=== PATIENT | female | born 1965 | race Caucasian/White ===

== ENCOUNTER 2024-11-14 23:44 | Inpatient (IN) | payer OTHER, SELFPAY ==
[2024-11-15] VITALS (15 sets, daily range): BP systolic 122–188; BP diastolic 62–101; PULSE 79–105; RESP 11–24; TEMP 36.2–37.3; O2SAT 95–99; BMI 31.9
--- NOTE | 2024-11-15 | DI.RAD.S_ITS ---
PROCEDURE: XR PELVIS 1-2V INDICATIONS: RIGHT TOTAL HIP TECHNIQUE: 1 view(s) of the pelvis acquired. COMPARISON: [facility], CR, XR HIP W PEL IF DONE RT 2V, 11/15/2024, 6:47. FINDINGS: Bones: Interval right hip arthroplasty. Left hip arthroplasty is similar to prior. Soft tissues: Postsurgical changes. IMPRESSION: Postsurgical changes following interval right hip arthroplasty. Dictated by: Ty Grant M.D. on 11/15/2024 at 15:08 Approved by: Ty Grant M.D. on 11/15/2024 at 15:09
--- NOTE | 2024-11-15 00:25 | DI.RAD.S_ITS ---
PROCEDURE: XR FEMUR RT MIN 2V INDICATIONS: pt fell with hip pain unable to bear weight TECHNIQUE: Two views of the femur were acquired. COMPARISON: [facility], CR, XR PELVIS WITH LATERAL HIP RIGHT, 06/17/2024, 14:33. FINDINGS: Bones: Decreased mineralization. There are dysplastic changes at the right femoroacetabular joint including femoral head flattening and irregularity of the acetabular cup. No significantly displaced fractures are seen. Nondisplaced fractures cannot be excluded. No hip dislocation. The knee joint is intact. Soft tissues: No suspicious soft tissue calcifications or masses. IMPRESSION: Severe right hip joint degeneration. No displaced fractures are visible. If there continues to be high suspicion for occult fracture, CT imaging is recommended. Dictated by: Chante Cerrato M.D. on 11/15/2024 at 1:07 Approved by: Chante Cerrato M.D. on 11/15/2024 at 1:13
--- NOTE | 2024-11-15 00:57 | PC.NURSE ---
did not assess pedal pulses at this time, pt sitting in w/c and with shoes which were unable to be removed at this time. pt has good sensation to lower extremity
--- NOTE | 2024-11-15 02:46 | ED.FALL ---
HPI - Fall General Chief Complaint: Fall Stated Complaint: fall, chronic rt femur problem Time Seen by Provider: 11/15/24 02:46 Source: patient Mode of arrival: Ambulatory History of Present Illness HPI Narrative: 59-year-old female reports history of severe degenerative arthritis of both hips, prior left hip replacement surgery, awaiting possible right hip surgery replacement through Dr. Novak at surgery [facility], some delay to address dental infection problems before elective surgery, my need dental extractions before elective surgery was possible. Today she was walking her usual arm brace canes, the left cane caught on something, she slipped, left leg crossed in front of her leg, unclear if she landed on her right hip, has had right-sided hip pain since then. Drove herself private vehicle here, having significant pain on weight-bearing. Related Data Allergies Allergy/AdvReac Type Severity Reaction Status Date / Time No Known Drug Allergies Allergy Verified 11/15/24 00:15 Patient History Social History household members: spouse Smoking Status: Never smoker alcohol intake: never Smoking Status: Never smoker Exam Narrative Exam Narrative: GENERAL: Well-developed patient, in mild distress. HEAD: Atraumatic. Normocephalic. EYES: Pupils equal round and reactive. Extraocular motions intact. No scleral icterus. No injection or drainage. ENT: No obvious face trauma or swelling, poor dentition noted with residual teeth, a number of teeth upper and lower missing, right TM visualized appears unremarkable, some purulence right EAC, consistent with otitis externa on the right side. NECK: Trachea midline. Non tender CARDIOVASCULAR: Regular rate and rhythm without murmurs, gallops, or rubs. RESPIRATORY: Clear to auscultation. Breath sounds equal bilaterally. No wheezes, rales, or rhonchi. GASTROINTESTINAL: Abdomen soft, non-tender, nondistended. EXTREMITIES: No tenderness to the left hip, no limb length discrepancy. Right anterior hip tenderness, no trochanteric area tenderness. No deformity or tenderness to the right knee, no right knee effusion. BACK: Nontender without deformity or crepitance. No flank tenderness. NEURO: AOx3. Motor functions grossly nonfocal SKIN: No rash or erythema of visible areas Initial Vital Signs Initial Vital Signs: Vital Signs Temperature 97.4 F L 11/15/24 00:16 Pulse Rate 96 H 11/15/24 00:16 Respiratory Rate 18 11/15/24 00:16 Blood Pressure 188/79 H 11/15/24 00:16 Pulse Oximetry 96 11/15/24 00:16 Oxygen Delivery Method Room Air 11/15/24 00:16 Course Orders Ordered: ED Orders 11/15/24 00:25 XR femur RT min 2V Stat 11/15/24 03:03 CT pelvis wo con Stat 11/15/24 04:04 Urinalysis and Microscopic Stat 11/15/24 04:05 EKG-12 Lead Stat 11/15/24 04:11 XR hip RT 1V Stat 11/15/24 04:12 XR chest 2V Stat 11/15/24 04:18 CBC Auto Diff [Complete Blood Count AUTO DIFF] Stat CMP [Comprehensive Metabolic Panel] Stat 11/15/24 04:31 Education, smoking cessation ONGOING 11/15/24 04:35 Consult to Occupational Therapy Evaluate & Treat Consult to Physical Therapy Evaluate & Treat 11/16/24 06:00 Basic Metabolic Panel Routine Complete Blood Count AUTO DIFF Routine Acetaminophen (Acetaminophen 325 Mg Tablet) 650 mg PO Q6H PRN PRN Reason: Fever/Mild Pain (1-3) Hydrocodone Bitart/Acetaminophen (Hydrocodone/Acet 5/325 Tablet) 1 tab PO Q4H PRN PRN Reason: Pain, Moderate (4-6) Hydromorphone HCl (Hydromorphone 0.5 Mg Inj) 0.5 mg IV Q2H PRN PRN Reason: Pain, Severe (7-10) Last Admin: 11/15/24 05:54 Dose: 0.5 mg Documented By: Potassium Chloride/Dextrose/Sod Cl (Dextrose 5%-0.45%Ns W/Kcl 20meq) 1,000 mls @ 84 mls/hr IV CONT LUIS ANTONIO Last Admin: 11/15/24 05:37 Dose: 84 mls/hr Documented By: Dextrose (D10w) 100 mls @ 999 mls/hr IV PRN PRN PRN Reason: Hypoglycemia Insulin Human Lispro (Insulin Lispro 100 Unit/Ml 3ml Vial) 0 unit SUBCUT Q6H [facility]; Protocol Last Admin: 11/15/24 05:45 Dose: Not Given Documented By: Naloxone HCl (Naloxone 0.4 Mg/Ml Vial) 0.2 mg IV Q2MIN PRN PRN Reason: Opiate Reversal Neomycin/Polymyxin/Hydrocortisone (Neomy/Polym B/Hc Otic 10 Ml) 4 drops EAR-BOTH TID LUIS ANTONIO Ondansetron HCl (Ondansetron 4 Mg/2 Ml Inj) 4 mg IV Q8HR PRN PRN Reason: Nausea And Vomiting Discontinued Medications Sodium Chloride (Normal Saline 0.9%) 1,000 mls @ 100 mls/hr IV CONT LUIS ANTONIO Dextrose/Sodium Chloride (Dextrose 5%-0.9% Ns) 1,000 mls @ 100 mls/hr IV CONT LUIS ANTONIO Neomycin/Polymyxin/Hydrocortisone (Neomy/Polym B/Hc Otic 10 Ml) 4 drops EAR-RIGHT NOW ONE Stop: 11/15/24 04:19 Last Admin: 11/15/24 06:10 Dose: Not Given Documented By: TAMELA Vital Signs Vital signs: Vital Signs - 8 hr 11/15/24 00:16 Temperature 97.4 F L Pulse Rate 96 H Respiratory Rate 18 Blood Pressure 188/79 H Pulse Oximetry 96 Oxygen Delivery Method Room Air MDM - Fall Lab Data Attestation: I reviewed the patient's lab results. Lab results narrative: White blood cell count 7900, hemoglobin 12.9, platelets adequate. Basic metabolic panel shows glucose 59, BUN and creatinine normal, electrolytes unremarkable. 11/15/24 04:18 11/15/24 04:18 Labs: Lab Results 11/15/24 Range/Units 04:18 WBC 7.9 (4.5-11.0) X10^3/uL RBC 4.48 (4.0-5.2) X10^6/uL Hgb 12.9 (12.0-16.0) g/dL Hct 39.0 (36-46) % MCV 87.1 (80-100) fL MCH 28.8 (26-34) PG MCHC 33.1 (30-36) % RDW 12.4 (11.6-14.8) % Plt Count 258 (150-400) X10^3/uL Neut % (Auto) 68.6 (50-75) % Lymph % (Auto) 21.2 L (25-40) % [place] % (Auto) 8.1 (3-14) % Eos % (Auto) 1.7 L (2-4) % Baso % (Auto) 0.4 (0-2) % Neut # (Auto) 5400 (1374-5422) /uL Lymph # (Auto) 1700 (5746-0106) /uL [place] # (Auto) 600 (0-900) /uL Eos # (Auto) 100 (0-450) /uL Baso # (Auto) 0 (0-100) /uL Sodium 139 (137-145) mmol/L Potassium 3.9 (3.4-5.1) mmol/L Chloride 102 (98-107) mmol/L Carbon Dioxide 30 (22-32) mmol/L BUN 27 H (7-17) mg/dL Creatinine 0.95 (0.52-1.04) mg/dL Estimated GFR > 60 (>60) mL/min BUN/Creatinine Ratio 28.4 H (6-22) Glucose 59 L (80-110) mg/dL Calcium 9.4 (8.4-10.2) mg/dL Total Bilirubin 0.3 (0.2-1.3) mg/dL AST 31 (14-36) IU/L ALT 25 (<35) IU/L Alkaline Phosphatase 67 (38-126) U/L Total Protein 7.3 (6.3-8.2) g/dL Albumin 4.5 (3.5-5.0) g/dL Globulin 2.8 (1.7-4.1) g/dL Albumin/Globulin Ratio 1.6 (1.0-2.8) ECG Data Attestation: I personally reviewed and interpreted this ECG as follows: Interpretation: Preop studies 0412, normal sinus rhythm, ventricular rate 87, incomplete right bundle branch block. OH 134, QRS 96, QTC 447. [facility] Narrative Medical decision making narrative: 59-year-old female with severe degenerative arthritis of both hips, status post prior left hip replacement, had ground level fall mechanical in nature today, subsequent right-sided hip pain, no limb length discrepancy, had been using her arm brace for partial weight-bearing baseline, having significant pain after the fall today right hip, drove herself here for further evaluation. Screening x-ray from triage in the waiting room negative for any obvious fracture. On examination is quite uncomfortable with any attempted movement of the right hip, anterior tenderness, no limb length discrepancy. CT pelvis requested. She drove herself, declines sedating medications for now. X-ray right femur two-view. Impressions: ?Severe right hip joint generation. No displaced fractures or visible. If there continues to be high suspicion for occult fracture, CT imaging recommended.? See radiology report CT of the pelvis noncontrast study. Impressions: ?Nondisplaced acute right femoral neck fracture. Severe right hip DJD.? See tele radiology report Case discussed with Orthopedic surgery Dr. Lebron, made aware of background history poor dentition, she was able to review plain film and CT images, requests additional plain film views of the hip. Requests admit to hospitalist service, she will consult, nonweightbearing right lower extremity. Keep NPO for possible surgery later today. Preop studies requested: EKG, chest x-ray, urinalysis, CBC, CMP, PT/INR. Incidental physical exam finding right-sided otitis externa, topical Cortisporin otic dose to right external auditory canal Case discussed with hospitalist Dr. Ferrari, accepts patient for admission to observation. Critical Care Time Critical Care Time Critical Care Time: Yes Total Critical Care Time: 35 Attestation: The high probability of a clinically significant, sudden or life threatening deterioration of the [orthopedic, oral/dental, otolaryngology] system(s) required my full and direct attention, intervention and personal management. The aggregate critical care time was [35] minutes. Right hip pain with initial radiograph showing no obvious fracture, additional CT imaging showed right femoral neck fracture. Incidental otitis externa started topical antibiotics. Coordination of care between orthopedic surgery on-call and hospitalist service to admit here. Preoperative studies requested, results interpreted. This time is in addition to time spent performing reported procedures but includes the following: [x] Data Review and interpretation [x] Patient assessment and monitoring of vital signs [x] Documentation [x] Medication orders and management Discharge Plan Departure Patient Disposition: Admitted as Observation Clinical Impression: Fracture of right hip, Poor dentition, Otitis externa of right ear, Hip osteoarthritis Admit Date/Time: 11/15/24 04:32 Admit Provider: Jamar Ferrari
--- NOTE | 2024-11-15 03:03 | DI.CT.S_ITS ---
PROCEDURE: CT PEL WO CON INDICATIONS: Right hip pain, fall TECHNIQUE: Noncontrast 3 mm axial sections acquired through the bony pelvis, with coronal and sagittal reformatting. COMPARISON: [facility], CR, XR FEMUR RT MIN 2V, 11/15/2024, 0:24. FINDINGS: Image quality: Diagnostic Bones: There is a nondisplaced fracture of the femoral neck in the subcapital region Severe right hip arthrosis, with mild subchondral collapse. Left hip arthroplasty in expected position. The pelvic ring appears intact. No sacroiliac dissociation. Soft tissues: Right hip joint effusion. Scattered areas of calcific tendinopathy and heterotopic ossification. Vascular calcifications. Intrapelvic structures are not well assessed on this study, no gross abnormality. IMPRESSION: Nondisplaced right hip fracture. Severe right hip arthritic changes with subchondral collapse. Agree with preliminary report. Dictated by: Ty Grant M.D. on 11/15/2024 at 8:01 Approved by: Ty Grant M.D. on 11/15/2024 at 8:03
--- NOTE | 2024-11-15 04:11 | DI.RAD.S_ITS ---
PROCEDURE: XR HIP W PEL IF DONE RT 2V INDICATIONS: needs AP pelvis and lateral view TECHNIQUE: 2 views of the hip were acquired. COMPARISON: [facility], CT, CT PEL WO CON, 11/15/2024, 3:08. [facility], CR, XR FEMUR RT MIN 2V, 11/15/2024, 0:24. FINDINGS: Bones: Left hip arthroplasty is in appropriate position. There is a right nondisplaced femoral neck fracture at the subcapital region. Severe degenerative changes of the right, with mild subchondral collapse. Soft tissues: No suspicious calcifications. IMPRESSION: Nondisplaced right femoral neck fracture at the subcapital region Severe right hip degenerative changes and subchondral collapse which can be seen with avascular necrosis. Dictated by: Ty Grant M.D. on 11/15/2024 at 7:59 Approved by: Ty Grant M.D. on 11/15/2024 at 8:00
--- NOTE | 2024-11-15 04:12 | DI.RAD.S_ITS ---
PROCEDURE: XR CHEST 1V INDICATIONS: preop CXR, fem neck fracture TECHNIQUE: One view of the chest was acquired. COMPARISON: None. FINDINGS: Surgical changes and devices: None. Lungs and pleura: Lungs appear clear. No pleural effusions or pneumothorax. Mediastinum: Mediastinal contours appear normal. Heart size is enlarged. Bones and chest wall: No suspicious bony lesions. Overlying soft tissues appear unremarkable. IMPRESSION: Lungs appear clear. Cardiomegaly. Dictated by: Jeff Murray M.D. on 11/15/2024 at 7:35 Approved by: Jeff Murray M.D. on 11/15/2024 at 7:36
--- NOTE | 2024-11-15 04:12 | EKG_ITS ---
[address] [address] Test Date: 2024-11-15 Pat Name: Indigo Chan Department: Room: Gender: Female Change Person: LATHA AKASH : 1965 Requested By: Order Number: [id number] Reading MD: Shane Moulton Measurements Intervals Robinson Rate: 87 P: 9 ID: [id number] QRS: -17 QRSD: 96 T: 25 QT: 372 QTc: 447 Interpretive Statements Normal sinus rhythm Incomplete right bundle branch block Possible Lateral infarct , age undetermined Electronically Signed On 11-15-2024 14:32:46 PST by Shane Moulton
[2024-11-15 04:37] LABS: Add Manual Diff / Slide Review NO; Basophils Absolute Auto 0 /uL (0-100); Basophils Percent Auto 0.4 % (0-2); Eosinophils Absolute Auto 100 /uL (0-450); Eosinophils Percent Auto 1.7 % (2-4); Hemoglobin 12.9 g/dL (12.0-16.0); Lymphocytes Absolute Auto 1700 /uL (1100-4500); Lymphocytes Percent Auto 21.2 % (25-40); Mean Corpuscular HGB Conc 33.1 % (30-36); Mean Corpuscular Hemoglobin 28.8 PG (26-34); Mean Corpuscular Volume 87.1 fL (80-100); Monocytes Absolute Auto 600 /uL (0-900); Monocytes Percent Auto 8.1 % (3-14); Neutrophils Absolute Auto 5400 /uL (1500-7000); Neutrophils Percent Auto 68.6 % (50-75); Platelet Count 258 X10^3/uL (150-400); Red Blood Cell Count 4.48 X10^6/uL (4.0-5.2); Red Cell Distribution Width 12.4 % (11.6-14.8); White Blood Cell Count 7.9 X10^3/uL (4.5-11.0)
--- NOTE | 2024-11-15 04:41 | P.HP_ITS ---
History of Present Illness History of Present Illness Chief complaint: fall, chronic rt femur problem Narrative: 59 year old female with past medical history of severe bilateral degenerative arthritis of both hips s/p left hip replacement and awaiting right hip replcement,IDDM with peripheral neuropathy and HTN presents with ground level fall and right hip pain. Per the patient's report, the patient acccidentaly slipped and fell landing on her right hip today. The patient denies any LOC or head injury but states that she has severe pain on her right hip and unable to ambulate. Of note, the patient was awaiting as outpatient to get her dental extractions done before right hip elective surgery. The patient otherwise denies any fever, chills, nausea, vomiting, chest pain or shortness of breath. In our ER, the patient was hemodynamically stable. CT hip shows right femoral neck fracture. Orthopedic surgery consulted and plan for OR. NOte patient was found to have otitis media and antibiotics given. Labs are pending. PFSH Social History Smoking Status: Never smoker Meds Home Medications and Allergies Allergies Allergy/AdvReac Type Severity Reaction Status Date / Time No Known Drug Allergies Allergy Verified 11/15/24 00:15 Review of Systems Review of Systems ROS: Yes All systems reviewed with the patient and are negative except as otherwise documented Exam Vital Signs (past 8 hours): - 11/15/24 00:16 Temperature 97.4 F L Pulse Rate 96 H Respiratory Rate 18 Blood Pressure 188/79 H Pulse Oximetry 96 Oxygen Delivery Method Room Air Oxygen Delivery Method Room Air Narrative Exam Narrative: Physical Exam: GENERAL: The patient is not in any acute distressed. Awake and alert. HEENT: Nonicteric sclerae, PERRLA, EOMI. Oropharynx clear. Moist mucous membranes. Conjunctivae appear well perfused. HEART: Regular rate and rhythm without murmurs. No lower extremities edema. LUNGS: Clear to auscultation bilaterally. No wheezing, crackles or rhonchi ABDOMEN: Soft, positive bowel sounds, nontender. SKIN: No rash, no excessive bruising, petechiae, or purpura. NEUROLOGIC: AxO x 3. Limited movement in RLEs due to hip pain. OTherwise Cranial nerves II-XII intact without motor/sensory deficit. Objective Labs 11/15/24 04:18 11/15/24 04:18 Labs: Laboratory Results - last 24 hr 11/15/24 04:18 WBC 7.9 RBC 4.48 Hgb 12.9 Hct 39.0 MCV 87.1 MCH 28.8 MCHC 33.1 RDW 12.4 Plt Count 258 Neut % (Auto) 68.6 Lymph % (Auto) 21.2 L [place] % (Auto) 8.1 Eos % (Auto) 1.7 L Baso % (Auto) 0.4 Neut # (Auto) 5400 Lymph # (Auto) 1700 [place] # (Auto) 600 Eos # (Auto) 100 Baso # (Auto) 0 Assessment & Plan Assessment & Plan narrative: Right hip fracture from ground level fall. Admit the patient to medical observation. Patient is medically stable and clear for OR. NPO. IVF. Pain control. Appreciates orthopedic surgery input on surgical options. Will need PT/OT and likely rehab post op. Otitis media. Continue oral antibiotics. IDDM. Will need to review home medications but hold all oral medications for now. Monitor glucose with SQ insulin. HTN. Monitor BP and resume home medications accordingly. Dental cavities. Will need to follow up as outpatient for teeth extraction. DVT PPx SCDs for now due to plan OR. Code status full code Disposition rehab in 1-2 days Time-Based Coding :: [TOTAL MINUTES] spent with patient and on the chart (including review of chart, obtaining history, exam, reviewing outside data, placing orders, documenting exam and treatment plan, and counseling patient) on [DATE].
[2024-11-15 04:45] LABS: Alanine Aminotransferase 25 IU/L (<35); Albumin 4.5 g/dL (3.5-5.0); Albumin Globulin Ratio 1.6 (1.0-2.8); Alkaline Phosphatase 67 U/L (38-126); Aspartate Aminotransferase 31 IU/L (14-36); BUN Creatinine Ratio 28.4 (6-22); Bilirubin Total 0.3 mg/dL (0.2-1.3); Blood Urea Nitrogen 27 mg/dL (7-17); Calcium 9.4 mg/dL (8.4-10.2); Carbon Dioxide 30 mmol/L (22-32); Chloride 102 mmol/L (98-107); Estimated Glomerular Filt Rate > 60 mL/min (>60); Globulin 2.8 g/dL (1.7-4.1); Glucose 59 mg/dL (80-110); HEMOLYSIS < 15 (0-50); Potassium 3.9 mmol/L (3.4-5.1); Sodium 139 mmol/L (137-145); Total Protein 7.3 g/dL (6.3-8.2)
[2024-11-15] MEDS: DEXTROSE 5%-0.45NS W/KCL 20MEQ 1,000 ML 84 MEQ IV (05:37)
[2024-11-15] MEDS: HYDROMORPHONE 0.5 MG INJ IV ×2 (05:54→09:39)
--- NOTE | 2024-11-15 07:32 | PM.HP.1 ---
History of Present Illness History of Present Illness Date Patient Seen: 11/15/24 Chief complaint: fall, chronic rt femur problem Narrative: From Night doctor: 59 year old female with past medical history of severe bilateral degenerative arthritis of both hips s/p left hip replacement and awaiting right hip replcement,IDDM with peripheral neuropathy and HTN presents with ground level fall and right hip pain. Per the patient's report, the patient acccidentaly slipped and fell landing on her right hip today. The patient denies any LOC or head injury but states that she has severe pain on her right hip and unable to ambulate. Of note, the patient was awaiting as outpatient to get her dental extractions done before right hip elective surgery. The patient otherwise denies any fever, chills, nausea, vomiting, chest pain or shortness of breath. In our ER, the patient was hemodynamically stable. CT hip shows right femoral neck fracture. Orthopedic surgery consulted and plan for OR. NOte patient was found to have otitis media and antibiotics given. Labs are pending. Additonal information: She was taken to the operating room this morning for a hemiarthroplasty and surgery went well and she had 300 mL of EBL. She was seen after coming back from the OR in his doing well. She was good pain control, she had a spinal. She denies any dyspnea, or chest pain. [facility] Social History household members: spouse lives independently: Yes caregiver/support person: Yes Smoking Status: Never smoker alcohol intake: never Meds Home Medications and Allergies Allergies Allergy/AdvReac Type Severity Reaction Status Date / Time No Known Drug Allergies Allergy Verified 11/15/24 00:15 Review of Systems Review of Systems Narrative: All else reviewed and otherwise unremarkable except as noted in the history and physical. Exam Vital Signs (past 8 hours): - 11/15/24 00:16 11/15/24 05:10 Temperature 97.4 F L Pulse Rate 96 H 89 Respiratory Rate 18 Blood Pressure 188/79 H 130/101 H Pulse Oximetry 96 98 Oxygen Delivery Method Room Air Room Air Oxygen Delivery Method Room Air Narrative Exam Narrative: NAD, alert and oriented, fluent speech, calm. Normocephalic skull, EOMI, anicteric sclera, symmetric pupils. Oropharynx unremarkable, no droop. Neck supple, midline trachea, no adenopathy. Lungs clear, normal rate and effort. Heart regular, no murmur gallop or rub. Abdomen is soft, non distended and non tender. Extremities are free of edema. Skin is free of rash or lesions. Joints are not swollen or deformed. Judgment appears to be normal. Dressing at surgical site, no hematoma. Objective ECG Impression: Normal sinus rhythm Incomplete right bundle branch block Possible Lateral infarct , age undetermined Imaging Multiple studies:: My impression: Chest x-ray reveals cardiomegaly and mild pulmonary edema with peribronchial cuffing. Hip x-ray reveals a left hip arthroplasty and a right hip fenoral neck fracture with severe degeneration of the hip joint Labs 11/15/24 04:18 11/15/24 04:18 Labs: Laboratory Results - last 24 hr 11/15/24 04:18 WBC 7.9 RBC 4.48 Hgb 12.9 Hct 39.0 MCV 87.1 MCH 28.8 MCHC 33.1 RDW 12.4 Plt Count 258 Neut % (Auto) 68.6 Lymph % (Auto) 21.2 L [place] % (Auto) 8.1 Eos % (Auto) 1.7 L Baso % (Auto) 0.4 Neut # (Auto) 5400 Lymph # (Auto) 1700 [place] # (Auto) 600 Eos # (Auto) 100 Baso # (Auto) 0 Sodium 139 Potassium 3.9 Chloride 102 Carbon Dioxide 30 BUN 27 H Creatinine 0.95 Estimated GFR > 60 BUN/Creatinine Ratio 28.4 H Glucose 59 L Calcium 9.4 Total Bilirubin 0.3 AST 31 ALT 25 Alkaline Phosphatase 67 Total Protein 7.3 Albumin 4.5 Globulin 2.8 Albumin/Globulin Ratio 1.6 Assessment & Plan Assessment & Plan narrative: 1. Right hip fracture from ground level fall. Admit the patient to medical observation. Patient is medically stable and clear for OR. NPO. IVF. Pain control. Appreciates orthopedic surgery input on surgical options. Will need PT/OT and likely rehab post op. 2. Otitis media. Continue oral antibiotics. 3. IDDM. Will need to review home medications but hold all oral medications for now. Monitor glucose with SQ insulin. 4. HTN. Monitor BP and resume home medications accordingly. 5. Dental cavities. Will need to follow up as outpatient for teeth extraction. PLAN: -S/P MARLENE, doing well. -DVT prophylaxis per Orthopedics preference, ASA BID. -continue oral antibiotics for otitis media. Patient will require at least 2 midnights of hospital care, this supports inpatient status. DVT PPx SCDs for now due to plan OR. Code status full code Disposition: SNF pending clinical course. Time-Based Coding :: 35 min spent with patient and on the chart (including review of chart, obtaining history, exam, reviewing outside data, placing orders, documenting exam and treatment plan, and counseling patient) on 11/15. Quality MIPS - Admit I confirm the patient?s Advance Care Plan is present, Code status is documented, Surrogate decision maker is in patient?s record [If Yes, STOP here]: Yes MIPS - Meds 'Current medications' to include all prescriptions, [id number] products, herbals, cannabis/cannabidiol products, and vitamin/mineral/dietary (nutritional) supplements. I have utilized all available resources to obtain, update, or review the patient?s current medications. [If Yes, STOP here]: Yes
[2024-11-15 07:34] LABS: Appearance Urine UA CLEAR; Bilirubin Urine UA NEGATIVE (NEGATIVE); Color Urine UA YELLOW; Glucose Urine UA NEGATIVE (Negative); Ketones Urine UA NEGATIVE (NEGATIVE); Leukocyte Esterase Urine UA NEGATIVE (NEGATIVE); Nitrite Urine UA NEGATIVE (Negative); Occult Blood Urine UA NEGATIVE (Negative); Protein Urine UA NEGATIVE (Negative); Specific Gravity Urine UA <=1.005 (1.000-1.035); Urobilinogen Urine UA 0.2 E.U./dL (0.2)
[2024-11-15 07:35] LABS: Urine Volume 10mL (spun)
[2024-11-15 07:42] LABS: Bacteria Urine None Seen; Culture Indicated Urine Cult Not Indicated; RBC Urine None Seen (0-5/HPF); Squamous Epithelial Cell Urine None Seen (0-5/HPF); WBC Urine None Seen (0-5/HPF)
--- NOTE | 2024-11-15 08:07 | P.CONS_ITS ---
History of Present Illness Consult details Date Patient Seen: 11/15/24 Time Patient Seen: 09:54 Chief complaint: fall, chronic rt femur problem Reason for consult: right hip fx nondisplaced Requesting provider: Leonidas Knight Narrative: 59 yo F with severe right hip DJD - apparently being worked up for elective MARLENE with a Dr. Novak (Ortho ) in [place] but on hold for dental issues....presents after GLF fall 11/14 and acute worsening R hip pain. Also now found to have an ear infefction. The patient was used forearm crutches for 2 years due to debilitating right hip arthritis. She has a history of a left total hip replacement at [facility] in 2014. States she was diagnosed with severe degenerative joint disease when she was 38. She also has insulin-dependent diabetes last hemoglobin A1c was 6.2. I was told from the ER that she had dental caries and was waiting extractions. She informs me she has already had multiple extractions years ago at the [facility] in fact she has had all teeth removed from the upper palate was given a denture. She does not have any active dental infections but may at some point have the remainder of her teeth extracted to be replaced with implants but this is not an imminent procedure and she does not have a current dental infection. She states in her workup for elective total hip replacement she was unclear why she did not receive dental clearance. She does have a new onset ear infection on the left and now also the right. She has not started antibiotics for this. She was going to go to urgent Care on the same day that she fell and broke her hip. The patient and her both state that the ear infections have been a recurrent problem for her where she will get treated and they come back recurrently. She denies any fevers she denies any chills denies any shortness of breath or cough. Denies any other injuries. She did not hit her head. She did not lose consciousness. She does note that she has right carpal tunnel syndrome and when it gets bad she typically uses a wrist brace at home. She has previously tried to use a walker in the past with her arthritis and has been unable to do so she functions better on the [employer] crutches. Meds Home Medications and Allergies Allergies Allergy/AdvReac Type Severity Reaction Status Date / Time No Known Drug Allergies Allergy Verified 11/15/24 00:15 Review of Systems Review of Systems Narrative: Right hip pain. History of left hip replacement. Previous dental extractions. No fever no chills no nausea no vomiting. Endorses bilateral ear pain. No headache. Endorses pain and numbness right wrist, carpal tunnel syndrome. ROS: Yes All systems reviewed with the patient and are negative except as otherwise documented Exam Vital Signs (past 8 hours): - 11/15/24 00:16 11/15/24 05:10 Temperature 97.4 F L Pulse Rate 96 H 89 Respiratory Rate 18 Blood Pressure 188/79 H 130/101 H Pulse Oximetry 96 98 Oxygen Delivery Method Room Air Room Air Oxygen Delivery Method Room Air Narrative Exam Narrative: General examination alert and oriented female lying in bed. Family member at bedside. No acute distress. Appears stated age. HEENT exam normocephalic atraumatic. Notes pain in her left and right ear Respiratory exam unlabored on room air lungs clear to auscultation Heart regular rate and rhythm Left lower extremity atraumatic thigh and calf soft. Demonstrates dorsiflexion plantar flexion of the ankle. Palpable dorsalis pedis pulse. Patient unable to lift left leg off the bed but states she has not been able to do this for a long time. She does demonstrate dorsiflexion and plantar flexion. Right lower extremity exam tenderness and pain in the groin. Thigh is soft. No scars. Knee without effusion. Calf soft. Demonstrates dorsiflexion plantar flexion of the ankle. Palpable dorsalis pedis pulse and grossly normal sensation in the superficial peroneal deep peroneal sural and saphenous distributions. The rest of the motor exam or the right lower extremity is deferred due to known fracture. Right upper extremity no bruising or ecchymosis. 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 Nondisplaced femoral neck fracture seen better on CT scan. Single AP view of left hip replacement in the expected position. Radiologist's impression: Nondisplaced?right?femoral?neck?fracture?at?the?subcapital?region S evere?right?hip?degenerative?changes?and?subchondral?collapse?which?can?be?seen? with?avascular?necrosis CT scan pelvis: My impression: Nondisplaced right femoral neck fracture. Severe right hip arthritis. Left total hip arthroplasty. Radiologist's impression: I MPRESSION:??Nondisplaced?right?hip?fracture.??Severe?right?hip?arthritic?changes ?with?subchondral?collapse. Agree?with?preliminary?report Labs 11/15/24 04:18 11/15/24 04:18 Labs: Laboratory Results - last 24 hr 11/15/24 11/15/24 04:18 06:46 WBC 7.9 RBC 4.48 Hgb 12.9 Hct 39.0 MCV 87.1 MCH 28.8 MCHC 33.1 RDW 12.4 Plt Count 258 Neut % (Auto) 68.6 Lymph % (Auto) 21.2 L [place] % (Auto) 8.1 Eos % (Auto) 1.7 L Baso % (Auto) 0.4 Neut # (Auto) 5400 Lymph # (Auto) 1700 [place] # (Auto) 600 Eos # (Auto) 100 Baso # (Auto) 0 Sodium 139 Potassium 3.9 Chloride 102 Carbon Dioxide 30 BUN 27 H Creatinine 0.95 Estimated GFR > 60 BUN/Creatinine Ratio 28.4 H Glucose 59 L Calcium 9.4 Total Bilirubin 0.3 AST 31 ALT 25 Alkaline Phosphatase 67 Total Protein 7.3 Albumin 4.5 Globulin 2.8 Albumin/Globulin Ratio 1.6 Urine Color Yellow Urine Appearance Clear Urine pH 7.0 Ur Specific Og[place] <=1.005 Urine Protein Negative Urine Glucose (UA) Negative Urine Ketones Negative Urine Occult Blood Negative Urine Nitrate Negative Urine Bilirubin Negative Urine Urobilinogen 0.2 Ur Leukocyte Esterase Negative Urine RBC None seen Urine WBC None seen Ur Squamous Epith Cells None seen Urine Bacteria None seen Ur Culture Indicated? Cult not indicated Vol Urine Centrifuged 10ml (spun) PFSH Social History household members: spouse lives independently: Yes caregiver/support person: Yes Tobacco & Substance Use Smoking Status: Never smoker alcohol intake: never Assessment & Plan Assessment and plan (1) Fracture of right hip: Qualifiers: Encounter type: initial encounter Fracture type: closed Qualified Code(s): S72.001A - Fracture of unspecified part of neck of right femur, initial encounter for closed fracture Status: Acute (2) Poor dentition: Problem details: Had previous extractions upper palate. Potential impending extractions for implantation but no active dental infection. Status: Acute (3) Otitis externa of right ear: Qualifiers: Chronicity: unspecified Otitis externa type: unspecified type Qualified Code(s): H60.91 - Unspecified otitis externa, right ear Status: Acute (4) Hip osteoarthritis: Qualifiers: Laterality: right Osteoarthritis type: primary Qualified Code(s): M 16.11 - Unilateral primary osteoarthritis, right hip Status: Acute Assessment & Plan narrative: 59 yo F with severe right hip DJD with new nondisplaced/incomplete right femoral neck fracture after GLF ideal treatment would be MARLENE but pt has active ear infection and initially was told also had cavities and awaiting dental extractions. She does not appear to have any active dental infection. She may at some point need future dental work if she chooses implantation we will however this does not appear imminent or a current contraindication to a hip arthroplasty treatment of her femoral neck fracture and severe degenerative joint disease. I have discussed with 1 of my joint arthroplasty partners Dr. Corona on availability and regarding the patient's comorbidities. She has controlled diabetes. She does not have any current active dental infections. She does have an ear infection that will require treatment. Given her level of arthritis surgery is less than total hip arthroplasty would not be expected to be long-term solutions to her problem and would be less than ideal. We agree the patient would be best served with total hip arthroplasty. We discussed there are risks to total hip arthroplasty. Discussed these with the patient including leg length discrepancy, dislocation, infection, fracture, need for additional procedures, wound healing problems, persistent pain, nerve or vascular injury, blood loss, DVT, PE, cardiac event, stroke paralysis or . Patient has elected to proceed. And is pleased with the plan for hip replacement. We will work on organizing operative time and implants for hip arthroplasty today with Dr. Corona and myself assisting. Regarding her wrist pain and carpal tunnel exacerbation recommend wrist brace to aid with ambulation postoperatively. Postop she will need to use her forearm crutches or a walker. Time-Based Coding :: >60min spent with patient and on the chart (including review of chart, obtaining history, exam, reviewing outside data, placing orders, documenting exam and treatment plan, and counseling patient) on [DATE].
--- NOTE | 2024-11-15 08:39 | PT-IP ANOTE ---
PT order received. Pt with chronic right fem neck fracture and s/p fall and ongoing nondisplaced fracture. Per Dr. Lebron note, pt would benefit from surgical procedure. PT will d/c order and await a new order post-op.
[2024-11-15] MEDS: NEOMY/POLYM B/HC OTIC 10 ML 4 DROPS EAR-BOTH (10:38)
--- NOTE | 2024-11-15 11:23 | DI.RAD.S_ITS ---
PROCEDURE: XR HIP W PEL IF DONE RT 2V INDICATIONS: hip replacement TECHNIQUE: 3 views of the hip were acquired. COMPARISON: [facility], , XR HIP W PEL IF DONE RT 2V, 11/15/2024, 6:47. FINDINGS: Bones: Interval right hip arthroplasty. Hardware is in appears to be in expected position. Unchanged left hip arthroplasty. Soft tissues: Postsurgical changes. IMPRESSION: Postsurgical changes of the interval right hip arthroplasty. Similar left hip arthroplasty. Dictated by: Ty Grant M.D. on 11/15/2024 at 15:44 Approved by: Ty Grant M.D. on 11/15/2024 at 15:45
[2024-11-15] MEDS: ACETAMINOPHEN 325 MG TABLET 975 MG PO (11:33)
[2024-11-15] MEDS: CELECOXIB 200 MG CAPSULE PO (11:33)
[2024-11-15] MEDS: LACTATED RINGERS 1,000 ML 42 ML IV ×2 (11:34→14:26)
[2024-11-15] MEDS: TRANEXAMIC ACID 1,000 MG VIAL 1000 MG INJ (13:41)
--- NOTE | 2024-11-15 15:45 | CM.DANOTE ---
Initial DCP Assessment Note Pt is a 59 yo female, resident of [place], presents after GLF with hip fx, scheduled for repair in the OR today 11/15. PCP: Dr Michael Corrigan: Cathy Garcia Reviewed chart, pt discussed in multidisciplinary rounds this morning. According to the ER provider; patient with severe degenerative arthritis of both hips, prior left hip replacement surgery, and awaiting possible right hip surgery replacement through Dr. Novak at surgery [facility] although surgery delayed d/t dental infection. CM team will plan to follow clinical course closely. OR today. Therapy evals will be helpful for dispo recommendation. BRENDAN Cotto Discharge Planning/Care Management CM Discharge Assessment Start: 11/15/24 15:42 Freq: Status: Active Protocol: Document 11/15/24 15:43 KHRIS (Rec: 11/15/24 15:45 [email or web address] [id number]) Discharge Planning Assessment Assigned Psychology Clinician BRENDAN Barreto DPOA/Assigned Designee Name Rolando Chan Contact Information [phone] Advance Directives? No History Provided By Medical Record Prior Living Arrangements RV Household Members spouse Type of transporation used prior to Drives own vehicle admit Comment Drove herself to the ER Independent with ADL's Yes Is patient alert and oriented? Yes Needs Assistance With Home Chores / Shopping Comment Uses arm brace canes Comment TBD Discharge Plan Home Transportation Arrangement Spouse Additional Comment Follow
--- NOTE | 2024-11-15 16:25 | P.OP_ITS ---
Operative Date/Time/Diagnoses Date of procedure: 11/15/24 Time of procedure: 11:55 Pre-op diagnosis: Severe right hip osteoarthritis, right femoral neck fracture, right hip trochanteric fracture Post-op diagnosis: same Procedure & Clinicians Procedure: Right total hip arthroplasty modifier 22 for severe osteoporosis, severe flexion contracture, obesity Right greater trochanter open reduction internal fixation Same procedure as scheduled: Yes Indications: This is a 59-year-old female who has been on [employer] crutches for 2 years because of severe right hip arthritis. She has had extensive workup and ongoing limited weight-bearing. She fell today and sustained a right femoral neck fracture with a crack in the greater trochanter. She also has severe arthritic change. She was brought to the operating room for a right total hip arthroplasty and repair as indicated. The procedure options risks benefits and complications were discussed in detail. Problems including but not limited to inflict infection, bleeding, dislocation, fracture and anesthetic complications were discussed. She has incapacitating pain and a severe fracture and needs hip arthroplasty. Surgeon: Bethanie Corona Tile Layer Supervisor: Maricel Lebron Anesthesia Type: General and Spinal Operative Notes Findings: Severe osteoporosis, severe arthritic change in the right hip with nearly auto fused joint with significant softening of the acetabulum and severe scarring and contracture of the joint, femoral neck fracture and greater trochanteric fracture, adequate stability adequate repair Closure Type: primary Specimen(s): none sent Prosthetic devices, grafts, tissues, transplants, or devices: Corona and nephew R3 58 cup, neutral poly liner,2 6.5 mm screws, size 15 synergy standard offset, 36 x +0 femoral head, multiple sutures and 1 Corona and Nephew cobalt chrome a cord cable 2.0 Estimated Blood Loss (mL): 300 Blood products transfused: none Procedure in detail: The patient was seen in the pre-operative area, where the patient identified the right hip as the operative site and this was marked with my initials. The patient received pre-operative antibiotics and was taken to the operating room and placed on the operative table in the left lateral decubitus position after satisfactory anesthesia. A maintenance advisor out was performed. The right leg was prepared from the ankle to the iliac crest with ChloroPrep in the usual fashion and draped through sterile drapes. Patient had severe right hip osteoarthritis and a right femoral neck fracture. She also had a very stiff hip. Dr. Lebron assisted the procedure and was essential for intraoperative retraction and safe implantation of the components. She had severe osteoporosis and severe stiffening of her right hip. List significantly added to the complexity of the procedure. There was a fracture in the femoral neck as well as fracture with extension into the greater trochanter. The hip was approached through an approximately 20 cm incision centered over the greater trochanter and curving gently posteriorly as it went proximally. This was carried sharply to the fascia gwyn, which was divided and retracted with a self retaining retractor. The trochanteric bursa was excised with care being taken to avoid the sciatic nerve, which was identified and protected throughout the case. The short external rotators were incised and the capsulomuscular flap was raised and tagged for later repair. There was severe scar in the hip joint. It was close to a fused hip. There was severe softening of the femur and with gentle pressure from my thumb it was obvious that there was some comminution fracture extension into the greater trochanteric region. The hip was difficult to mobilize. I meticulously dissected around the acetabulum fraying capsule and breaking up scar between the femoral head and the acetabulum. Used a saw to osteotomize a portion of the residual femoral neck. There was comminution of the femoral neck region and soft bone. The femoral head was carefully removed. I actually had to free up the femoral head in order to make it mobile enough to remove with minimal risk to the soft acetabulum a severe softened process coach. I removed multiple fragments of the head with a rongeur and carefully mobilized the femur anteriorly. The head was then removed. Retractors were placed around the femur. The canal was gently brought up into t he wound and a rongeur was used to remove a small amount of bone laterally. The canal was found with a T handled reamer. It was sequentially reamed. I carefully held the trochanter with the fracture was essentially like a trochanteric osteotomy approach. The chili pepper broach was then used, followed by sequential broaching until there was adequate stability of the broach in the femur. The bone was extremely soft. Retractors were placed to expose the acetabulum. The labrum and central soft tissues were removed. There was severe scarring around the acetabulum and I meticulously dissected the capsule free and carefully protected the sciatic nerve. Reaming was performed initially going up in 2 mm increments, then 1 mm increments until good bite was obtained with an odd sized reamer. The cup 1 mm larger than the last reamer was then inserted using the appropriate anteversion guides. It was further stabilized with 2 screws. A trial neutral liner was placed. The broach was placed in the canal. A trial head and neck were then placed and the hip relocated and checked for leg length and stability. An intraoperative film confirmed the component position. The patient was stable in the position of sleep, of squatting, and could be put through a range of motion with 45 degrees internal rotation without dislocation. At 90 degrees flexion, internal rotation to 70? was possible before dislocation. This was felt to be satisfactory and the appropriate components were opened, and the trials were removed. The acetabular liner was impacted into position. A distal cement restrictor was placed. The bone was meticulously irrigated and cleaned and dried. The final stem was then cemented into the prepared femoral canal. A brief Betadine soak was performed while trialing with head options. The hip was meticulously irrigated with normal saline. Finally the femoral head was impacted onto the stem. The acetabulum was cleared of all material and the hip relocated one final time. Next attention was directed to fixing the trochanteric fracture. The trochanter I had placed multiple sutures along the trochanter prior to cementing stem in and I carefully cleared any cement that might impinge upon the reduction of the trochanteric fracture. Patient had severe softening of the trochanter and had a main fracture line at the junction of the neck trochanteric region but there was also additional fracture lines in the trochanter. It was quite comminuted. It was fixed with multiple sutures and a cerclage cable. We then took a 2nd intraoperative film to verify the cerclage wire the alignment of the fracture and the alignment of the hip. X-rays showed adequate component position and a retained cerclage cable. The capsulomuscular flap was then repaired to the greater trochanter though an awl hole using the tag sutures. The short external rotators were repaired with a nonabsorbable suture. The fascia gwyn was closed with Vicryl. The subcutaneous layer was closed with barbed sutures and skin marlena. A agueda Dressing was applied and the patient was taken to recovery having tolerated the procedure well. Complications: none Post-operative Condition: stable Disposition: Acute Care Plan for aftercare: Weight-bearing as tolerated on the right lower extremity. No hip abductor strengthening exercises. Okay to discharge to home when stable. Routine posterior hip precautions.
[2024-11-15] MEDS: OXYCODONE IR 5 MG TABLET PO ×2 (16:49→20:27)
[2024-11-15] MEDS: hydrOXYzine 50 MG/ML INJ 25 MG IM (16:49)
[2024-11-15] MEDS: ACETAMINOPHEN 325 MG TABLET 650 MG PO (17:39)
[2024-11-15] MEDS: LACTATED RINGERS 1,000 ML 100 ML IV (17:41)
[2024-11-15] MEDS: INSULIN LISPRO 100 UNIT/ML 3ML VIAL SUBCUT ×2 (17:45→20:31)
[2024-11-15] MEDS: CEFAZOLIN 2 GM/100 ML PREMIX 100 ML IV (19:58)
[2024-11-15] MEDS: TIZANIDINE 4 MG TABLET PO (20:26)
[2024-11-15] MEDS: DOCUSATE 100 MG CAPSULE PO (20:28)
[2024-11-15] MEDS: NORTRIPTYLINE HCL 25 MG CAPSULE PO (20:28)
[2024-11-15] MEDS: ASPIRIN EC 81 MG TABLET PO (20:28)
[2024-11-15] MEDS: GABAPENTIN 300 MG CAPSULE PO (20:28)
[2024-11-15] MEDS: INSULIN GLARGINE 100 UNIT/ML 3ML PEN 10 UNIT SUBCUT (20:29)
[2024-11-16] MEDS: ACETAMINOPHEN 325 MG TABLET 650 MG PO ×3 (00:27→18:32)
[2024-11-16] MEDS: NEOMY/POLYM B/HC OTIC 10 ML 4 DROPS EAR-BOTH ×4 (00:28→21:42)
[2024-11-16] MEDS: OXYCODONE IR 5 MG TABLET PO (00:36)
[2024-11-16 00:51] VITALS: BP 162/76; PULSE 105; RESP 22; TEMP 36.3; O2SAT 98
[2024-11-16] MEDS: CEFAZOLIN 2 GM/100 ML PREMIX 100 ML IV (03:45)
[2024-11-16 04:00] VITALS: BP 149/77; PULSE 97; RESP 16; TEMP 36.4; O2SAT 93
[2024-11-16] MEDS: OXYCODONE IR 10 MG TABLET PO ×5 (04:56→23:11)
[2024-11-16 08:00] VITALS: BP 135/67; PULSE 101; RESP 18; TEMP 36.2; O2SAT 98
[2024-11-16] MEDS: TIZANIDINE 4 MG TABLET PO ×2 (08:12→21:42)
[2024-11-16] MEDS: FUROSEMIDE 40 MG TABLET PO (08:12)
[2024-11-16] MEDS: ASPIRIN EC 81 MG TABLET PO ×2 (08:12→21:18)
[2024-11-16] MEDS: CHOLECALCIFEROL (VITAMIN D3) 5,000 UNIT TABLET 10000 UNIT PO (08:12)
[2024-11-16] MEDS: ATORVASTATIN 20 MG TABLET 40 MG PO (08:12)
[2024-11-16] MEDS: DOCUSATE 100 MG CAPSULE PO ×2 (08:12→21:18)
[2024-11-16] MEDS: GABAPENTIN 300 MG CAPSULE PO ×3 (08:12→21:18)
[2024-11-16] MEDS: NORTRIPTYLINE HCL 25 MG CAPSULE PO ×2 (08:13→21:18)
[2024-11-16] MEDS: INSULIN LISPRO 100 UNIT/ML 3ML VIAL SUBCUT ×4 (08:13→21:21)
[2024-11-16] MEDS: hydroCHLOROthiazide 25 MG TABLET 12.5 MG PO (08:14)
--- NOTE | 2024-11-16 08:26 | PM.PNPO.1 ---
Subjective Subjective Date Patient Seen: 11/16/24 Time Patient Seen: 08:26 Interval history: 59 yo woman with a longstanding h/o right hip osteoarthritis suffered a GLF and subsequent femoral neck fracture. She had been waiting to proceed w/ elective right MARLENE with a surgeon in [place], and this had been delayed pending dental work. She was taken to the OR by Maulik Corona and Vi for right MARLENE on 11/15/2024. She has an extensive orthopedic history. She had a left MARLENE at in 2014. She has a h/o right knee surgeries x 2; one was a 'stapling of a tendon back to the bone,' and the other was an ACL reconstruction. She has a h/o right CTS for which she wears a wrist brace, and cervical spondylosis. She lives in a 5th wheel without enough room for her to maneuver to the toilet while using a walker. She required SNF rehab following her left MARLENE. Exam Vital Signs (past 8 hours): - 11/16/24 00:51 11/16/24 04:00 Temperature 97.3 F L 97.5 F L Pulse Rate 105 H 97 H Respiratory Rate 22 16 Blood Pressure 162/76 H 149/77 H Pulse Oximetry 98 93 Fraction of Inspired Oxygen 24 SaO2/FiO2 Ratio 404 Oxygen Delivery Method Nasal Cannula Oxygen Flow Rate 1 Narrative Exam Narrative: 5/5 strength in PF, DF, EHL on right. Says 'I can't move my knee;' she thinks she 'smushed it' during her fall. Sensation to touch intact throughout RLE, calf soft and compressible. HANNAH dressing w/ scant, scattered bloody drainage; functioning. Objective Labs 11/15/24 04:18 11/15/24 04:18 [facility] Surgical History (Updated 11/16/24 @ 08:34 by Zoe Mahmood PA-C) S/P ACL reconstruction Social History household members: spouse lives independently: Yes caregiver/support person: Yes Smoking Status: Never smoker alcohol intake: never Assessment & Plan Post-op Assessment and plan (1) S/P total hip arthroplasty: Assessment and Plan narrative: Weightbearing as tolerated to right leg. Posterior hip precautions. Continue ASA 81mg BID x 6 weeks for VTE prophylaxis. She'll likely need SNF rehab due to other possible injuries (as below) and living situation. Follow up w/ [facility] in 2 weeks for wound check and repeat imaging of hip. (2) S/P ACL reconstruction: Assessment and Plan narrative: If she has enough trouble with her right knee that it is limiting progress w/ PT, it may be worth getting an xray to r/o acute bony injury. If needed, she can be placed into a knee immobilizer for stability while walking and pursue outpatient follow up w/ her regular orthopedist for evaluation of her ACL and other graft/repair. (3) Carpal tunnel syndrome of right wrist: Assessment and Plan narrative: Continue bracing as needed. Postoperative Procedures: Procedures Operation Date: 11/15/24 10:00 Actual Procedure Side Surgeon p Total Hip Arthroplasty Right Bethanie Corona MD Postoperative day: 1
--- NOTE | 2024-11-16 08:30 | PC.NURSE ---
Addendum entered by Mimi Beltran R.N. 11/16/24 12:17: Patient given another oxycodone for discomfort to r.hip 05/20. This has been helpful to her. Worked with physical therapy and states that she was only able to take one step because it hurt her to much. Patient states that she is hoping to go to SNF for rehab. Original Note: Patient is sitting up in her chair and eating breakfast, she has no teeth and recently had hers all pulled out. Dentures do not fit as she explained the roof of her mouth is to flat and they dont stay in. No coughing or choking noted when eating. Patient has a agueda dressing to her hip that is cdi. Motor to dressing is flashing green. Given 10mg of po oxycodone for complaints of 7 pain. Talked to PA, patient states that her knee has also been bothering her, encouraged to let PA or know.
--- NOTE | 2024-11-16 10:08 | OT.IP.EVAL ---
Current Diagnoses Carpal tunnel syndrome, right upper limb (11/15/24) Unspecified otitis externa, right ear (11/15/24) Disorder of teeth and supporting structures, unspecified (11/15/24) Unilateral primary osteoarthritis, right hip (11/15/24) Fracture of unspecified part of neck of right femur, initial encounter for closed fracture (11/15/24) Presence of unspecified artificial hip joint (11/15/24) Other specified postprocedural states (11/15/24) Surgery Performed Operation Date: 11/15/24 10:00 Actual Procedures p Total Hip Arthroplasty(Right) - Bethanie Corona MD Surgical History (Last Updated 11/16/24 @ 08:34 by Zoe Mahmood PA-C) S/P ACL reconstruction Occupational Therapy Inpatient Evaluation/Re-Eval M1 PT/OT-IP Prior Functional Status Start: 11/16/24 10:41 Freq: NEEDED Status: Active Protocol: Document 11/16/24 10:41 CGR (Rec: 11/16/24 11:08 CGR [id number]) Medical Review Prior Functional Status Medical History Reviewed Yes Communication Pt is an effective verbal communicator. Mobility and Gait Pt states that she was MOD I with use of arm brace crutches . She has significant pain to B hips that limited her mobility. She states that within the 5th wheel she only used one brace because of space restrictions. Activities of Daily Living and IADL's Pt was IND in all ADLs and IADLs at baseline. She drives. She states that it was difficult for her to get in and out of her shower because it has a high lip of ~1 foot. 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 Pt's 30 yo son lives with them and can help when he is home, but works. Social History Household Members spouse Living Arrangements RV Number of Floors (Floors) One Floor Number of Stairs To Enter/Railing? 1 step to enter with railing on L assending Once inside, pt has 3 steps without rail to get to the bedroom and bathroom. Home Environment Standard Height Toilet,Walk in Shower Home Equipment Hand Held Shower Employment Status Retired Additional Social History Comment Pt has a flat bed and states that her side of the bed is up against the wall so she has to crawl over to her spot in bed. Pt states that she has ~1 foot step up into the shower. M2 OT-IP Current Condition Start: 11/16/24 10:41 Freq: Status: Active Protocol: Document 11/16/24 10:41 CGR (Rec: 11/16/24 11:08 CGR [id number]) Occupational Therapy Current Condition Current Condition Evaluation Date 11/16/24 Treatment Diagnosis fall with R hip fx s/p posterior MARLENE 11/15/24 Diagnosis Onset Date 11/15/24 Post Operative Precautions Posterior Hip Precautions No Hip Flexion > 90 degrees,No Hip Internal Rotation,No Hip Adduction Weight Bearing Status Weight Bearing Status Weight Bear as Tolerated M3 OT- IP Subjective and Pain Start: 11/16/24 10:41 Freq: Status: Active Protocol: Document 11/16/24 10:41 CGR (Rec: 11/16/24 11:08 CGR [id number]) OT- Subjective Occupational Therapy Visit Type Type Initial Evaluation Visit Start Time 09:38 Visit Stop Time 10:08 Notes Order for wrist splint recieved and printed. Pt has already been provided with wrist splint for her carpal tunnel. Placed order in patients folder. OT Pain Assessment Pain When Pain Assessed At Rest Pain Present Pain Present Pain Reported Location right hip Intensity 5 Scale Used Numeric (0 - 10) Management Techniques Modification of Treatment,Re- positioning,Timing of Activity with Medications M4 OT- IP ADL's Start: 11/16/24 10:41 Freq: Status: Active Protocol: Document 11/16/24 10:41 CGR (Rec: 11/16/24 11:08 CGR [id number]) OT [id number] Comments OT Self-Feeding Comments not meal time. Of note, pt states that she has dentures but that they don't fit well and she typically doesn't use them. OT ADL-Grooming Comments OT Grooming Comments Not performed, pt states she already performed this AM. OT ADL-Oral Care Comments Oral Care Comments Not performed, pt states she already performed this AM. OT ADL-Dressing Comments OT Dressing Comments Not performed OT ADL-Toileting Comments OT Toileting Comments Pt initially states that she would like to walk to the toilet but then states that she is not sure she can do it and instead takes 1 step forward and returns to chair. OT ADL-Bathing Comments OT Bathing Comments Not performed, not appropriate at this time. M5 OT- IP IADL's Start: 11/16/24 10:41 Freq: Status: Active Protocol: Document 11/16/24 10:41 CGR (Rec: 11/16/24 11:08 R [id number]) OT-Instrumental Activities of Daily Living Deficits IADL Deficits Identified No Deficits Home Safety Awareness Awareness of Need for Assistance at Home Good Awareness Ability to Problem Solve Emergency Able to Problem Solve Situations Medication Management Medication Management No Deficits Identified Money Management Money Management No Deficits Identified Meal Preparation Meal Preparation Comments Concerns regarding pt's ability to perform currently. 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 Driving Driving Concerns Identified Regarding Safety M6 OT- IP Functional Cognition Start: 11/16/24 10:41 Freq: Status: Active Protocol: Document 11/16/24 10:41 CGR (Rec: 11/16/24 11:08 R [id number]) Cognitive Factors Limiting Selfcare Function Cognitive Ability Level of Alertness Alert Patient Orientation Name,Age,Birthday,Month,Date, Year,Day of Week,Place, Situation Attention Span Ability Capable of Focused Attention, Capable of Sustained Attention Ability to Follow Commands Able to Follow Multi-Step Commands OT- Vision and Hearing OT- Hearing Assessment OT- Hearing Assessment WFL OT- Vision Assessment Visual Acuity WFL Visual Attentiveness WFL Occular Pursuits WFL Visual Convergence WFL M7 OT- IP Mobility and Balance Start: 11/16/24 10:41 Freq: Status: Active Protocol: Document 11/16/24 10:41 CGR (Rec: 11/16/24 11:08 [facility] [id number]) OT-Transfer Assessment Sit to and From Stand Sit to and from Stand Minimal Assistance Transfers Transfer Ability Minimal Assistance Technique Transfer Destination Chair Transfer Technique Stand Step Pivot Devices Transfer Assistive Devices Gait Belt,Front Wheeled Walker Comments Mobility Comments Pt only able to take 1 step forward today d/t pain and instability. Pt initially motivated to walk to bathroom but states she doesn't think she can do it once she is standing. OT- Balance Assessment Sitting Balance and Reactions Static Sitting Balance Ability Good Dynamic Sitting Balance Ability Good M8 OT- IP Objective Assessments Start: 11/16/24 10:41 Freq: Status: Active Protocol: Document 11/16/24 10:41 CGR (Rec: 11/16/24 11:08 CGR [id number]) OT Gross Range of Motion Upper Extremity Range of Motion Assessment Left Impaired ROM Impairments L shld impairment, pt states she thinks she tore something in the recent past. Pt states that B shlds hurt with internal rotation and states that she typically stand to wipe from the back and it is painful. OT Strength Upper Extremity Strength Assessment Within Functional Limits Comments Strength Comments for arms and hands 4/5 OT- Coordination Assessment Upper Extremity Finger to Nose Test Within Functional Limits Finger Tapping Test Within Functional Limits Comments Coordination Comments no significant deficits. OT-Muscle Tone Assessment Muscle Tone WNL Yes OT Sensation Assessment Edema Edema Present Edema Comments general minimal swelling. M9 OT- IP Assessment and Plan Start: 11/16/24 10:41 Freq: Status: Active Protocol: Document 11/16/24 10:41 CGR (Rec: 11/16/24 11:08 CGR [id number]) OT Summary Assessment and Plan Potential Rehabilitation Potential Good Analytic Complexity at Evaluation Moderate Summary OT Impairments Pain,Range of Motion,Strength, Balance,Functional Mobility, Grooming,Dressing,Toileting, Bathing,Toilet Transfers, Shower Transfers,Activity Tolerance Progress Towards Goals Progressing Toward Goals Assessment Summary Pt presents as a moderate complexity evaluation s/p admit for fall with R hip fx s /p posteiror RTHA. Per Op report: Weight-bearing as tolerated on the right lower extremity. No hip abductor strengthening exercises. Okay to discharge to home when stable. Routine posterior hip precautions. Pt with 5/10 pain resting in chair but has difficulty with sit to stand needing extra time and was only able to take 1 step forward. Pt is motivated and needed min a for mobility but is limited by painful shoulders, painful L hip, painful R knee. Pt will continue to benefit from therapy services. Recommend d/ c to SNF at discharge. Of note, order received for R wrist brace for carpal tunnel, however, pt already with brace donned when this pattern chart writer entered the room. Printout of the order placed in patients chart for future documentation needs. Goals Grooming Goal Independent Dressing Goal Independent Toileting Goal Independent Bathing Goal Independent Toilet Transfer Goal Independent Shower Transfer Goal Independent Patient/Caregiver Education Goal Demonstrate Post-Op Precautions Days to Meet Goals 20 Frequency of Treatment Other frequency 5x per week Treatment Plan OT Treatment Plan ADL Training,Functional Mobility,Therapeutic Exercises ,Patient/Family Education, Discharge Planning Other Treatment Recommendations and Next BSC transfer, ADLs seated at Treatment Focus sink if possible, LB dressing, hip precautions. Discharge Recommendations OT Discharge Recommendations SNF Rehab Transportation Needs at Discharge Wheelchair/Cabulance
--- NOTE | 2024-11-16 10:41 | ST.IPIE ---
Visit Care Team Role Provider Type Leonidas Knight MD Emergency Provider Physician Specialty: Emergency Medicine Address: [address] [place] [address], [id number] Fax: Email: [email or web address] Admit Provider Physician Attending Provider Specialty: Internal Medicine Address: [address] [place] [address], [id number] Email: [email or web address] Current Diagnoses Carpal tunnel syndrome, right upper limb (11/15/24) Unspecified otitis externa, right ear (11/15/24) Disorder of teeth and supporting structures, unspecified (11/15/24) Unilateral primary osteoarthritis, right hip (11/15/24) Fracture of unspecified part of neck of right femur, initial encounter for closed fracture (11/15/24) Presence of unspecified artificial hip joint (11/15/24) Other specified postprocedural states (11/15/24) IP 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 Ferrari Reason for Referral Trouble chewing food d/t no teeth Setting Assessment Location Acute Care Visit Type Note Type Initial evaluation Patient Information History Per H&P: 59 year old female with past medical history of severe bilateral degenerative arthritis of both hips s/p left hip replacement and awaiting right hip replcement, IDDM with peripheral neuropathy and HTN presents with ground level fall and right hip pain. Per the patient's report, the patient acccidentaly slipped and fell landing on her right hip today . The patient denies any LOC or head injury but states that she has severe pain on her right hip and unable to ambulate. Of note, the patient was awaiting as outpatient to get her dental extractions done before right hip elective surgery. The patient otherwise denies any fever, chills, nausea, vomiting, chest pain or shortness of breath. In our ER, the patient was hemodynamically stable. CT hip shows right femoral neck fracture. Orthopedic surgery consulted and plan for OR. NOte patient was found to have otitis media and antibiotics given. Labs are pending. Pt referred for ST evaluation d/t Pt without teeth and having difficulties chewing food. Subjective Observations Pt sitting upright in her chair in room. Pt awake, alert and agreeable to swallow evaluation. Pt reports she has no teeth and does not wear dentures. She reports she can bite into apples and burgers if they are moist, however needs water with them. She states her dad had a small throat opening and she believes she may also d/t trouble having food go down her throat at times. ST educated Pt on recommendation to talk with her doctor about throat dilatation. Reported by Patient/Caregiver Other Symptoms Difficulty swallowing solids Current Diet Regular (IDDSI 7) Baseline Feeding Method Independent in self-feeding The IDDSI Framework Protocol: IDDSI.1 Objective Assessment Mental Status Alert,Responsive,Cooperative Comment Pt's oral musculature appeared WFL in regards to lingual and labial strength and ROM. Pt is edentulous. Food and Liquid Trials Position During Assessment Upright (90 degrees) Liquids Trialed Thin (IDDSI 0) Solid Trials Soft & Bite-sized (IDDSI 6) Administration Type Straw,Self-feeding Oral Impairment Within functional limits Oral Phase Comments Pt consumed a chewy bar and part of a turkey sandwich with about 4 oz of thin water via straw. For solids, Pt took very small bites, prolonged mastication however adequate bolus formation and control, extended ap transport, minimal oral stasis. Pt with improved mastication and bolus control with chewy bar vs sandwich. For thin water she demonstrated adequate suction and good oral acceptance and containment. Pharyngeal Impairment Within functional limits Pharyngeal Phase Comments No overt s/s of aspiration with all PO trials or reports of food stuck in throat. Fatigue/Endurance Endurance WNL The IDDSI Framework Protocol: IDDSI.1 Findings Swallowing Function Within functional limits Severity of Swallow Impairment Within functional limits Prognosis Good Impact on Safety and Functioning No limitations Recommendations Instrumental Assessment No Swallowing Treatment No Recommended Solids Soft & Bite-sized (IDDSI 6) Recommended Liquids Thin (IDDSI 0) Other Recommendations ST recommends IDDSI 6/IDDSI 0 with the below mentioned safe swallowing strategies in place . ST recommended to Pt that she communicate with nursing/ staff if chewing/swallowing difficulties occur. Safety Precautions/Swallowing Remain upright (90 degrees) Recommendations during all oral intake,Upright position at least 30 minutes after meals,Small bites and sips when eating,Slow rate; swallow between bites, Alternate liquids and solids Medication Recommendations As Tolerated Education Patient/Caregiver Education Described results of evaluation,Patient expressed understanding of evaluation
[2024-11-16 12:00] VITALS: BP 140/52; PULSE 112; RESP 17; TEMP 36.4; O2SAT 95
--- NOTE | 2024-11-16 12:43 | CM.DPNOTE ---
DCP note REFERENCE TEST CLERK reviewed EMR Per chat, pt is POD1 hip repair. Per OT eval/PT verbal rec, rec SNF at this time. formal PT eval pending. Per [facility] website, limited SNFs they are contracted with locally, more options in [facility]. REFERENCE TEST CLERK spoke with Sarah at [facility]. unsure if they are contracted with [email or web address], will check with their director. REFERENCE TEST CLERK met with pt in room, introduced self and role. Confirm preference for SNF dc. hx of SNF in [place], hated it. REFERENCE TEST CLERK provided printed list of contracted facilities from [employer] website. Pt will review and provide preference/choices for referral by EOD. pt confirmed PCP is Dr. Coy Villegas in [place]. PASRR needed. referrals needed. P: anticipate dc to SNF pending preferences/accepting facility/ins auth. CM team will continue to follow closely BRENDAN Campbell
--- NOTE | 2024-11-16 14:34 | PT.IIE ---
Current Diagnoses Carpal tunnel syndrome, right upper limb (11/15/24) Unspecified otitis externa, right ear (11/15/24) Disorder of teeth and supporting structures, unspecified (11/15/24) Unilateral primary osteoarthritis, right hip (11/15/24) Fracture of unspecified part of neck of right femur, initial encounter for closed fracture (11/15/24) Presence of unspecified artificial hip joint (11/15/24) Other specified postprocedural states (11/15/24) Surgery Performed Operation Date: 11/15/24 10:00 Actual Procedures p Total Hip Arthroplasty(Right) - Bethanie Corona MD Surgical History (Last Updated 11/16/24 @ 08:34 by Zoe Mahmood PA-C) S/P ACL reconstruction Physical Therapy Inpatient Evaluation/Re-Eval M1 PT/OT-IP Prior Functional Status Start: 11/16/24 10:41 Freq: NEEDED Status: Active Protocol: Document 11/16/24 14:05 MB (Rec: 11/16/24 14:34 MB [id number]) Medical Review Prior Functional Status Medical History Reviewed Yes Communication Pt is an effective verbal communicator. Mobility and Gait Pt states that she was MOD I with use of [place] crutches . She has significant pain to B hips that limited her mobility. She states that within the 5th wheel she only used one brace because of space restrictions. Activities of Daily Living and IADL's Pt was IND in all ADLs and IADLs at baseline. She drives. She states that it was difficult for her to get in and out of her shower because it has a high lip of ~1 foot. 3 steps to enter bathroom and bed room. 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 Pt's 30 yo son lives with them and can help when he is home, but works. Social History Household Members spouse Living Arrangements RV Number of Floors (Floors) One Floor Number of Stairs To Enter/Railing? 1 step to enter with railing on L assending Once inside, pt has 3 steps without rail to get to the bedroom and bathroom. Home Environment Standard Height Toilet,Walk in Shower Home Equipment Hand Held Shower Employment Status Retired Additional Social History Comment Pt has a flat bed and states that her side of the bed is up against the wall so she has to crawl over to her spot in bed. Pt states that she has ~1 foot step up into the shower. M3 PT-IP Subjective Start: 11/15/24 08:37 Freq: NEEDED Status: Active Protocol: Document 11/16/24 14:05 MB (Rec: 11/16/24 14:34 MB [id number]) Subjective Physical Therapy Visit Type Type Initial Evaluation Visit Start Time 14:05 Visit Stop Time 14:23 Number of TELEPHONE SURVEYOR Visits 0 Physical Therapy Visit Comments Patient Comments Pt is agreeable to PT. Therapy Pain Assessment Pain When Pain Assessed At Rest Pain Present Pain Present Pain Reported Location right hip Scale Used I don't know numbers M4 PT-IP Mobility and Gait Start: 11/15/24 08:37 Freq: NEEDED Status: Active Protocol: Document 11/16/24 14:05 MB (Rec: 11/16/24 14:34 MB [id number]) PT-Bed Mobility Assessment Supine to Sit Supine to Sit Minimal Assistance,1 Person Assistance,Head of Bed Elevated,Bedrails Sit to Supine Sit to Supine Maximum Assistance,1 Person Assistance,Head of Bed Elevated,Bedrails Scooting Scooting to Edge of Bed Contact Guard Assistance PT-Transfer Assessment Sit to and From Stand Sit to and from Stand Minimal Assistance,1 Person Assistance,Use of Upper Extremities Equipment Transfer Assistive Device Gait Belt,Front Wheeled Walker Orthotic/Prosthetic Devices or Brace: No Transfers Transfer Destination Bed Transfer Technique Side step up to HOB Transfer Ability Level of Assist Contact Guard Assistance,1 Person Assistance,Use of Upper Extremities Gait Assessment Gait Gait Assistance Required: Contact Guard Assist Distance (Feet) 2 Able to Maintain Weight Bearing Status Yes During Gait Assistive Devices Assistive Device Gait Belt,Front Wheeled Walker Orthotic/Prosthetic Devices or Brace: No Gait Deviations General Gait Pattern Antalgic,Decreased Stride Length,Step-to Gait,Wide Based Gait Factors Limiting Gait Function Factors Limiting Gait Function Decreased Activity Tolerance, Decreased Strength,Limited Range of Motion,Pain PT-Balance Assessment Sitting Balance and Reactions Static Sitting Balance Ability Good Dynamic Sitting Balance Ability Fair Standing Balance and Reactions Static Standing Balance Ability Fair Dynamic Standing Balance Ability Fair Device Used RW M5 PT-IP Objective Assessments Start: 11/15/24 08:37 Freq: NEEDED Status: Active Protocol: Document 11/16/24 14:05 MB (Rec: 11/16/24 14:34 [id number]) Orientation Orientation/Cognition Level of Alertness Alert Orientation Name,Age,Birthday,Month,Date, Year,Day of Week,Place, Situation Language Function Ability No Deficits Noted Safety Awareness Decreased Safety Awareness Memory Description No Deficits Noted Gross Range of Motion Upper Extremity ROM Impairments Defer to OT Lower Extremity ROM Assessment Bilaterally Impaired Strength Lower Extremity Strength Assessment Bilaterally Impaired Ankle 4/5 B ankle DF and great toe extension Comments Strength Comments Pt's right foot is IR/inverted at baseline and she reports limited B hip movement from right hip issues and previous left hip placement that did not recover well and she did not get PT after it, she does not tolerate full range and strength ROM Coordination Assessment Gross Coordination Gross Coordination Impaired Sensation Assessment Sensation Gross Sensation WNL Muscle Tone Muscle Tone WNL Yes Comments Muscle Tone Comments Increased tension in B PFs M6 PT-IP Treatment Start: 11/15/24 08:37 Freq: NEEDED Status: Active Protocol: Document 11/16/24 14:05 MB (Rec: 11/16/24 14:34 [id number]) Physical Therapy Treatment Education Education Provided Precautions,Weight Bearing Status,Post-Op Packet,Safety M7 PT-IP Assessment and Plan Start: 11/15/24 08:37 Freq: NEEDED Status: Active Protocol: Document 11/16/24 14:05 MB (Rec: 11/16/24 14:34 [id number]) PT Summary Assessment and Plan Potential Rehabilitation Potential Good Status of Condition at Evaluation Evolving Summary Impairments Pain,ROM,Strength,Balance, Coordination,Bed Mobility, Transfers,Gait,Activity Tolerance Progress Towards Goals Progressing Toward Goals Assessment Summary Pt is a pleasant 59 y/o female presenting with decreased B LE ROM and strength d/t previous multiple orthopedic issues, left hip replacement and recent fall and now s/p right posterior hip replacement. Pt has posterior hip precautions and also is not supposed to have abduction strengthening per op note by Dr. Corona. Dr. Lebron also orders many hip precautions in order set for nsg. Will avoid rolling onto the right hip to avoid IR, though Dr. Lebron order does not reflect this but a different order. Pt mobilizes well with RW. Did not use PFW as suggested by Dr Rad Lebron because pt is now WBAT RLE and she only reports previous carpal tunnel issues in right arm and there is a pre-quoc brace in room if she would like to use it. She will benefit from SNF at d/c. Goals Bed Mobility Goal Independent Transfer Goal Independent,Front Wheeled Walker Gait Goal Independent,Front Wheel Walker Gait Distance 75 Other Goals Pt will ascend and descend 1 step and then 3 steps with LRAD and no more than CgA to allow safe home entrance and entrance into BR at home. Days to Meet Goals 5 Frequency of Treatment Frequency Of Treatment Once a Day Other frequency 1-2x/day Treatment Plan Physical Therapy Treatment Plan Bed Mobility Training,Transfer Training,Gait Training, Therapeutic Exercise,Balance Retraining,Post Op Education, Discharge Planning,Hot or Cold Pack,Neuromuscular Re-ed, Coordination Retraining,Manual Therapy Precautions Posterior Hip Precautions No Hip Flexion > 90 degrees,No Hip Internal Rotation,No Hip Adduction Other Precautions No hip abduction strengthening on op report Weight Bearing Status Weight Bearing Status Weight Bear as Tolerated Recommendations To Nursing Amount of Assist Needed 1 Person Assist Discharge Recommendations PT Discharge Recommendations SNF Rehab Transportation Needs at Discharge Private Vehicle
[2024-11-16 16:00] VITALS: BP 134/60; PULSE 103; RESP 19; TEMP 36.1; O2SAT 99
--- NOTE | 2024-11-16 18:43 | P.PN_ITS ---
Subjective Subjective Interval history: 59 F with chronic pain, DM admitted yesterday s/p ORIF on 11/15. Pain not well controlled this morning. She stated this morning she took oxy/tylenol 10/325 6 tabs 3x per day. Not confirmed by outpatient records. Her pain was not controlled so pain medication was increased. She then later stated 30 mg was too much. Outpatient records show 30 day Rx with 180 tabs or 6 tabs daily, 60 mg per day. Changed to 10 mg q4 hr. Exam Vital Signs (past 8 hours): - 11/16/24 12:00 11/16/24 16:00 Temperature 97.5 F L 97.0 F L Pulse Rate 112 H 103 H Respiratory Rate 17 19 Blood Pressure 140/52 L 134/60 Pulse Oximetry 95 99 Oxygen Flow Rate 0 0 Fraction of Inspired Oxygen 24 SaO2/FiO2 Ratio 404 Oxygen Delivery Method Nasal Cannula Oxygen Flow Rate 0 Narrative Exam Narrative: NAD, alert and oriented, fluent speech, calm. Sitting upright in chair. CV: RRR no m/r/g Pulm: CTA b/l Objective Labs 11/15/24 04:18 11/15/24 04:18 [facility] Surgical History (Updated 11/16/24 @ 08:34 by Zoe Mahmood PA-C) S/P ACL reconstruction Social History household members: spouse lives independently: Yes caregiver/support person: Yes Smoking Status: Never smoker alcohol intake: never Assessment & Plan Assessment & Plan narrative: 1. Right hip fracture from ground level fall. - s/p R MARLENE on 11/15. - pain not controlled then over controlled later today, continue current orders oxycodone q4 hr. - continue PT/OT, likely SNF 2. Otitis externa. Continue topical antibiotics. 3. IDDM. - continue lantus with sliding scale insulin. 4. HTN. Monitor BP and resume home medications accordingly. 5. Dental cavities. Will need to follow up as outpatient for teeth extraction. PLAN: -S/P MARLENE, doing well except for pain control, though improved this afternoon. -DVT prophylaxis per Orthopedics preference, ASA BID. - continue PT/OT, likely needs SNF. -topical antibiotics for otitis externa. Patient will require at least 2 midnights of hospital care, this supports inpatient status. DVT PPx SCDs for now due to plan OR. Code status full code Disposition: SNF pending clinical course. Time-Based Coding :: [TOTAL MINUTES] spent with patient and on the chart (including review of chart, obtaining history, exam, reviewing outside data, placing orders, documenting exam and treatment plan, and counseling patient) on [DATE].
[2024-11-16 20:00] VITALS: BP 130/59; PULSE 107; RESP 20; TEMP 36.3; O2SAT 96
[2024-11-16] MEDS: INSULIN GLARGINE 100 UNIT/ML 3ML PEN 10 UNIT SUBCUT (21:20)
[2024-11-17] VITALS: BP 124/56; PULSE 101; TEMP 36.6; O2SAT 96
[2024-11-17] MEDS: OXYCODONE IR 10 MG TABLET PO ×4 (03:25→20:46)
[2024-11-17 04:00] VITALS: BP 125/62; PULSE 110; RESP 20; TEMP 36.7; O2SAT 94
[2024-11-17] MEDS: ACETAMINOPHEN 325 MG TABLET 650 MG PO ×2 (05:24→12:20)
[2024-11-17] MEDS: TIZANIDINE 4 MG TABLET PO (05:25)
[2024-11-17 05:40] LABS: Add Manual Diff / Slide Review NO; Basophils Absolute Auto 0 /uL (0-100); Basophils Percent Auto 0.3 % (0-2); Eosinophils Absolute Auto 100 /uL (0-450); Eosinophils Percent Auto 1.1 % (2-4); Hematocrit 27.5 % (36-46); Hemoglobin 9.4 g/dL (12.0-16.0); Lymphocytes Absolute Auto 1100 /uL (1100-4500); Lymphocytes Percent Auto 16.9 % (25-40); Mean Corpuscular Hemoglobin 29.6 PG (26-34); Monocytes Absolute Auto 600 /uL (0-900); Monocytes Percent Auto 9.1 % (3-14); Neutrophils Absolute Auto 4900 /uL (1500-7000); Neutrophils Percent Auto 72.6 % (50-75); Platelet Count 236 X10^3/uL (150-400); Red Blood Cell Count 3.16 X10^6/uL (4.0-5.2); Red Cell Distribution Width 12.5 % (11.6-14.8); White Blood Cell Count 6.8 X10^3/uL (4.5-11.0)
[2024-11-17 05:47] LABS: Alanine Aminotransferase 14 IU/L (<35); Albumin 3.3 g/dL (3.5-5.0); Albumin Globulin Ratio 1.3 (1.0-2.8); Alkaline Phosphatase 61 U/L (38-126); Aspartate Aminotransferase 26 IU/L (14-36); BUN Creatinine Ratio 26.5 (6-22); Bilirubin Total 0.4 mg/dL (0.2-1.3); Blood Urea Nitrogen 22 mg/dL (7-17); Calcium 8.7 mg/dL (8.4-10.2); Carbon Dioxide 29 mmol/L (22-32); Chloride 104 mmol/L (98-107); Estimated Glomerular Filt Rate > 60 mL/min (>60); Globulin 2.6 g/dL (1.7-4.1); Glucose 194 mg/dL (80-110); HEMOLYSIS < 15 (0-50); Potassium 4.1 mmol/L (3.4-5.1); Sodium 137 mmol/L (137-145); Total Protein 5.9 g/dL (6.3-8.2)
[2024-11-17 08:00] VITALS: BP 116/59; PULSE 103; RESP 20; TEMP 36.3; O2SAT 95
[2024-11-17] MEDS: FUROSEMIDE 40 MG TABLET PO (08:08)
[2024-11-17] MEDS: CHOLECALCIFEROL (VITAMIN D3) 5,000 UNIT TABLET 10000 UNIT PO (08:08)
[2024-11-17] MEDS: NORTRIPTYLINE HCL 25 MG CAPSULE PO ×2 (08:08→20:43)
[2024-11-17] MEDS: hydroCHLOROthiazide 25 MG TABLET 12.5 MG PO (08:08)
[2024-11-17] MEDS: GABAPENTIN 300 MG CAPSULE PO ×3 (08:09→20:43)
[2024-11-17] MEDS: ATORVASTATIN 20 MG TABLET 40 MG PO (08:10)
[2024-11-17] MEDS: FLUTICASONE 120 SPRAY/16 GM SPRAY.SUSP NASAL (08:10)
[2024-11-17] MEDS: DOCUSATE 100 MG CAPSULE PO ×2 (08:10→20:43)
[2024-11-17] MEDS: NEOMY/POLYM B/HC OTIC 10 ML 4 DROPS EAR-BOTH ×3 (08:10→20:42)
[2024-11-17] MEDS: INSULIN LISPRO 100 UNIT/ML 3ML VIAL SUBCUT ×4 (08:11→20:48)
[2024-11-17] MEDS: ASPIRIN EC 81 MG TABLET PO ×2 (08:19→20:43)
--- NOTE | 2024-11-17 09:00 | PT.IPTN ---
Current Diagnoses Carpal tunnel syndrome, right upper limb (11/15/24) Unspecified otitis externa, right ear (11/15/24) Disorder of teeth and supporting structures, unspecified (11/15/24) Unilateral primary osteoarthritis, right hip (11/15/24) Fracture of unspecified part of neck of right femur, initial encounter for closed fracture (11/15/24) Presence of unspecified artificial hip joint (11/15/24) Other specified postprocedural states (11/15/24) Surgery Performed Operation Date: 11/15/24 10:00 Actual Procedures p Total Hip Arthroplasty(Right) - Bethanie Corona MD Physical Therapy Treatment Note M3 PT-IP Subjective Start: 11/15/24 08:37 Freq: NEEDED Status: Active Protocol: Document 11/17/24 09:27 TS (Rec: 11/17/24 09:38 TS [id number]) Subjective Physical Therapy Visit Type Type Treatment Note Visit Start Time 09:00 Visit Stop Time 09:25 Number of SHED BOSS Visits 1 Physical Therapy Visit Comments Patient Comments Pt found resting in the chair, she reports pain is 3/10 with mobility. Therapy Pain Assessment Pain When Pain Assessed At Rest Pain Present Pain Present Pain Reported M4 PT-IP Mobility and Gait Start: 11/15/24 08:37 Freq: NEEDED Status: Active Protocol: Document 11/17/24 09:27 TS (Rec: 11/17/24 09:38 TS [id number]) PT-Transfer Assessment Sit to and From Stand Sit to and from Stand Minimal Assistance,1 Person Assistance,Use of Upper Extremities Equipment Transfer Assistive Device Gait Belt,Front Wheeled Walker Comments Mobility Comments Pt requires education on hip precautions. She performs STS with FWW from the chair Kamari. She ambulates in the room ~50' SBA/CGA with FWW and a slow step to gait. She performs ther-ex of ankle pumps, quad sets, glute sets and heel slides x5. Pt was left in the chair, all needs met. Gait Assessment Gait Gait Assistance Required: Standby Assistance,Contact Guard Assist Distance (Feet) 50 Assistive Devices Assistive Device Gait Belt,Front Wheeled Walker Orthotic/Prosthetic Devices or Brace: No Gait Deviations General Gait Pattern Antalgic,Decreased Stride Length,Step-to Gait,Wide Based Gait Factors Limiting Gait Function Factors Limiting Gait Function Decreased Activity Tolerance, Decreased Strength,Limited Range of Motion,Pain PT-Balance Assessment Sitting Balance and Reactions Static Sitting Balance Ability Good Dynamic Sitting Balance Ability Fair Standing Balance and Reactions Static Standing Balance Ability Fair Dynamic Standing Balance Ability Fair Device Used FWW M5 PT-IP Objective Assessments Start: 11/15/24 08:37 Freq: NEEDED Status: Active Protocol: Document 11/16/24 14:05 MB (Rec: 11/16/24 14:34 MB [id number]) Orientation Orientation/Cognition Level of Alertness Alert Orientation Name,Age,Birthday,Month,Date, Year,Day of Week,Place, Situation Language Function Ability No Deficits Noted Safety Awareness Decreased Safety Awareness Memory Description No Deficits Noted Gross Range of Motion Upper Extremity ROM Impairments Defer to OT Lower Extremity ROM Assessment Bilaterally Impaired Strength Lower Extremity Strength Assessment Bilaterally Impaired Ankle 4/5 B ankle DF and great toe extension Comments Strength Comments Pt's right foot is IR/inverted at baseline and she reports limited B hip movement from right hip issues and previous left hip placement that did not recover well and she did not get PT after it, she does not tolerate full range and strength ROM Coordination Assessment Gross Coordination Gross Coordination Impaired Sensation Assessment Sensation Gross Sensation WNL Muscle Tone Muscle Tone WNL Yes Comments Muscle Tone Comments Increased tension in B PFs M6 PT-IP Treatment Start: 11/15/24 08:37 Freq: NEEDED Status: Active Protocol: Document 11/17/24 09:27 TS (Rec: 11/17/24 09:38 [id number]) Physical Therapy Treatment Education Education Provided Precautions,Weight Bearing Status,Post-Op Packet,Safety M7 PT-IP Assessment and Plan Start: 11/15/24 08:37 Freq: NEEDED Status: Active Protocol: Document 11/17/24 09:27 TS (Rec: 11/17/24 09:38 [id number]) PT Summary Assessment and Plan Potential Rehabilitation Potential Good Summary Impairments Pain,ROM,Strength,Balance, Coordination,Bed Mobility, Transfers,Gait,Activity Tolerance Progress Towards Goals Progressing Toward Goals Assessment Summary Indigo is making some progress with her mobility. She required Kamari for STS from low surface of the chair. She ambulates ~50 in the room SBA/ CGA. She has difficulty recalling hip precautions and required education. She rated her pain 3/10 at this time. PT is recommending acute vs SNF at this time. Pt's spouse will not be able to assist her due to weakness from strokes. She is having difficulty with bed mobility and standing. She would benefit from continued therapy to improve strength and functional mobility before d/c home. Goals Bed Mobility Goal Independent Transfer Goal Independent,Front Wheeled Walker Gait Goal Independent,Front Wheel Walker Gait Distance 75 Other Goals Pt will ascend and descend 1 step and then 3 steps with LRAD and no more than CgA to allow safe home entrance and entrance into BR at home. Days to Meet Goals 5 Frequency of Treatment Frequency Of Treatment Once a Day Other frequency 1-2x/day Treatment Plan Physical Therapy Treatment Plan Bed Mobility Training,Transfer Training,Gait Training, Therapeutic Exercise,Balance Retraining,Post Op Education, Discharge Planning,Hot or Cold Pack,Neuromuscular Re-ed, Coordination Retraining,Manual Therapy Precautions Posterior Hip Precautions No Hip Flexion > 90 degrees,No Hip Internal Rotation,No Hip Adduction Other Precautions No hip abduction strengthening on op report Weight Bearing Status Weight Bearing Status Weight Bear as Tolerated Recommendations To Nursing Amount of Assist Needed 1 Person Assist Discharge Recommendations PT Discharge Recommendations SNF vs Acute Rehab Transportation Needs at Discharge Private Vehicle
--- NOTE | 2024-11-17 09:05 | PM.PNPO.1 ---
Subjective Subjective Date Patient Seen: 11/17/24 Time Patient Seen: 07:30 Interval history: Pain controlled. Denies fever or chills. No N/V. Exam Vital Signs (past 8 hours): - 11/17/24 04:00 11/17/24 08:00 Temperature 98.1 F 97.3 F L Pulse Rate 110 H 103 H Respiratory Rate 20 20 Blood Pressure 125/62 116/59 L Pulse Oximetry 94 95 Oxygen Flow Rate 0 0 Fraction of Inspired Oxygen 24 SaO2/FiO2 Ratio 404 Oxygen Delivery Method Nasal Cannula Oxygen Flow Rate 0 Narrative Exam Narrative: 59 year old female in NAD, Dressing CDI, HANNAH on and functioning. Sensation grossly intact to light touch distal RLE, motor function is intact to RLE. Const General: cooperative and comfortable Nutritional Appearance: obese (BMI 32) Orientation: alert Resp Effort & Inspection: normal respiratory effort and able to speak in complete sentences Objective Labs 11/17/24 05:20 11/17/24 05:20 Labs: Laboratory Results - last 24 hr 11/17/24 05:20 WBC 6.8 RBC 3.16 L Hgb 9.4 L Hct 27.5 L MCV 87.0 MCH 29.6 MCHC 34.0 RDW 12.5 Plt Count 236 Neut % (Auto) 72.6 Lymph % (Auto) 16.9 L [place] % (Auto) 9.1 Eos % (Auto) 1.1 L Baso % (Auto) 0.3 Neut # (Auto) 4900 Lymph # (Auto) 1100 Summit # (Auto) 600 Eos # (Auto) 100 Baso # (Auto) 0 Sodium 137 Potassium 4.1 Chloride 104 Carbon Dioxide 29 BUN 22 H Creatinine 0.83 Estimated GFR > 60 BUN/Creatinine Ratio 26.5 H Glucose 194 H D Calcium 8.7 Magnesium 2.0 Total Bilirubin 0.4 AST 26 ALT 14 Alkaline Phosphatase 61 Total Protein 5.9 L Albumin 3.3 L Globulin 2.6 Albumin/Globulin Ratio 1.3 PFSH Surgical History S/P ACL reconstruction Social History household members: spouse lives independently: Yes caregiver/support person: Yes Smoking Status: Never smoker alcohol intake: never Assessment & Plan Post-op Postoperative Procedures: Procedures Operation Date: 11/15/24 10:00 Actual Procedure Side Surgeon p Total Hip Arthroplasty Right Bethanie Corona MD Postoperative day: 2 Postoperative status: doing well Postoperative plan: routine post-op care Postoperative plan narrative: (1) S/P total hip arthroplasty: Weightbearing as tolerated to right leg. Posterior hip precautions. *No hip abductor strengthening exercises Continue ASA 81mg BID x 6 weeks for VTE prophylaxis. She'll likely need SNF rehab due to other possible injuries (as below) and living situation. Follow up w/ [facility] in 2 weeks for wound check and repeat imaging of hip. (2) S/P ACL reconstruction: If she has enough trouble with her right knee that it is limiting progress w/ PT, it may be worth getting an xray to r/o acute bony injury. If needed, she can be placed into a knee immobilizer for stability while walking and pursue outpatient follow up w/ her regular orthopedist for evaluation of her ACL and other graft/repair. (3) Carpal tunnel syndrome of right wrist: Continue bracing as needed.
--- NOTE | 2024-11-17 09:54 | OT.IP.TRT ---
Current Diagnoses Carpal tunnel syndrome, right upper limb (11/15/24) Unspecified otitis externa, right ear (11/15/24) Disorder of teeth and supporting structures, unspecified (11/15/24) Unilateral primary osteoarthritis, right hip (11/15/24) Fracture of unspecified part of neck of right femur, initial encounter for closed fracture (11/15/24) Presence of unspecified artificial hip joint (11/15/24) Other specified postprocedural states (11/15/24) Surgery Performed Operation Date: 11/15/24 10:00 Actual Procedures p Total Hip Arthroplasty(Right) - Bethanie Corona MD Occupational Therapy Treatment Note M2 OT-IP Current Condition Start: 11/16/24 10:41 Freq: Status: Active Protocol: Document 11/16/24 10:41 CGR (Rec: 11/16/24 11:08 CGR [id number]) Occupational Therapy Current Condition Current Condition Evaluation Date 11/16/24 Treatment Diagnosis fall with R hip fx s/p posterior MARLENE 11/15/24 Diagnosis Onset Date 11/15/24 Post Operative Precautions Posterior Hip Precautions No Hip Flexion > 90 degrees,No Hip Internal Rotation,No Hip Adduction Weight Bearing Status Weight Bearing Status Weight Bear as Tolerated M3 OT- IP Subjective and Pain Start: 11/16/24 10:41 Freq: Status: Active Protocol: Document 11/17/24 09:55 CCC (Rec: 11/17/24 10:06 [facility] [id number]) OT- Subjective Occupational Therapy Visit Type Type Treatment Note Visit Start Time 09:29 Visit Stop Time 09:54 Occupational Therapy Visit Comments Patient Comments Pt agreed to get up to use the bathroom and do oral care needs at the sink. Patient/Caregiver Goals TO get better. OT Pain Assessment Pain When Pain Assessed At Rest Pain Present Pain Present Pain Reported Location right hip Intensity 2 Scale Used Numeric (0 - 10) M4 OT- IP ADL's Start: 11/16/24 10:41 Freq: Status: Active Protocol: Document 11/17/24 09:55 CCC (Rec: 11/17/24 10:06 [facility] [id number]) OT [id number] Comments OT Self-Feeding Comments Not at meal time. OT ADL-Grooming General Evaluation Grooming Ability Standby Assistance Comments OT Grooming Comments Able to do while standing at the sink. OT ADL-Oral Care General Eval Oral Care Ability Independent Comments Oral Care Comments WHile standing with FWW. OT ADL-Dressing General Eval Lower Body Dressing Ability Standby Assistance,Minimal Assistance Comments OT Dressing Comments Pt able to practice use of distance learning administrator and sock aid for socks . Pt has zippers on the side of her boots and will need assist at home. OT ADL-Toileting General Evaluation Toileting Ability Standby Assistance,Minimal Assistance Comments OT Toileting Comments Pt has good understanding to stand and wipe at this time. Pt will need SILVESTRE for completeness and assist for clothing at this time. OT ADL-Bathing Comments OT Bathing Comments Not performed. To try tomorrow as appropriate. M5 OT- IP IADL's Start: 11/16/24 10:41 Freq: Status: Active Protocol: Document 11/16/24 10:41 CGR (Rec: 11/16/24 11:08 CGR [id number]) OT-Instrumental Activities of Daily Living Deficits IADL Deficits Identified No Deficits Home Safety Awareness Awareness of Need for Assistance at Home Good Awareness Ability to Problem Solve Emergency Able to Problem Solve Situations Medication Management Medication Management No Deficits Identified Money Management Money Management No Deficits Identified Meal Preparation Meal Preparation Comments Concerns regarding pt's ability to perform currently. Supervisor Phosphorus Processing Supervisor Phosphorus Processing Comments Concerns regarding pt's ability to perform currently. Driving Driving Concerns Identified Regarding Safety M6 OT- IP Functional Cognition Start: 11/16/24 10:41 Freq: Status: Active Protocol: Document 11/17/24 09:55 [facility] (Rec: 11/17/24 10:06 [facility] [id number]) Cognitive Factors Limiting Selfcare Function Cognitive Ability Level of Alertness Alert Patient Orientation Name,Age,Birthday,Month,Date, Year,Day of Week,Place, Situation Attention Span Ability Capable of Focused Attention, Capable of Sustained Attention Ability to Follow Commands Able to Follow Multi-Step Commands Memory Description Short Term Impaired Safety Awareness Decreased Recall of Precautions Cognitive Comments Cognitive Assessment Comments Pt still having difficulty to recall all her hip precautions and able to recall 2/3 at this time. M7 OT- IP Mobility and Balance Start: 11/16/24 10:41 Freq: Status: Active Protocol: Document 11/17/24 09:55 [facility] (Rec: 11/17/24 10:06 [facility] [id number]) OT-Transfer Assessment Sit to and From Stand Sit to and from Stand Minimal Assistance,Moderate Assistance Transfers Transfer Ability Contact Guard Assistance, Minimal Assistance Technique Transfer Destination Bedside Commode,Chair,Toilet Transfer Technique Stand Step Pivot Devices Transfer Assistive Devices Gait Belt,Front Wheeled Walker Comments Mobility Comments Pt having heavy use of her arms on the armrest of the recliner to walk herself up in order to come to stand with SILVESTRE and from lower surfaces especially without armrest with need extensive assist at least MODA to MAX A. ONce on her feet pt is CGA and needing SILVESTRE to help lower pt down. OT- Balance Assessment Sitting Balance and Reactions Static Sitting Balance Ability Normal Dynamic Sitting Balance Ability Good Standing Balance and Reactions Static Standing Balance Ability Good Dynamic Standing Balance Ability Fair M8 OT- IP Objective Assessments Start: 11/16/24 10:41 Freq: Status: Active Protocol: Document 11/16/24 10:41 CGR (Rec: 11/16/24 11:08 CGR [id number]) OT Gross Range of Motion Upper Extremity Range of Motion Assessment Left Impaired ROM Impairments L shld impairment, pt states she thinks she tore something in the recent past. Pt states that B shlds hurt with internal rotation and states that she typically stand to wipe from the back and it is painful. OT Strength Upper Extremity Strength Assessment Within Functional Limits Comments Strength Comments for arms and hands 4/5 OT- Coordination Assessment Upper Extremity Finger to Nose Test Within Functional Limits Finger Tapping Test Within Functional Limits Comments Coordination Comments no significant deficits. OT-Muscle Tone Assessment Muscle Tone WNL Yes OT Sensation Assessment Edema Edema Present Edema Comments general minimal swelling. M9 OT- IP Assessment and Plan Start: 11/16/24 10:41 Freq: Status: Active Protocol: Document 11/17/24 09:55 [facility] (Rec: 11/17/24 10:06 [facility] [id number]) OT Summary Assessment and Plan Potential Rehabilitation Potential Good Analytic Complexity at Evaluation Moderate Summary OT Impairments Pain,Range of Motion,Strength, Balance,Functional Mobility, Grooming,Dressing,Toileting, Bathing,Toilet Transfers, Shower Transfers,Activity Tolerance Progress Towards Goals Progressing Toward Goals Assessment Summary Pt increased activity tolerance and able to walk to the bathroom with FWW to toilet and sink for oral care needs. Pt still having difficulty to recall all her hip precautions. Pt heavily relying on her arms in order to come to stand. Pt will benefit from acute rehab to help improve her independence with needs, especially since her house set-up in not ideal and not able to change. IN addition her spouse is limited to be able to physically assist her. Therefore pt will benefit from acute rehab. Goals Grooming Goal Independent Dressing Goal Independent Toileting Goal Independent Bathing Goal Independent Toilet Transfer Goal Independent Shower Transfer Goal Independent Patient/Caregiver Education Goal Demonstrate Post-Op Precautions Days to Meet Goals 15 Frequency of Treatment Other frequency 5x per week Treatment Plan OT Treatment Plan ADL Training,Functional Mobility,Therapeutic Exercises ,Patient/Family Education, Discharge Planning Other Treatment Recommendations and Next Shower Treatment Focus Discharge Recommendations OT Discharge Recommendations Acute Rehab Transportation Needs at Discharge Private Vehicle,Wheelchair/ Cabulance
--- NOTE | 2024-11-17 10:54 | CM.DPNOTE ---
Addendum entered by Cari AlonzoBRENDAN dumont 11/17/24 15:49: Per Radha at [facility], unable to accept due to not enough high enough acuity for medical management need. WASTE EXAMINER unable to share denial news with pt at this time. WASTE EXAMINER team will need to place SNF referrals in [facility], per [employer] website, contracted with Nael SHAW and Raj SHAW. Original Note: DCP continued Per pt, SNF preference [place]. WASTE EXAMINER spoke with Sarah from [facility] again, confirmed with her boss they are not contracted with [employer] despite what the [employer] website says. WASTE EXAMINER reviewed options with pt. Pt agreeable to [facility] referral, preference seems to be closest care to home possible WASTE EXAMINER spoke with Radha from [facility]. Agreed to review, pt just needs to have a med management reason to be accepted. COLIN Contreras kindly agreed to send referral information. WASTE EXAMINER spoke with Opal from [facility], confirms they are not contracted with [employer] WASTE EXAMINER spoke with Beatriz from [facility], reports that for [employer] the pt's PCP needs to go through a prior auth process to approve HH and that can delay care up to weeks. Beatriz reports their policy is not to accept pt's for HH care/they do not feel comfortable with dc until ins auth is processed and that can take up to weeks/to a month unless DCP/CM reaches out directly to PCP to attempt to expedite the process. per provider in morning rounds, likely another few days before stable to dc. need updated labs/pt could potentially benefit from [facility]? SNF vs [facility] vs potential swing bed? [facility] reviewing. Barrier: [employer] Auth. CM team will continue to follow closely BRENDAN Campbell
[2024-11-17 12:00] VITALS: BP 114/59; PULSE 95; RESP 14; TEMP 35.8; O2SAT 97
--- NOTE | 2024-11-17 14:00 | PT.IPTN ---
Current Diagnoses Carpal tunnel syndrome, right upper limb (11/15/24) Unspecified otitis externa, right ear (11/15/24) Disorder of teeth and supporting structures, unspecified (11/15/24) Unilateral primary osteoarthritis, right hip (11/15/24) Fracture of unspecified part of neck of right femur, initial encounter for closed fracture (11/15/24) Presence of unspecified artificial hip joint (11/15/24) Other specified postprocedural states (11/15/24) Surgery Performed Operation Date: 11/15/24 10:00 Actual Procedures p Total Hip Arthroplasty(Right) - Bethanie Corona MD Physical Therapy Treatment Note M3 PT-IP Subjective Start: 11/15/24 08:37 Freq: NEEDED Status: Active Protocol: Document 11/17/24 14:00 AB (Rec: 11/17/24 16:55 AB [id number]) Subjective Physical Therapy Visit Type Type Treatment Note Visit Start Time 14:00 Visit Stop Time 14:20 Number of TRAVELING NURSE Visits 0 Physical Therapy Visit Comments Patient Comments agreeable to do PT Therapy Pain Assessment Pain When Pain Assessed At Rest Pain Present Pain Present Pain Reported Location right hip Intensity 3 Scale Used Numeric (0 - 10) Pain Behaviors Guarding Pain Management Techniques Apply Cold,Distraction, Modification of Treatment,Re- positioning,Timing of Activity with Medications M4 PT-IP Mobility and Gait Start: 11/15/24 08:37 Freq: NEEDED Status: Active Protocol: Document 11/17/24 14:00 AB (Rec: 11/17/24 16:55 AB [id number]) PT-Transfer Assessment Sit to and From Stand Sit to and from Stand Minimal Assistance,1 Person Assistance,Use of Upper Extremities Equipment Transfer Assistive Device Gait Belt,Front Wheeled Walker Orthotic/Prosthetic Devices or Brace: No Comments Mobility Comments pt sitting on the chair and agreeable to do PT. reviewed hip precautions with pt and pt able to recall. pt completed sit to stand from the chair min A and max cues. pt ambulated in room using FWW ~ 60 ft CGA to min A and cues for safety. presents with unsteady antalgic gait. pt sat on chair. educated pt on sit<>stand techniques. pt completed sit <>stand x 3 reps min A and cues. pt sat back on chair and positioned. call light and table placed within reach. Gait Assessment Gait Gait Assistance Required: Contact Guard Assist,Minimum Assistance Distance (Feet) 60 Able to Maintain Weight Bearing Status Yes During Gait Assistive Devices Assistive Device Gait Belt,Front Wheeled Walker Orthotic/Prosthetic Devices or Brace: No Gait Deviations General Gait Pattern Antalgic,Decreased Stride Length,Decreased Feet Clearance Factors Limiting Gait Function Factors Limiting Gait Function Decreased Activity Tolerance, Decreased Strength,Limited Range of Motion,Pain,Poor Balance,Poor Safety Awareness M5 PT-IP Objective Assessments Start: 11/15/24 08:37 Freq: NEEDED Status: Active Protocol: Document 11/16/24 14:05 MB (Rec: 11/16/24 14:34 MB [id number]) Orientation Orientation/Cognition Level of Alertness Alert Orientation Name,Age,Birthday,Month,Date, Year,Day of Week,Place, Situation Language Function Ability No Deficits Noted Safety Awareness Decreased Safety Awareness Memory Description No Deficits Noted Gross Range of Motion Upper Extremity ROM Impairments Defer to OT Lower Extremity ROM Assessment Bilaterally Impaired Strength Lower Extremity Strength Assessment Bilaterally Impaired Ankle 4/5 B ankle DF and great toe extension Comments Strength Comments Pt's right foot is IR/inverted at baseline and she reports limited B hip movement from right hip issues and previous left hip placement that did not recover well and she did not get PT after it, she does not tolerate full range and strength ROM Coordination Assessment Gross Coordination Gross Coordination Impaired Sensation Assessment Sensation Gross Sensation WNL Muscle Tone Muscle Tone WNL Yes Comments Muscle Tone Comments Increased tension in B PFs M6 PT-IP Treatment Start: 11/15/24 08:37 Freq: NEEDED Status: Active Protocol: Document 11/17/24 14:00 AB (Rec: 11/17/24 16:55 AB [id number]) Physical Therapy Treatment Education Education Provided Precautions,Safety M7 PT-IP Assessment and Plan Start: 11/15/24 08:37 Freq: NEEDED Status: Active Protocol: Document 11/17/24 14:00 AB (Rec: 11/17/24 16:55 AB [id number]) PT Summary Assessment and Plan Potential Rehabilitation Potential Good Summary Impairments Pain,ROM,Strength,Balance, Coordination,Sensation,Tone, Cognition,Bed Mobility, Transfers,Gait,Activity Tolerance Progress Towards Goals Slow Progress due to Activity Tolerance,Slow Progress - Other Assessment Summary pt improving slowly with mobility and requiries min A for sit to stand and CGA to min A for ambulation using FWW and cues for safety. pt lives with spouse but spouse will not be able to assist pt due to his own medical conditions. pt will benefit from SNF rehab to improve mobility independence prior to d/c home . Goals Bed Mobility Goal Independent Transfer Goal Independent,Front Wheeled Walker Gait Goal Independent,Front Wheel Walker Gait Distance 75 Other Goals Pt will ascend and descend 1 step and then 3 steps with LRAD and no more than CgA to allow safe home entrance and entrance into BR at home. Days to Meet Goals 5 Frequency of Treatment Frequency Of Treatment Once a Day Other frequency 1-2x/day Treatment Plan Physical Therapy Treatment Plan Bed Mobility Training,Transfer Training,Gait Training, Therapeutic Exercise,Balance Retraining,Post Op Education, Discharge Planning,Hot or Cold Pack,Neuromuscular Re-ed, Coordination Retraining,Manual Therapy Precautions Posterior Hip Precautions No Hip Flexion > 90 degrees,No Hip Internal Rotation,No Hip Adduction Other Precautions No hip abduction strengthening on op report Weight Bearing Status Weight Bearing Status Weight Bear as Tolerated Allowed Weight Bearing Amount (enter % RLE WBAT or #) (%) Recommendations To Nursing Amount of Assist Needed 1 Person Assist Discharge Recommendations PT Discharge Recommendations SNF vs Acute Rehab Transportation Needs at Discharge Private Vehicle
[2024-11-17 16:00] VITALS: BP 145/75; PULSE 100; RESP 18; TEMP 36.5; O2SAT 97
--- NOTE | 2024-11-17 16:11 | PM.PN.1 ---
Subjective Subjective Interval history: 59 F with chronic pain, DM admitted yesterday s/p ORIF on 11/15. Doing much better today, more mobile. Exam Vital Signs (past 8 hours): - 11/17/24 12:00 Temperature 96.4 F L Pulse Rate 95 H Respiratory Rate 14 Blood Pressure 114/59 L Pulse Oximetry 97 Oxygen Flow Rate 0 Fraction of Inspired Oxygen 24 SaO2/FiO2 Ratio 404 Oxygen Delivery Method Nasal Cannula Oxygen Flow Rate 0 Narrative Exam Narrative: NAD, alert and oriented, fluent speech, calm. Sitting upright in chair. CV: RRR no m/r/g Pulm: CTA b/l Objective Labs 11/17/24 05:20 11/17/24 05:20 Labs: Laboratory Results - last 24 hr 11/17/24 05:20 WBC 6.8 RBC 3.16 L Hgb 9.4 L Hct 27.5 L MCV 87.0 MCH 29.6 MCHC 34.0 RDW 12.5 Plt Count 236 Neut % (Auto) 72.6 Lymph % (Auto) 16.9 L Dickson % (Auto) 9.1 Eos % (Auto) 1.1 L Baso % (Auto) 0.3 Neut # (Auto) 4900 Lymph # (Auto) 1100 Dickson # (Auto) 600 Eos # (Auto) 100 Baso # (Auto) 0 Sodium 137 Potassium 4.1 Chloride 104 Carbon Dioxide 29 BUN 22 H Creatinine 0.83 Estimated GFR > 60 BUN/Creatinine Ratio 26.5 H Glucose 194 H D Calcium 8.7 Magnesium 2.0 Total Bilirubin 0.4 AST 26 ALT 14 Alkaline Phosphatase 61 Total Protein 5.9 L Albumin 3.3 L Globulin 2.6 Albumin/Globulin Ratio 1.3 PFSH Surgical History S/P ACL reconstruction Social History household members: spouse lives independently: Yes caregiver/support person: Yes Smoking Status: Never smoker alcohol intake: never Assessment & Plan Assessment & Plan narrative: 1. Right hip fracture from ground level fall. - s/p R MARLENE on 11/15. - pain not controlled then over controlled later today, continue current orders oxycodone q4 hr. - continue PT/OT, likely SNF 2. Otitis externa. Continue topical antibiotics. 3. IDDM. - continue lantus with sliding scale insulin. 4. HTN. Monitor BP and resume home medications accordingly. 5. Dental cavities. Will need to follow up as outpatient for teeth extraction. PLAN: -S/P MARLENE, doing well today -DVT prophylaxis per Orthopedics preference, ASA BID. - continue PT/OT, likely needs SNF but difficult placement at this time. Appreciate case management evaluations. -topical antibiotics for otitis externa. Patient will require at least 2 midnights of hospital care, this supports inpatient status. DVT PPx SCDs for now due to plan OR. Code status full code Disposition: possible SNF if able to find accepting facility, possible discharge home. Time-Based Coding :: [TOTAL MINUTES] spent with patient and on the chart (including review of chart, obtaining history, exam, reviewing outside data, placing orders, documenting exam and treatment plan, and counseling patient) on [DATE].
[2024-11-17 20:00] VITALS: BP 150/64; PULSE 93; RESP 20; TEMP 36.1; O2SAT 99
[2024-11-17] MEDS: INSULIN GLARGINE 100 UNIT/ML 3ML PEN 10 UNIT SUBCUT (20:47)
[2024-11-18] VITALS: BP 135/68; PULSE 102; RESP 20; TEMP 36.6; O2SAT 98
[2024-11-18] MEDS: OXYCODONE IR 10 MG TABLET PO ×4 (01:26→23:02)
[2024-11-18] MEDS: ACETAMINOPHEN 325 MG TABLET 650 MG PO ×4 (01:38→23:04)
[2024-11-18 04:00] VITALS: BP 135/50; PULSE 90; RESP 20; TEMP 36.8; O2SAT 100
[2024-11-18 05:52] LABS: Add Manual Diff / Slide Review NO; Basophils Absolute Auto 0 /uL (0-100); Basophils Percent Auto 0.6 % (0-2); Eosinophils Absolute Auto 100 /uL (0-450); Eosinophils Percent Auto 2.3 % (2-4); Hematocrit 25.3 % (36-46); Hemoglobin 8.5 g/dL (12.0-16.0); Lymphocytes Absolute Auto 1200 /uL (1100-4500); Mean Corpuscular HGB Conc 33.6 % (30-36); Mean Corpuscular Hemoglobin 29.1 PG (26-34); Mean Corpuscular Volume 86.8 fL (80-100); Monocytes Absolute Auto 400 /uL (0-900); Neutrophils Absolute Auto 3100 /uL (1500-7000); Neutrophils Percent Auto 63.1 % (50-75); Platelet Count 227 X10^3/uL (150-400); Red Blood Cell Count 2.92 X10^6/uL (4.0-5.2); Red Cell Distribution Width 12.2 % (11.6-14.8); White Blood Cell Count 4.9 X10^3/uL (4.5-11.0)
[2024-11-18 06:02] LABS: Alanine Aminotransferase 12 IU/L (<35); Albumin 3.2 g/dL (3.5-5.0); Albumin Globulin Ratio 1.3 (1.0-2.8); Alkaline Phosphatase 57 U/L (38-126); Aspartate Aminotransferase 22 IU/L (14-36); BUN Creatinine Ratio 24.1 (6-22); Bilirubin Total 0.4 mg/dL (0.2-1.3); Blood Urea Nitrogen 19 mg/dL (7-17); Calcium 8.6 mg/dL (8.4-10.2); Carbon Dioxide 31 mmol/L (22-32); Chloride 103 mmol/L (98-107); Estimated Glomerular Filt Rate > 60 mL/min (>60); Globulin 2.5 g/dL (1.7-4.1); Glucose 207 mg/dL (80-110); HEMOLYSIS < 15 (0-50); Potassium 3.9 mmol/L (3.4-5.1); Sodium 137 mmol/L (137-145); Total Protein 5.7 g/dL (6.3-8.2)
[2024-11-18] MEDS: FLUTICASONE 120 SPRAY/16 GM SPRAY.SUSP NASAL (07:44)
[2024-11-18] MEDS: NEOMY/POLYM B/HC OTIC 10 ML 4 DROPS EAR-BOTH ×3 (07:45→21:34)
[2024-11-18] MEDS: hydroCHLOROthiazide 25 MG TABLET 12.5 MG PO (07:45)
[2024-11-18] MEDS: CHOLECALCIFEROL (VITAMIN D3) 5,000 UNIT TABLET 10000 UNIT PO (07:45)
[2024-11-18] MEDS: FUROSEMIDE 40 MG TABLET PO (07:45)
[2024-11-18] MEDS: ASPIRIN EC 81 MG TABLET PO ×2 (07:46→21:34)
[2024-11-18] MEDS: GABAPENTIN 300 MG CAPSULE PO ×3 (07:46→21:34)
[2024-11-18] MEDS: NORTRIPTYLINE HCL 25 MG CAPSULE PO ×2 (07:46→21:34)
[2024-11-18] MEDS: ATORVASTATIN 20 MG TABLET 40 MG PO (07:47)
[2024-11-18] MEDS: DOCUSATE 100 MG CAPSULE PO ×2 (07:47→21:34)
[2024-11-18] MEDS: INSULIN LISPRO 100 UNIT/ML 3ML VIAL SUBCUT ×6 (07:48→21:32)
[2024-11-18] MEDS: SODIUM CHLORIDE 0.9% FLUSH 10 ML IV ×2 (07:48→21:35)
[2024-11-18 08:00] VITALS: BP 152/70; PULSE 98; RESP 18; TEMP 36.4; O2SAT 97
--- NOTE | 2024-11-18 09:40 | PT.IPTN ---
Current Diagnoses Carpal tunnel syndrome, right upper limb (11/15/24) Unspecified otitis externa, right ear (11/15/24) Disorder of teeth and supporting structures, unspecified (11/15/24) Unilateral primary osteoarthritis, right hip (11/15/24) Fracture of unspecified part of neck of right femur, initial encounter for closed fracture (11/15/24) Presence of unspecified artificial hip joint (11/15/24) Other specified postprocedural states (11/15/24) Surgery Performed Operation Date: 11/15/24 10:00 Actual Procedures p Total Hip Arthroplasty(Right) - Bethanie Corona MD Physical Therapy Treatment Note M3 PT-IP Subjective Start: 11/15/24 08:37 Freq: NEEDED Status: Active Protocol: Document 11/18/24 10:02 TS (Rec: 11/18/24 10:08 TS [id number]) Subjective Physical Therapy Visit Type Type Treatment Note Visit Start Time 09:40 Visit Stop Time 10:00 Number of [employer]PER Visits 1 Physical Therapy Visit Comments Patient Comments Pt found resting in the chair, she is agreeable to PT. Therapy Pain Assessment Pain When Pain Assessed At Rest Pain Present Pain Present Pain Reported M4 PT-IP Mobility and Gait Start: 11/15/24 08:37 Freq: NEEDED Status: Active Protocol: Document 11/18/24 10:02 TS (Rec: 11/18/24 10:08 TS [id number]) PT-Transfer Assessment Sit to and From Stand Sit to and from Stand Minimal Assistance,1 Person Assistance,Use of Upper Extremities Equipment Transfer Assistive Device Gait Belt,Front Wheeled Walker Orthotic/Prosthetic Devices or Brace: No Comments Mobility Comments STS from the chair Kamari for balance. She ambulates ~60' in the room with a step to gait. Pt attempts steps on step stool with BUE support on sink and [employer] SPECIALIST, pt unable to tolerate increased wbering on RLE, did not complete any stairs. Pt was left back in the chair, all needs met. Gait Assessment Gait Gait Assistance Required: Contact Guard Assist Distance (Feet) 60 Able to Maintain Weight Bearing Status Yes During Gait Assistive Devices Assistive Device Gait Belt,Front Wheeled Walker Gait Deviations General Gait Pattern Antalgic,Decreased Stride Length,Decreased Feet Clearance Factors Limiting Gait Function Factors Limiting Gait Function Decreased Activity Tolerance, Decreased Strength,Limited Range of Motion,Pain,Poor Balance,Poor Safety Awareness Stair Climbing Assessment Comments Stair Climbing Comments See mobility comments PT-Balance Assessment Sitting Balance and Reactions Static Sitting Balance Ability Normal Dynamic Sitting Balance Ability Good Standing Balance and Reactions Static Standing Balance Ability Good Dynamic Standing Balance Ability Fair Device Used FWW M5 PT-IP Objective Assessments Start: 11/15/24 08:37 Freq: NEEDED Status: Active Protocol: Document 11/16/24 14:05 MB (Rec: 11/16/24 14:34 MB [id number]) Orientation Orientation/Cognition Level of Alertness Alert Orientation Name,Age,Birthday,Month,Date, Year,Day of Week,Place, Situation Language Function Ability No Deficits Noted Safety Awareness Decreased Safety Awareness Memory Description No Deficits Noted Gross Range of Motion Upper Extremity ROM Impairments Defer to OT Lower Extremity ROM Assessment Bilaterally Impaired Strength Lower Extremity Strength Assessment Bilaterally Impaired Ankle 4/5 B ankle DF and great toe extension Comments Strength Comments Pt's right foot is IR/inverted at baseline and she reports limited B hip movement from right hip issues and previous left hip placement that did not recover well and she did not get PT after it, she does not tolerate full range and strength ROM Coordination Assessment Gross Coordination Gross Coordination Impaired Sensation Assessment Sensation Gross Sensation WNL Muscle Tone Muscle Tone WNL Yes Comments Muscle Tone Comments Increased tension in B PFs M6 PT-IP Treatment Start: 11/15/24 08:37 Freq: NEEDED Status: Active Protocol: Document 11/18/24 10:02 TS (Rec: 11/18/24 10:08 TS [id number]) Physical Therapy Treatment Education Education Provided Precautions,Safety M7 PT-IP Assessment and Plan Start: 11/15/24 08:37 Freq: NEEDED Status: Active Protocol: Document 11/18/24 10:02 TS (Rec: 11/18/24 10:08 TS [id number]) PT Summary Assessment and Plan Potential Rehabilitation Potential Good Summary Impairments Pain,ROM,Strength,Balance, Coordination,Sensation,Tone, Cognition,Bed Mobility, Transfers,Gait,Activity Tolerance Progress Towards Goals Slow Progress due to Activity Tolerance,Slow Progress - Other Assessment Summary Pt is making slow progress at this time. She continues to ambulate short distances in the room. She attempted stairs this session but was unable to increase wbering on RLE to complete any steps. PT will continue to recommend SNF vs Acute at this time. Goals Bed Mobility Goal Independent Transfer Goal Independent,Front Wheeled Walker Gait Goal Independent,Front Wheel Walker Gait Distance 75 Other Goals Pt will ascend and descend 1 step and then 3 steps with LRAD and no more than CgA to allow safe home entrance and entrance into BR at home. Days to Meet Goals 5 Frequency of Treatment Frequency Of Treatment Once a Day Other frequency 1-2x/day Treatment Plan Physical Therapy Treatment Plan Bed Mobility Training,Transfer Training,Gait Training, Therapeutic Exercise,Balance Retraining,Post Op Education, Discharge Planning,Hot or Cold Pack,Neuromuscular Re-ed, Coordination Retraining,Manual Therapy Precautions Posterior Hip Precautions No Hip Flexion > 90 degrees,No Hip Internal Rotation,No Hip Adduction Other Precautions No hip abduction strengthening on op report Weight Bearing Status Weight Bearing Status Weight Bear as Tolerated Allowed Weight Bearing Amount (enter % RLE WBAT or #) (%) Recommendations To Nursing Amount of Assist Needed 1 Person Assist Discharge Recommendations PT Discharge Recommendations SNF vs Acute Rehab Transportation Needs at Discharge Private Vehicle
--- NOTE | 2024-11-18 09:47 | PM.PNPO.1 ---
Subjective Subjective Date Patient Seen: 11/18/24 Time Patient Seen: 09:48 Interval history: Patient was found sitting in a chair working with physical therapy. States pain is under control with oral medications. She does state she is concerned about her sugar levels. She also complains of right knee pain when ambulating. He has not sure if this is due to the fall or due pre-existing fibromyalgia. Denies any fevers chills nausea or vomiting. Denies any shortness of breath or numbness or tingling down the lower extremities. Exam Vital Signs (past 8 hours): - 11/18/24 04:00 Temperature 98.3 F Pulse Rate 90 Respiratory Rate 20 Blood Pressure 135/50 L Pulse Oximetry 100 Oxygen Flow Rate 0 Fraction of Inspired Oxygen 24 SaO2/FiO2 Ratio 404 Oxygen Delivery Method Nasal Cannula Oxygen Flow Rate 0 Narrative Exam Narrative: Isaiah dressing clean dry and intact. VAC is functioning. SCDs are on bilaterally. Examination of the right knee shows no signs of ecchymosis or effusion. Nurse to palpation along the lateral meniscal compartment. No increased laxity with valgus or varus stressing. Range of motion 0-100 degrees with pain along the medial and lateral meniscus border. Unable to appreciate any instability with Cesario maneuver or Kemar's sign. 5/5 strength in hip flexors, quadriceps, hamstrings, DF, PF, EHL bilaterally. Sensation to light touch intact throughout BLE. Calves soft, compressible, nontender. Const General: cooperative and healthy appearing Resp Effort & Inspection: normal respiratory effort and able to speak in complete sentences Objective Labs 11/18/24 05:30 11/18/24 05:30 Labs: Laboratory Results - last 24 hr 11/18/24 05:30 WBC 4.9 RBC 2.92 L Hgb 8.5 L Hct 25.3 L MCV 86.8 MCH 29.1 MCHC 33.6 RDW 12.2 Plt Count 227 Neut % (Auto) 63.1 Lymph % (Auto) 25.0 Rice % (Auto) 9.0 Eos % (Auto) 2.3 Baso % (Auto) 0.6 Neut # (Auto) 3100 Lymph # (Auto) 1200 Rice # (Auto) 400 Eos # (Auto) 100 Baso # (Auto) 0 Sodium 137 Potassium 3.9 Chloride 103 Carbon Dioxide 31 BUN 19 H Creatinine 0.79 Estimated GFR > 60 BUN/Creatinine Ratio 24.1 H Glucose 207 H Calcium 8.6 Magnesium 2.0 Total Bilirubin 0.4 AST 22 ALT 12 Alkaline Phosphatase 57 Total Protein 5.7 L Albumin 3.2 L Globulin 2.5 Albumin/Globulin Ratio 1.3 [facility] Surgical History S/P ACL reconstruction Social History household members: spouse lives independently: Yes caregiver/support person: Yes Smoking Status: Never smoker alcohol intake: never Assessment & Plan Post-op Postoperative Procedures: Procedures Operation Date: 11/15/24 10:00 Actual Procedure Side Surgeon p Total Hip Arthroplasty Right Bethanie Corona MD Postoperative day: 3 Postoperative status: doing well Postoperative plan: routine post-op care and ambulate Postoperative plan narrative: Notified Hospitalist about elevated glucose: 207. Hemoglobin 8.5, hematocrit 25.3. Trending downward. Continue to monitor to see if patient requires IV fluids versus transfusion. 1) S/P total hip arthroplasty: Weightbearing as tolerated to right leg. Posterior hip precautions. *No hip abductor strengthening exercises Continue ASA 81mg BID x 6 weeks for VTE prophylaxis. She'll likely need SNF rehab due to other possible injuries (as below) and living situation. Follow up w/ [facility] in 2 weeks for wound check and repeat imaging of hip. (2) S/P ACL reconstruction: X-ray of right knee to r/o acute bony injury. Independent review of x-rays demonstrates no signs of acute fractures or dislocations. ACL tunnel was present. Notable arthritic changes present. If patient demonstrates instability of the right knee, she can be placed into a knee immobilizer for stability while walking and pursue outpatient follow up w/ her regular orthopedist for evaluation of her ACL and other graft/repair. (3) Carpal tunnel syndrome of right wrist: Continue bracing as needed. Time Spent With Patient Time with patient: 15-24 minutes Quality VTE Deep Vein Thrombosis/Pulmonary Embolism Present on Admission: No
--- NOTE | 2024-11-18 09:58 | DI.RAD.S_ITS ---
PROCEDURE: XR KNEE RT 3V INDICATIONS: R/o bony injury. TECHNIQUE: 3 views of the knee were acquired. COMPARISON: None. FINDINGS: Bones: No fractures or dislocations. No suspicious bony lesions. Generalized decreased osseous mineralization noted. ACL tunnel noted from prior repair. Joint spaces are preserved Soft tissues: No joint effusion. No suspicious soft tissue calcifications. IMPRESSION: No acute bony abnormality or significant effusion. Osteopenia Approved by: Jj Jiménez M.D. on 11/18/2024 at 12:17
--- NOTE | 2024-11-18 13:30 | OT.IP.TRT ---
Current Diagnoses Carpal tunnel syndrome, right upper limb (11/15/24) Unspecified otitis externa, right ear (11/15/24) Disorder of teeth and supporting structures, unspecified (11/15/24) Unilateral primary osteoarthritis, right hip (11/15/24) Fracture of unspecified part of neck of right femur, initial encounter for closed fracture (11/15/24) Presence of unspecified artificial hip joint (11/15/24) Other specified postprocedural states (11/15/24) Surgery Performed Operation Date: 11/15/24 10:00 Actual Procedures p Total Hip Arthroplasty(Right) - Bethanie Corona MD Occupational Therapy Treatment Note M2 OT-IP Current Condition Start: 11/16/24 10:41 Freq: Status: Active Protocol: Document 11/16/24 10:41 [facility] (Rec: 11/16/24 11:08 [facility] [id number]) Occupational Therapy Current Condition Current Condition Evaluation Date 11/16/24 Treatment Diagnosis fall with R hip fx s/p posterior MARLENE 11/15/24 Diagnosis Onset Date 11/15/24 Post Operative Precautions Posterior Hip Precautions No Hip Flexion > 90 degrees,No Hip Internal Rotation,No Hip Adduction Weight Bearing Status Weight Bearing Status Weight Bear as Tolerated M3 OT- IP Subjective and Pain Start: 11/16/24 10:41 Freq: Status: Active Protocol: Document 11/18/24 15:58 [facility] (Rec: 11/18/24 16:05 [facility] [id number]) OT- Subjective Occupational Therapy Visit Type Type Treatment Note Visit Start Time 15:20 Visit Stop Time 15:53 Occupational Therapy Visit Comments Patient Comments Pt agreed to get up. Patient/Caregiver Goals To go to skilled rehab. OT Pain Assessment Pain When Pain Assessed At Rest Pain Present Pain Present Pain Reported Location right hip Intensity 3 Scale Used Numeric (0 - 10) M4 OT- IP ADL's Start: 11/16/24 10:41 Freq: Status: Active Protocol: Document 11/18/24 15:58 [facility] (Rec: 11/18/24 16:05 [facility] [id number]) OT [id number] Comments OT Self-Feeding Comments Not at meal time. OT ADL-Grooming Comments OT Grooming Comments Pt did already. OT ADL-Oral Care Comments Oral Care Comments Pt did prior. OT ADL-Dressing General Eval Lower Body Dressing Ability Maximum Assistance Areas Needing Assistance Shoes Comments OT Dressing Comments Pt needing assist to slip in her feet to her side zip boots , Pt feet swollen R >L. OT ADL-Bathing Comments OT Bathing Comments Pt did a sponge bath earlier to try a shower tomorrow. M5 OT- IP IADL's Start: 11/16/24 10:41 Freq: Status: Active Protocol: Document 11/16/24 10:41 [facility] (Rec: 11/16/24 11:08 [facility] [id number]) OT-Instrumental Activities of Daily Living Deficits IADL Deficits Identified No Deficits Home Safety Awareness Awareness of Need for Assistance at Home Good Awareness Ability to Problem Solve Emergency Able to Problem Solve Situations Medication Management Medication Management No Deficits Identified Money Management Money Management No Deficits Identified Meal Preparation Meal Preparation Comments Concerns regarding pt's ability to perform currently. Service Tech Service Tech Comments Concerns regarding pt's ability to perform currently. Driving Driving Concerns Identified Regarding Safety M6 OT- IP Functional Cognition Start: 11/16/24 10:41 Freq: Status: Active Protocol: Document 11/18/24 15:58 [facility] (Rec: 11/18/24 16:05 [facility] [id number]) Cognitive Factors Limiting Selfcare Function Cognitive Ability Ability to Follow Commands Able to Follow Multi-Step Commands Safety Awareness No Deficits Noted Cognitive Comments Cognitive Assessment Comments Pt able to recall all her precautions and able to incorporate for mobility needs today. M7 OT- IP Mobility and Balance Start: 11/16/24 10:41 Freq: Status: Active Protocol: Document 11/18/24 15:58 [facility] (Rec: 11/18/24 16:05 [facility] [id number]) OT-Transfer Assessment Sit to and From Stand Sit to and from Stand Minimal Assistance Transfers Transfer Ability Standby Assistance,Contact Guard Assistance Technique Transfer Destination Chair Transfer Technique Stand Step Pivot Devices Transfer Assistive Devices Gait Belt,Front Wheeled Walker Comments Mobility Comments Pt continues to need heavy use of her arms to come to stand. SILVESTRE for assist and once on her feet CGA to SBA with FWW. OT- Balance Assessment Sitting Balance and Reactions Static Sitting Balance Ability Normal Dynamic Sitting Balance Ability Good Standing Balance and Reactions Static Standing Balance Ability Good Dynamic Standing Balance Ability Fair M8 OT- IP Objective Assessments Start: 11/16/24 10:41 Freq: Status: Active Protocol: Document 11/16/24 10:41 [facility] (Rec: 11/16/24 11:08 [facility] [id number]) OT Gross Range of Motion Upper Extremity Range of Motion Assessment Left Impaired ROM Impairments L shld impairment, pt states she thinks she tore something in the recent past. Pt states that B shlds hurt with internal rotation and states that she typically stand to wipe from the back and it is painful. OT Strength Upper Extremity Strength Assessment Within Functional Limits Comments Strength Comments for arms and hands 4/5 OT- Coordination Assessment Upper Extremity Finger to Nose Test Within Functional Limits Finger Tapping Test Within Functional Limits Comments Coordination Comments no significant deficits. OT-Muscle Tone Assessment Muscle Tone WNL Yes OT Sensation Assessment Edema Edema Present Edema Comments general minimal swelling. M9 OT- IP Assessment and Plan Start: 11/16/24 10:41 Freq: Status: Active Protocol: Document 11/18/24 15:58 [facility] (Rec: 11/18/24 16:05 [facility] [id number]) OT Summary Assessment and Plan Potential Rehabilitation Potential Good Analytic Complexity at Evaluation Moderate Summary OT Impairments Pain,Range of Motion,Strength, Balance,Functional Mobility, Grooming,Dressing,Toileting, Bathing,Toilet Transfers, Shower Transfers,Activity Tolerance Progress Towards Goals Progressing Toward Goals Assessment Summary Pt able to walk into the hallway with her shoes on. Pt is aware that she will need assist for her shoes at home and best to get slip on shoes, however per pt will not be able to get new shoes until new year. Pt looking to go to skilled rehab when medically stable. Pt is very pleasant and motivated to get better. Notified nursing as pt's itching at bandage site. Goals Grooming Goal Independent Dressing Goal Independent Toileting Goal Independent Bathing Goal Independent Toilet Transfer Goal Independent Shower Transfer Goal Independent Patient/Caregiver Education Goal Demonstrate Post-Op Precautions Days to Meet Goals 15 Frequency of Treatment Other frequency 5x per week Treatment Plan OT Treatment Plan ADL Training,Functional Mobility,Therapeutic Exercises ,Patient/Family Education, Discharge Planning Other Treatment Recommendations and Next Shower Treatment Focus Discharge Recommendations OT Discharge Recommendations SNF Rehab Transportation Needs at Discharge Wheelchair/Cabulance
--- NOTE | 2024-11-18 15:06 | CM.DPNOTE ---
DCP Cont Clinical team continues to recommend SNF vs acute inpatient rehab. Katelynn at [facility] has declined. Referred to [facility] Lin DELEON reviewing and on the phone throughout the day today with Cathy Garcia attempting pre auth. Following closely for coordination. KHRIS
[2024-11-18] MEDS: hydrOXYzine HCL 25 MG TABLET PO (15:36)
--- NOTE | 2024-11-18 15:43 | PC.NURSE ---
Discharge: Pt feels ready to d/c to home. Given last dose of antibiotics, sl delayed as pt was in the shower for a long time. Dr. Canales here and gave pt d/c instructions. Pt is aware he needs to start his antibiotics tonight. Dischage packet was reviewed w/pt by Joseph GAMINO. When this designer writer came to remove IV he reports no further questions or concerns. Pt walked out on own poser.
[2024-11-18 16:00] VITALS: BP 110/51; PULSE 90; RESP 18; TEMP 35.6; O2SAT 98
--- NOTE | 2024-11-18 16:55 | PM.PN.1 ---
Subjective Subjective Interval history: 59 F with chronic pain, DM admitted yesterday s/p ORIF on 11/15. Doing much better today, glucose was high yesterday, insulin therapy adjusted today, lantus increased for tonight. Exam Vital Signs (past 8 hours): Fraction of Inspired Oxygen 24 SaO2/FiO2 Ratio 404 Oxygen Delivery Method Room Air Oxygen Flow Rate 0 Narrative Exam Narrative: NAD, alert and oriented, fluent speech, calm. Sitting upright in chair. CV: RRR no m/r/g Pulm: CTA b/l Objective Labs 11/18/24 05:30 11/18/24 05:30 Labs: Laboratory Results - last 24 hr 11/18/24 05:30 WBC 4.9 RBC 2.92 L Hgb 8.5 L Hct 25.3 L MCV 86.8 MCH 29.1 MCHC 33.6 RDW 12.2 Plt Count 227 Neut % (Auto) 63.1 Lymph % (Auto) 25.0 [place] % (Auto) 9.0 Eos % (Auto) 2.3 Baso % (Auto) 0.6 Neut # (Auto) 3100 Lymph # (Auto) 1200 [place] # (Auto) 400 Eos # (Auto) 100 Baso # (Auto) 0 Sodium 137 Potassium 3.9 Chloride 103 Carbon Dioxide 31 BUN 19 H Creatinine 0.79 Estimated GFR > 60 BUN/Creatinine Ratio 24.1 H Glucose 207 H Calcium 8.6 Magnesium 2.0 Total Bilirubin 0.4 AST 22 ALT 12 Alkaline Phosphatase 57 Total Protein 5.7 L Albumin 3.2 L Globulin 2.5 Albumin/Globulin Ratio 1.3 PFSH Surgical History S/P ACL reconstruction Social History household members: spouse lives independently: Yes caregiver/support person: Yes Smoking Status: Never smoker alcohol intake: never Assessment & Plan Assessment & Plan narrative: 1. Right hip fracture from ground level fall. - s/p R MARLENE on 11/15. - improved pain control, no changes today - continue PT/OT, likely SNF, awaiting auth from [facility] 2. Otitis externa. Continue topical antibiotics. 3. IDDM. - continue lantus with sliding scale insulin. - increased lantus to 20 U 11/18, added meal time for elevated glucose during the day predominantly but still 207 this morning. 4. HTN. Monitor BP and resume home medications accordingly. 5. Dental cavities. Will need to follow up as outpatient for teeth extraction. PLAN: -S/P MARLENE, doing well today -DVT prophylaxis per Orthopedics preference, ASA BID. - continue PT/OT, likely needs SNF but difficult placement at this time. Appreciate case management evaluations. -topical antibiotics for otitis externa. Patient will require at least 2 midnights of hospital care, this supports inpatient status. DVT PPx ASA BID Code status full code Disposition: possible SNF if able to find accepting facility, possible discharge home. Time-Based Coding :: [TOTAL MINUTES] spent with patient and on the chart (including review of chart, obtaining history, exam, reviewing outside data, placing orders, documenting exam and treatment plan, and counseling patient) on [DATE]. Quality VTE Deep Vein Thrombosis/Pulmonary Embolism Present on Admission: No
[2024-11-18] MEDS: OXYCODONE IR 5 MG TABLET PO (17:18)
[2024-11-18 20:00] VITALS: BP 132/55; PULSE 97; RESP 18; TEMP 36; O2SAT 97
[2024-11-18] MEDS: INSULIN GLARGINE 100 UNIT/ML 3ML PEN 20 UNIT SUBCUT (21:32)
[2024-11-19] VITALS (7 sets, daily range): BP systolic 117–165; BP diastolic 57–78; PULSE 59–97; RESP 14–20; TEMP 35.7–36.8; O2SAT 93–100
[2024-11-19] MEDS: ACETAMINOPHEN 325 MG TABLET 650 MG PO ×4 (04:33→22:58)
[2024-11-19] MEDS: OXYCODONE IR 5 MG TABLET PO ×2 (04:33→14:56)
[2024-11-19 06:00] LABS: Add Manual Diff / Slide Review NO; Basophils Absolute Auto 0 /uL (0-100); Basophils Percent Auto 0.9 % (0-2); Eosinophils Absolute Auto 100 /uL (0-450); Eosinophils Percent Auto 3.1 % (2-4); Hematocrit 25.1 % (36-46); Hemoglobin 8.7 g/dL (12.0-16.0); Lymphocytes Absolute Auto 1200 /uL (1100-4500); Lymphocytes Percent Auto 26.3 % (25-40); Mean Corpuscular HGB Conc 34.5 % (30-36); Mean Corpuscular Hemoglobin 29.9 PG (26-34); Mean Corpuscular Volume 86.6 fL (80-100); Monocytes Absolute Auto 300 /uL (0-900); Monocytes Percent Auto 7.5 % (3-14); Neutrophils Absolute Auto 2700 /uL (1500-7000); Neutrophils Percent Auto 62.2 % (50-75); Platelet Count 282 X10^3/uL (150-400); White Blood Cell Count 4.4 X10^3/uL (4.5-11.0)
[2024-11-19 06:15] LABS: Alanine Aminotransferase 15 IU/L (<35); Albumin 3.2 g/dL (3.5-5.0); Albumin Globulin Ratio 1.2 (1.0-2.8); Alkaline Phosphatase 59 U/L (38-126); Aspartate Aminotransferase 25 IU/L (14-36); BUN Creatinine Ratio 29.5 (6-22); Bilirubin Total 0.4 mg/dL (0.2-1.3); Blood Urea Nitrogen 23 mg/dL (7-17); Calcium 8.8 mg/dL (8.4-10.2); Carbon Dioxide 31 mmol/L (22-32); Chloride 104 mmol/L (98-107); Estimated Glomerular Filt Rate > 60 mL/min (>60); Globulin 2.7 g/dL (1.7-4.1); Glucose 177 mg/dL (80-110); HEMOLYSIS < 15 (0-50); Potassium 3.7 mmol/L (3.4-5.1); Sodium 138 mmol/L (137-145); Total Protein 5.9 g/dL (6.3-8.2)
[2024-11-19 06:17] LABS: Magnesium 1.9 mg/dL (1.6-2.3)
--- NOTE | 2024-11-19 08:03 | PM.PNPO.1 ---
Subjective Subjective Date Patient Seen: 11/19/24 Time Patient Seen: 08:03 Interval history: Indigo is sleepy, easily arousable. Feels things went well w/ PT yesterday. Knee pain subsiding, reassured her regarding xray findings. Per CM notes, working on auth for SNF placement. Exam Vital Signs (past 8 hours): - 11/19/24 01:12 11/19/24 04:37 Temperature 98.3 F 97.4 F L Pulse Rate 90 89 Respiratory Rate 18 18 Blood Pressure 125/57 L 139/62 Pulse Oximetry 95 96 Oxygen Flow Rate 0 0 Fraction of Inspired Oxygen 24 SaO2/FiO2 Ratio 404 Oxygen Delivery Method Room Air Oxygen Flow Rate 0 Narrative Exam Narrative: 4/5 hip flexors, quadriceps, hamstrings; 5/5 PF, DF, EHL on right. Sensation to light touch intact throughout RLE. Calf soft and compressible. HANNAH dressing functioning, CDI. Objective Labs 11/19/24 05:30 11/19/24 05:30 Labs: Laboratory Results - last 24 hr 11/19/24 05:30 WBC 4.4 L RBC 2.90 L Hgb 8.7 L Hct 25.1 L MCV 86.6 MCH 29.9 MCHC 34.5 RDW 12.0 Plt Count 282 Neut % (Auto) 62.2 Lymph % (Auto) 26.3 [place] % (Auto) 7.5 Eos % (Auto) 3.1 Baso % (Auto) 0.9 Neut # (Auto) 2700 Lymph # (Auto) 1200 [place] # (Auto) 300 Eos # (Auto) 100 Baso # (Auto) 0 Sodium 138 Potassium 3.7 Chloride 104 Carbon Dioxide 31 BUN 23 H Creatinine 0.78 Estimated GFR > 60 BUN/Creatinine Ratio 29.5 H Glucose 177 H Calcium 8.8 Magnesium 1.9 Total Bilirubin 0.4 AST 25 ALT 15 Alkaline Phosphatase 59 Total Protein 5.9 L Albumin 3.2 L Globulin 2.7 Albumin/Globulin Ratio 1.2 PFSH Surgical History S/P ACL reconstruction Social History household members: spouse lives independently: Yes caregiver/support person: Yes Smoking Status: Never smoker alcohol intake: never Assessment & Plan Post-op Assessment and plan (1) S/P total hip arthroplasty: Assessment and Plan narrative: Weightbearing as tolerated to right leg. Posterior hip precautions. No hip abductor strengthening exercises Continue ASA 81mg BID x 6 weeks for VTE prophylaxis. Follow up w/ [facility] in 2 weeks for wound check and repeat imaging of hip. Disposition and pain management per hospitalist service (2) S/P ACL reconstruction: Assessment and Plan narrative: If needed, she can be placed into a knee immobilizer for stability while walking and pursue outpatient follow up w/ her regular orthopedist for evaluation of her ACL and other graft/repair. (3) Carpal tunnel syndrome of right wrist: Assessment and Plan narrative: Continue bracing as needed. Postoperative Procedures: Procedures Operation Date: 11/15/24 10:00 Actual Procedure Side Surgeon p Total Hip Arthroplasty Right Bethanie Corona MD Postoperative day: 4 Quality VTE Deep Vein Thrombosis/Pulmonary Embolism Present on Admission: No
[2024-11-19] MEDS: FLUTICASONE 120 SPRAY/16 GM SPRAY.SUSP NASAL (08:10)
[2024-11-19] MEDS: NEOMY/POLYM B/HC OTIC 10 ML 4 DROPS EAR-BOTH ×3 (08:10→22:00)
[2024-11-19] MEDS: polyethylene glycoL 3350 17 GM POWD.PACK PO (08:10)
[2024-11-19] MEDS: INSULIN LISPRO 100 UNIT/ML 3ML VIAL SUBCUT ×6 (08:11→17:05)
[2024-11-19] MEDS: GABAPENTIN 300 MG CAPSULE PO ×3 (08:13→21:58)
[2024-11-19] MEDS: hydroCHLOROthiazide 25 MG TABLET 12.5 MG PO (08:13)
[2024-11-19] MEDS: ATORVASTATIN 20 MG TABLET 40 MG PO (08:13)
[2024-11-19] MEDS: DOCUSATE 100 MG CAPSULE PO ×2 (08:13→21:58)
[2024-11-19] MEDS: NORTRIPTYLINE HCL 25 MG CAPSULE PO ×2 (08:13→21:58)
[2024-11-19] MEDS: FUROSEMIDE 40 MG TABLET PO (08:13)
[2024-11-19] MEDS: CHOLECALCIFEROL (VITAMIN D3) 5,000 UNIT TABLET 10000 UNIT PO (08:13)
[2024-11-19] MEDS: ASPIRIN EC 81 MG TABLET PO ×2 (08:14→21:58)
[2024-11-19] MEDS: SODIUM CHLORIDE 0.9% FLUSH 10 ML IV ×2 (08:18→22:01)
--- NOTE | 2024-11-19 10:05 | PT.IPTN ---
Current Diagnoses Carpal tunnel syndrome, right upper limb (11/15/24) Unspecified otitis externa, right ear (11/15/24) Disorder of teeth and supporting structures, unspecified (11/15/24) Unilateral primary osteoarthritis, right hip (11/15/24) Fracture of unspecified part of neck of right femur, initial encounter for closed fracture (11/15/24) Presence of unspecified artificial hip joint (11/15/24) Other specified postprocedural states (11/15/24) Surgery Performed Operation Date: 11/15/24 10:00 Actual Procedures p Total Hip Arthroplasty(Right) - Bethanie Corona MD Physical Therapy Treatment Note M3 PT-IP Subjective Start: 11/15/24 08:37 Freq: NEEDED Status: Active Protocol: Document 11/19/24 10:24 TS (Rec: 11/19/24 10:29 TS [id number]) Subjective Physical Therapy Visit Type Type Treatment Note Visit Start Time 10:05 Visit Stop Time 10:23 Number of INDUSTRIAL WELDER Visits 2 Physical Therapy Visit Comments Patient Comments Pt found resting in the chair, she is agreeable to PT. Therapy Pain Assessment Pain When Pain Assessed At Rest Pain Present Pain Present Pain Reported M4 PT-IP Mobility and Gait Start: 11/15/24 08:37 Freq: NEEDED Status: Active Protocol: Document 11/19/24 10:24 TS (Rec: 11/19/24 10:29 TS [id number]) PT-Transfer Assessment Sit to and From Stand Sit to and from Stand Contact Guard Assistance Equipment Transfer Assistive Device Gait Belt,Front Wheeled Walker Orthotic/Prosthetic Devices or Brace: No Comments Mobility Comments STS with FWW CGA. Pt ambulates ~60'SBA with FWW and a step to gait. She performs step x1 with FWW CGA. She attempts step with single rail and is unable to perform. Pt has no rails and 1 step to enter her house. Gait Assessment Gait Gait Assistance Required: Standby Assistance Distance (Feet) 60 Able to Maintain Weight Bearing Status Yes During Gait Assistive Devices Assistive Device Gait Belt,Front Wheeled Walker Gait Deviations General Gait Pattern Antalgic,Decreased Stride Length,Decreased Feet Clearance Factors Limiting Gait Function Factors Limiting Gait Function Decreased Activity Tolerance, Decreased Strength,Limited Range of Motion,Pain,Poor Balance,Poor Safety Awareness Stair Climbing Assessment Evaluation Level of Assist On Stairs Contact Guard Assistance Devices Stair Climbing Assistive Devices Front Wheel Walker Technique/Endurance Stair Climbing Direction Ascend and Descend Stair Climbing Technique Step to Step Number of Steps Climbed 1 Comments Stair Climbing Comments See mobility comments PT-Balance Assessment Sitting Balance and Reactions Static Sitting Balance Ability Normal Dynamic Sitting Balance Ability Good Standing Balance and Reactions Static Standing Balance Ability Good Dynamic Standing Balance Ability Fair Device Used FWW M5 PT-IP Objective Assessments Start: 11/15/24 08:37 Freq: NEEDED Status: Active Protocol: Document 11/16/24 14:05 MB (Rec: 11/16/24 14:34 MB [id number]) Orientation Orientation/Cognition Level of Alertness Alert Orientation Name,Age,Birthday,Month,Date, Year,Day of Week,Place, Situation Language Function Ability No Deficits Noted Safety Awareness Decreased Safety Awareness Memory Description No Deficits Noted Gross Range of Motion Upper Extremity ROM Impairments Defer to OT Lower Extremity ROM Assessment Bilaterally Impaired Strength Lower Extremity Strength Assessment Bilaterally Impaired Ankle 4/5 B ankle DF and great toe extension Comments Strength Comments Pt's right foot is IR/inverted at baseline and she reports limited B hip movement from right hip issues and previous left hip placement that did not recover well and she did not get PT after it, she does not tolerate full range and strength ROM Coordination Assessment Gross Coordination Gross Coordination Impaired Sensation Assessment Sensation Gross Sensation WNL Muscle Tone Muscle Tone WNL Yes Comments Muscle Tone Comments Increased tension in B PFs M6 PT-IP Treatment Start: 11/15/24 08:37 Freq: NEEDED Status: Active Protocol: Document 11/19/24 10:24 TS (Rec: 11/19/24 10:29 [id number]) Physical Therapy Treatment Education Education Provided Precautions,Safety M7 PT-IP Assessment and Plan Start: 11/15/24 08:37 Freq: NEEDED Status: Active Protocol: Document 11/19/24 10:24 TS (Rec: 11/19/24 10:29 TS [id number]) PT Summary Assessment and Plan Potential Rehabilitation Potential Good Summary Impairments Pain,ROM,Strength,Balance, Coordination,Sensation,Tone, Cognition,Bed Mobility, Transfers,Gait,Activity Tolerance Progress Towards Goals Slow Progress due to Activity Tolerance,Slow Progress - Other Assessment Summary Pt continues to ambulate ~60' SBA with FWW. She performs step x1 with use of FWW. She is unable to perform step with single rail. Pt has no rails and 1 step to enter her home. PT recommends SNF rehab at this time. Goals Bed Mobility Goal Independent Transfer Goal Independent,Front Wheeled Walker Gait Goal Independent,Front Wheel Walker Gait Distance 75 Other Goals Pt will ascend and descend 1 step and then 3 steps with LRAD and no more than CgA to allow safe home entrance and entrance into BR at home. Days to Meet Goals 5 Frequency of Treatment Frequency Of Treatment Once a Day Treatment Plan Physical Therapy Treatment Plan Bed Mobility Training,Transfer Training,Gait Training, Therapeutic Exercise,Balance Retraining,Post Op Education, Discharge Planning,Hot or Cold Pack,Neuromuscular Re-ed, Coordination Retraining,Manual Therapy Precautions Posterior Hip Precautions No Hip Flexion > 90 degrees,No Hip Internal Rotation,No Hip Adduction Other Precautions No hip abduction strengthening on op report Weight Bearing Status Weight Bearing Status Weight Bear as Tolerated Allowed Weight Bearing Amount (enter % RLE WBAT or #) (%) Recommendations To Nursing Amount of Assist Needed 1 Person Assist Discharge Recommendations PT Discharge Recommendations SNF Rehab Transportation Needs at Discharge Private Vehicle
[2024-11-19] MEDS: OXYCODONE IR 10 MG TABLET PO ×2 (10:22→21:58)
--- NOTE | 2024-11-19 12:18 | CM.DPNOTE ---
CANDELARIA Ceballos at [facility] accepts patient and is working on the insurance auth through [employer]. Getting updated information from [employer] has been difficult according to Lin. Patient discussed in multidisciplinary rounds. Return home is not a safe, viable option today according to the team. Met w/patient to review above; patient states agreement. Plan: Discharge to [facility] pending INS auth vs Home w/HH depending on progression with therapies. KHRIS
--- NOTE | 2024-11-19 13:34 | PM.PN.1 ---
Subjective Subjective Interval history: 59 F with chronic pain, DM admitted for hip fracture and now s/p ORIF on 11/15. Doing much better today, glucose is much better today after adjustments yesterday. Exam Vital Signs (past 8 hours): - 11/19/24 08:00 11/19/24 12:00 Temperature 97.3 F L 97.0 F L Pulse Rate 87 95 H Respiratory Rate 18 16 Blood Pressure 127/70 117/70 Pulse Oximetry 98 97 Oxygen Flow Rate 0 Fraction of Inspired Oxygen 24 SaO2/FiO2 Ratio 404 Oxygen Delivery Method Room Air Oxygen Flow Rate 0 Narrative Exam Narrative: NAD, alert and oriented, fluent speech, calm. Sitting upright in chair. CV: RRR no m/r/g Pulm: CTA b/l Objective Labs 11/19/24 05:30 11/19/24 05:30 Labs: Laboratory Results - last 24 hr 11/19/24 05:30 WBC 4.4 L RBC 2.90 L Hgb 8.7 L Hct 25.1 L MCV 86.6 MCH 29.9 MCHC 34.5 RDW 12.0 Plt Count 282 Neut % (Auto) 62.2 Lymph % (Auto) 26.3 [place] % (Auto) 7.5 Eos % (Auto) 3.1 Baso % (Auto) 0.9 Neut # (Auto) 2700 Lymph # (Auto) 1200 [place] # (Auto) 300 Eos # (Auto) 100 Baso # (Auto) 0 Sodium 138 Potassium 3.7 Chloride 104 Carbon Dioxide 31 BUN 23 H Creatinine 0.78 Estimated GFR > 60 BUN/Creatinine Ratio 29.5 H Glucose 177 H Calcium 8.8 Magnesium 1.9 Total Bilirubin 0.4 AST 25 ALT 15 Alkaline Phosphatase 59 Total Protein 5.9 L Albumin 3.2 L Globulin 2.7 Albumin/Globulin Ratio 1.2 PFSH Surgical History S/P ACL reconstruction Social History household members: spouse lives independently: Yes caregiver/support person: Yes Smoking Status: Never smoker alcohol intake: never Assessment & Plan Assessment & Plan narrative: 1. Right hip fracture from ground level fall. - s/p R MARLENE on 11/15. - improved pain control, no changes today - continue PT/OT, likely SNF, awaiting auth 2. Otitis externa. Continue topical antibiotics. 3. IDDM. - continue lantus with sliding scale insulin. - increased lantus to 20 U 11/18, added meal time for elevated glucose during the day with improvement today as sugars are all now <180 today. 4. HTN. Monitor BP and resume home medications accordingly. 5. Dental cavities. Will need to follow up as outpatient for teeth extraction. 6. Acute blood loss anemia secondary to surgical blood loss - h/h stable today, slightly improved at 8.7, patient is asymptomatic. PLAN: -S/P MARLENE, doing well today -DVT prophylaxis per Orthopedics preference, ASA BID. - continue PT/OT, likely needs SNF but difficult placement at this time. Appreciate case management evaluations. -topical antibiotics for otitis externa. Patient will require at least 2 midnights of hospital care, this supports inpatient status. DVT PPx ASA BID Code status full code Disposition: possible SNF if able to find accepting facility, possible discharge home. Time-Based Coding :: [TOTAL MINUTES] spent with patient and on the chart (including review of chart, obtaining history, exam, reviewing outside data, placing orders, documenting exam and treatment plan, and counseling patient) on [DATE]. Quality VTE Deep Vein Thrombosis/Pulmonary Embolism Present on Admission: No
--- NOTE | 2024-11-19 16:45 | OT.IP.TRT ---
Current Diagnoses Carpal tunnel syndrome, right upper limb (11/15/24) Unspecified otitis externa, right ear (11/15/24) Disorder of teeth and supporting structures, unspecified (11/15/24) Unilateral primary osteoarthritis, right hip (11/15/24) Fracture of unspecified part of neck of right femur, initial encounter for closed fracture (11/15/24) Presence of unspecified artificial hip joint (11/15/24) Other specified postprocedural states (11/15/24) Surgery Performed Operation Date: 11/15/24 10:00 Actual Procedures p Total Hip Arthroplasty(Right) - Bethanie Corona MD Occupational Therapy Treatment Note M2 OT-IP Current Condition Start: 11/16/24 10:41 Freq: Status: Active Protocol: Document 11/16/24 10:41 [facility] (Rec: 11/16/24 11:08 CGR [id number]) Occupational Therapy Current Condition Current Condition Evaluation Date 11/16/24 Treatment Diagnosis fall with R hip fx s/p posterior MARLENE 11/15/24 Diagnosis Onset Date 11/15/24 Post Operative Precautions Posterior Hip Precautions No Hip Flexion > 90 degrees,No Hip Internal Rotation,No Hip Adduction Weight Bearing Status Weight Bearing Status Weight Bear as Tolerated M3 OT- IP Subjective and Pain Start: 11/16/24 10:41 Freq: Status: Active Protocol: Document 11/19/24 16:49 [facility] (Rec: 11/19/24 17:10 [facility] [id number]) OT- Subjective Occupational Therapy Visit Type Type Treatment Note Visit Start Time 16:20 Visit Stop Time 16:45 Occupational Therapy Visit Comments Patient Comments Pt agreed to get up to use the bathroom. Patient/Caregiver Goals TO get better and go to skilled rehab. OT Pain Assessment Pain When Pain Assessed During Mobility Pain Present Pain Present Pain Reported Location right hip Pain Behaviors Facial Grimacing M4 OT- IP ADL's Start: 11/16/24 10:41 Freq: Status: Active Protocol: Document 11/19/24 16:49 [facility] (Rec: 11/19/24 17:10 [facility] [id number]) OT [id number] General Evaluation Self-Feeding Ability Independent OT ADL-Grooming General Evaluation Grooming Ability Standby Assistance Comments OT Grooming Comments Pt able to do while standing at the sink. OT ADL-Oral Care General Eval Oral Care Ability Independent OT ADL-Dressing Comments OT Dressing Comments Pt will need assist at home with LB dressing needs. OT ADL-Toileting General Evaluation Toileting Ability Minimal Assistance Comments OT Toileting Comments Pt will need SILVESTRE for completeness and assist for clothing management needs. Pt will benefit from LB dressing equipment. OT ADL-Bathing Comments OT Bathing Comments Pt states plans to shower tomorrow. M5 OT- IP IADL's Start: 11/16/24 10:41 Freq: Status: Active Protocol: Document 11/16/24 10:41 [facility] (Rec: 11/16/24 11:08 [facility] [id number]) OT-Instrumental Activities of Daily Living Deficits IADL Deficits Identified No Deficits Home Safety Awareness Awareness of Need for Assistance at Home Good Awareness Ability to Problem Solve Emergency Able to Problem Solve Situations Medication Management Medication Management No Deficits Identified Money Management Money Management No Deficits Identified Meal Preparation Meal Preparation Comments Concerns regarding pt's ability to perform currently. Security Systems Engineer Security Systems Engineer Comments Concerns regarding pt's ability to perform currently. Driving Driving Concerns Identified Regarding Safety M6 OT- IP Functional Cognition Start: 11/16/24 10:41 Freq: Status: Active Protocol: Document 11/19/24 16:49 [facility] (Rec: 11/19/24 17:10 [facility] [id number]) Cognitive Factors Limiting Selfcare Function Cognitive Comments Cognitive Assessment Comments Pt needing reminder to keep the FWW in front of her at all time. Pt able to recall all her hip precautions. M7 OT- IP Mobility and Balance Start: 11/16/24 10:41 Freq: Status: Active Protocol: Document 11/19/24 16:49 [facility] (Rec: 11/19/24 17:10 [facility] [id number]) OT-Transfer Assessment Sit to and From Stand Sit to and from Stand Moderate Assistance Transfers Transfer Ability Standby Assistance,Contact Guard Assistance Technique Transfer Destination Bedside Commode,Chair,Toilet Transfer Technique Stand Step Pivot Devices Transfer Assistive Devices Gait Belt,Front Wheeled Walker Comments Mobility Comments Pt has a low toilet at home and not able to modify with equipment but possibly a RTS with handles. Pt needing MOD A to stand from a low toilet at this time. Once on her feet close SBa for level surfaces. OT- Balance Assessment Sitting Balance and Reactions Static Sitting Balance Ability Normal Dynamic Sitting Balance Ability Good Standing Balance and Reactions Static Standing Balance Ability Good Dynamic Standing Balance Ability Fair M8 OT- IP Objective Assessments Start: 11/16/24 10:41 Freq: Status: Active Protocol: Document 11/16/24 10:41 [facility] (Rec: 11/16/24 11:08 [facility] [id number]) OT Gross Range of Motion Upper Extremity Range of Motion Assessment Left Impaired ROM Impairments L shld impairment, pt states she thinks she tore something in the recent past. Pt states that B shlds hurt with internal rotation and states that she typically stand to wipe from the back and it is painful. OT Strength Upper Extremity Strength Assessment Within Functional Limits Comments Strength Comments for arms and hands 4/5 OT- Coordination Assessment Upper Extremity Finger to Nose Test Within Functional Limits Finger Tapping Test Within Functional Limits Comments Coordination Comments no significant deficits. OT-Muscle Tone Assessment Muscle Tone WNL Yes OT Sensation Assessment Edema Edema Present Edema Comments general minimal swelling. M9 OT- IP Assessment and Plan Start: 11/16/24 10:41 Freq: Status: Active Protocol: Document 11/19/24 16:49 [facility] (Rec: 11/19/24 17:10 [facility] [id number]) OT Summary Assessment and Plan Potential Rehabilitation Potential Good Analytic Complexity at Evaluation Moderate Summary OT Impairments Pain,Range of Motion,Strength, Balance,Functional Mobility, Dressing,Toileting,Bathing, Toilet Transfers,Shower Transfers,Activity Tolerance Progress Towards Goals Progressing Toward Goals Assessment Summary Pt main barrier is the step to get inside her RV and ability to stand from a lower toilet at home in which her is not able to assist her at this time. Pt will benefit from skilled rehab to help incorporate following her hip precautions for all ADL and mobility needs based on her house environment which is lower surfaces that are able to be modified limited per pt. Pt will greatly benefit from a short skilled rehab stay. Goals Grooming Goal Independent Dressing Goal Independent Toileting Goal Independent Bathing Goal Independent Toilet Transfer Goal Independent Shower Transfer Goal Independent Patient/Caregiver Education Goal Demonstrate Post-Op Precautions Days to Meet Goals 15 Frequency of Treatment Other frequency 5x per week Treatment Plan OT Treatment Plan ADL Training,Functional Mobility,Therapeutic Exercises ,Patient/Family Education, Discharge Planning Other Treatment Recommendations and Next Shower Treatment Focus Discharge Recommendations OT Discharge Recommendations SNF Rehab Transportation Needs at Discharge Wheelchair/Cabulance
--- NOTE | 2024-11-19 16:57 | OT.IP.TRT ---
Current Diagnoses Carpal tunnel syndrome, right upper limb (11/15/24) Unspecified otitis externa, right ear (11/15/24) Disorder of teeth and supporting structures, unspecified (11/15/24) Unilateral primary osteoarthritis, right hip (11/15/24) Fracture of unspecified part of neck of right femur, initial encounter for closed fracture (11/15/24) Presence of unspecified artificial hip joint (11/15/24) Other specified postprocedural states (11/15/24) Surgery Performed Operation Date: 11/15/24 10:00 Actual Procedures p Total Hip Arthroplasty(Right) - Bethanie Corona MD Occupational Therapy Treatment Note M2 OT-IP Current Condition Start: 11/16/24 10:41 Freq: Status: Active Protocol: Document 11/16/24 10:41 [facility] (Rec: 11/16/24 11:08 [facility] [id number]) Occupational Therapy Current Condition Current Condition Evaluation Date 11/16/24 Treatment Diagnosis fall with R hip fx s/p posterior MARLENE 11/15/24 Diagnosis Onset Date 11/15/24 Post Operative Precautions Posterior Hip Precautions No Hip Flexion > 90 degrees,No Hip Internal Rotation,No Hip Adduction Weight Bearing Status Weight Bearing Status Weight Bear as Tolerated M3 OT- IP Subjective and Pain Start: 11/16/24 10:41 Freq: Status: Active Protocol: Document 11/18/24 15:58 [facility] (Rec: 11/18/24 16:05 [facility] [id number]) OT- Subjective Occupational Therapy Visit Type Type Treatment Note Visit Start Time 15:20 Visit Stop Time 15:53 Occupational Therapy Visit Comments Patient Comments Pt agreed to get up. Patient/Caregiver Goals To go to skilled rehab. OT Pain Assessment Pain When Pain Assessed At Rest Pain Present Pain Present Pain Reported Location right hip Intensity 3 Scale Used Numeric (0 - 10) M4 OT- IP ADL's Start: 11/16/24 10:41 Freq: Status: Active Protocol: Document 11/18/24 15:58 [facility] (Rec: 11/18/24 16:05 [facility] [id number]) OT [id number]-Wecynwa Comments OT Self-Feeding Comments Not at meal time. OT ADL-Grooming Comments OT Grooming Comments Pt did already. OT ADL-Oral Care Comments Oral Care Comments Pt did prior. OT ADL-Dressing General Eval Lower Body Dressing Ability Maximum Assistance Areas Needing Assistance Shoes Comments OT Dressing Comments Pt needing assist to slip in her feet to her side zip boots , Pt feet very swollen. OT ADL-Bathing Comments OT Bathing Comments Pt did a sponge bath earlier to try a shower tomorrow. M5 OT- IP IADL's Start: 11/16/24 10:41 Freq: Status: Active Protocol: Document 11/16/24 10:41 [facility] (Rec: 11/16/24 11:08 [facility]GR [id number]) OT-Instrumental Activities of Daily Living Deficits IADL Deficits Identified No Deficits Home Safety Awareness Awareness of Need for Assistance at Home Good Awareness Ability to Problem Solve Emergency Able to Problem Solve Situations Medication Management Medication Management No Deficits Identified Money Management Money Management No Deficits Identified Meal Preparation Meal Preparation Comments Concerns regarding pt's ability to perform currently. Psychological Aide Psychological Aide Comments Concerns regarding pt's ability to perform currently. Driving Driving Concerns Identified Regarding Safety M6 OT- IP Functional Cognition Start: 11/16/24 10:41 Freq: Status: Active Protocol: Document 11/18/24 15:58 [facility] (Rec: 11/18/24 16:05 [facility] [id number]) Cognitive Factors Limiting Selfcare Function Cognitive Ability Ability to Follow Commands Able to Follow Multi-Step Commands Safety Awareness No Deficits Noted Cognitive Comments Cognitive Assessment Comments Pt able to recall all her precautions and able to incorporate for mobility needs today. M7 OT- IP Mobility and Balance Start: 11/16/24 10:41 Freq: Status: Active Protocol: Document 11/18/24 15:58 [facility] (Rec: 11/18/24 16:05 [facility] [id number]) OT-Transfer Assessment Sit to and From Stand Sit to and from Stand Minimal Assistance Transfers Transfer Ability Standby Assistance,Contact Guard Assistance Technique Transfer Destination Chair Transfer Technique Stand Step Pivot Devices Transfer Assistive Devices Gait Belt,Front Wheeled Walker Comments Mobility Comments Pt continues to need heavy use of her arms to come to stand. SILVESTRE for assist and once on her feet CGA to SBA with FWW. OT- Balance Assessment Sitting Balance and Reactions Static Sitting Balance Ability Normal Dynamic Sitting Balance Ability Good Standing Balance and Reactions Static Standing Balance Ability Good Dynamic Standing Balance Ability Fair M8 OT- IP Objective Assessments Start: 11/16/24 10:41 Freq: Status: Active Protocol: Document 11/16/24 10:41 [facility] (Rec: 11/16/24 11:08 [facility]GR [id number]) OT Gross Range of Motion Upper Extremity Range of Motion Assessment Left Impaired ROM Impairments L shld impairment, pt states she thinks she tore something in the recent past. Pt states that B shlds hurt with internal rotation and states that she typically stand to wipe from the back and it is painful. OT Strength Upper Extremity Strength Assessment Within Functional Limits Comments Strength Comments for arms and hands 4/5 OT- Coordination Assessment Upper Extremity Finger to Nose Test Within Functional Limits Finger Tapping Test Within Functional Limits Comments Coordination Comments no significant deficits. OT-Muscle Tone Assessment Muscle Tone WNL Yes OT Sensation Assessment Edema Edema Present Edema Comments general minimal swelling. M9 OT- IP Assessment and Plan Start: 11/16/24 10:41 Freq: Status: Active Protocol: Document 11/18/24 15:58 [facility] (Rec: 11/18/24 16:05 [facility] [id number]) OT Summary Assessment and Plan Potential Rehabilitation Potential Good Analytic Complexity at Evaluation Moderate Summary OT Impairments Pain,Range of Motion,Strength, Balance,Functional Mobility, Grooming,Dressing,Toileting, Bathing,Toilet Transfers, Shower Transfers,Activity Tolerance Progress Towards Goals Progressing Toward Goals Assessment Summary Pt able to walk into the hallway with her shoes on. Pt is aware that she will need assist for her shoes at home and best to get slip on shoes, however per pt will not be able to get new shoes until new year. Pt looking to go to skilled rehab when medically stable. Pt is very pleasant and motivated to get better. Notified nursing as pt's itching at bandage site. Goals Grooming Goal Independent Dressing Goal Independent Toileting Goal Independent Bathing Goal Independent Toilet Transfer Goal Independent Shower Transfer Goal Independent Patient/Caregiver Education Goal Demonstrate Post-Op Precautions Days to Meet Goals 15 Frequency of Treatment Other frequency 5x per week Treatment Plan OT Treatment Plan ADL Training,Functional Mobility,Therapeutic Exercises ,Patient/Family Education, Discharge Planning Other Treatment Recommendations and Next Shower Treatment Focus Discharge Recommendations OT Discharge Recommendations SNF Rehab Transportation Needs at Discharge Wheelchair/Cabulance
[2024-11-19] MEDS: INSULIN GLARGINE 100 UNIT/ML 3ML PEN 20 UNIT SUBCUT (21:58)
[2024-11-20 00:45] VITALS: BP 115/59; PULSE 85; RESP 15; TEMP 35.8; O2SAT 96
[2024-11-20 04:20] VITALS: BP 119/63; PULSE 82; RESP 16; TEMP 35.8; O2SAT 96
[2024-11-20] MEDS: OXYCODONE IR 5 MG TABLET PO ×2 (04:48→20:45)
[2024-11-20] MEDS: ACETAMINOPHEN 325 MG TABLET 650 MG PO ×4 (04:49→22:45)
[2024-11-20 08:00] VITALS: BP 136/69; PULSE 86; RESP 18; TEMP 36.6; O2SAT 95
[2024-11-20] MEDS: FLUTICASONE 120 SPRAY/16 GM SPRAY.SUSP NASAL (08:09)
[2024-11-20] MEDS: polyethylene glycoL 3350 17 GM POWD.PACK PO (08:10)
[2024-11-20] MEDS: DOCUSATE 100 MG CAPSULE PO ×2 (08:10→20:45)
[2024-11-20] MEDS: GABAPENTIN 300 MG CAPSULE PO ×3 (08:10→20:45)
[2024-11-20] MEDS: hydroCHLOROthiazide 25 MG TABLET 12.5 MG PO (08:10)
[2024-11-20] MEDS: CHOLECALCIFEROL (VITAMIN D3) 5,000 UNIT TABLET 10000 UNIT PO (08:10)
[2024-11-20] MEDS: ATORVASTATIN 20 MG TABLET 40 MG PO (08:10)
[2024-11-20] MEDS: ASPIRIN EC 81 MG TABLET PO ×2 (08:10→20:45)
[2024-11-20] MEDS: SODIUM CHLORIDE 0.9% FLUSH 10 ML IV ×2 (08:11→22:45)
[2024-11-20] MEDS: FUROSEMIDE 40 MG TABLET PO (08:11)
[2024-11-20] MEDS: NORTRIPTYLINE HCL 25 MG CAPSULE PO ×2 (08:11→20:45)
[2024-11-20] MEDS: INSULIN LISPRO 100 UNIT/ML 3ML VIAL SUBCUT ×7 (08:11→20:48)
[2024-11-20] MEDS: NEOMY/POLYM B/HC OTIC 10 ML 4 DROPS EAR-BOTH ×3 (08:11→20:47)
--- NOTE | 2024-11-20 08:26 | P.PN_ITS ---
Subjective Subjective Interval history: Patient found sitting comfortably in bed about to be again her breakfast. No new concerns today. She is awaiting SNF placement. Patient's pain is controlled with oral medication. ?Pain is localized to surgical site. ?Patient declines any new numbness or tingling at the surgical extremity. ?Patient denies any shortness of breath, dizziness, light-headedness, nausea, vomiting, fever or chills. Exam Vital Signs (past 8 hours): - 11/20/24 00:45 11/20/24 04:20 11/20/24 08:00 Temperature 96.4 F L 96.5 F L 97.9 F Pulse Rate 85 82 86 Respiratory Rate 15 16 18 Blood Pressure 115/59 L 119/63 136/69 Pulse Oximetry 96 96 95 Oxygen Flow Rate 0 0 0 Fraction of Inspired Oxygen 24 SaO2/FiO2 Ratio 404 Oxygen Delivery Method Room Air Oxygen Flow Rate 0 Narrative Exam Narrative: 5/5 strength in hip flexors, quadriceps, hamstrings, DF, PF, EHL bilaterally. Sensation to light touch intact throughout BLE. Calves soft, compressible, nontender. HANNAH Dressing placed intraoperatively has some drainage seeping through. If dressing becomes saturated, replace HANNAH pad. No complaints of instability of the right knee when ambulating with physical therapy. Objective Labs 11/19/24 05:30 11/19/24 05:30 [facility] Surgical History S/P ACL reconstruction Social History household members: spouse lives independently: Yes caregiver/support person: Yes Smoking Status: Never smoker alcohol intake: never Assessment & Plan Post-op Postoperative Procedures: Procedures Operation Date: 11/15/24 10:00 Actual Procedure Side Surgeon p Total Hip Arthroplasty Right Bethanie Corona MD Postoperative day: 5 Postoperative status: doing well Postoperative plan: routine post-op care and ambulate Postoperative plan narrative: Still awaiting SNF placement. H&H stable. Glucose is downward trending. (1) S/P total hip arthroplasty: Weightbearing as tolerated to right leg. Posterior hip precautions. No hip abductor strengthening exercises Continue ASA 81mg BID x 6 weeks for VTE prophylaxis. Follow up w/ [facility] in 2 weeks for wound check and repeat imaging of hip. Disposition and pain management per hospitalist service (2) S/P ACL reconstruction: If needed, she can be placed into a knee immobilizer for stability while walking and pursue outpatient follow up w/ her regular orthopedist for evaluation of her ACL and other graft/repair. (3) Carpal tunnel syndrome of right wrist: Continue bracing as needed. Time Spent With Patient Time with patient: less than 15 minutes Quality VTE Deep Vein Thrombosis/Pulmonary Embolism Present on Admission: No
--- NOTE | 2024-11-20 09:27 | DIET.CONS ---
Dietary Consultation Note Admission Date: 11/15/2024 04:32 Assessment: 59 y F admitted after GLF with hip fx. RD screened for LOS. Met with pt at bedside. Reports normal appetite here and before admission, at home does 2 meals per day, during stay here is eating additional meal of breakfast. Reports no recent weight loss. PO intakes >75%, DFM reviewed for meal composition. No nutritional interventions needed at this time. F/u 5-7 days if not d/c. Ht: 170.18 cm Wt: 92.533 kg BMI: 31.9 UBW: per pt 204-208 lb (93-94.5 kg) Last BM: 11/16/24 (11/16/24 20:00) MNA: 14 Balta Score: 21 Diet: 11/17/24 Breakfast Carbohydrate Consistent Diet Diet Modifications: dysph texture(no gravy, doesnt like) has no teeth. Carbohydrate level: Small (2 CHO) Bedtime snack: Yes Reflex DM orders: No Food Texture: Level 7 - Regular Liquid Consistency: Level 0 - Thin Nutrition Percent Meal Consumed 100% 11/19/24 18:00 Labs: RBC 2.90 X10^6/uL (4.0-5.2) L 11/19/24 05:30 Hgb 8.7 g/dL (12.0-16.0) L 11/19/24 05:30 Hct 25.1 % (36-46) L 11/19/24 05:30 Creatinine 0.78 mg/dL (0.52-1.04) 11/19/24 05:30 Electronically Signed by: Jacinta White 11/20/24 09:27 Clinical Dietitian [address] [id number]
[2024-11-20] MEDS: OXYCODONE IR 10 MG TABLET PO (10:51)
--- NOTE | 2024-11-20 11:40 | P.PN_ITS ---
Subjective Subjective Interval history: Summary: 59-year-old female with chronic pain and diabetes was admitted for hip fracture and status post repair on November 15. She was awaiting a authorization from [facility]. She is progressing with physical therapy. Subjective: Good pain control. No nausea. She was able to walk some stairs. She was progressing. Exam Vital Signs (past 8 hours): - 11/20/24 04:20 11/20/24 08:00 Temperature 96.5 F L 97.9 F Pulse Rate 82 86 Respiratory Rate 16 18 Blood Pressure 119/63 136/69 Pulse Oximetry 96 95 Oxygen Flow Rate 0 0 Fraction of Inspired Oxygen 24 SaO2/FiO2 Ratio 404 Oxygen Delivery Method Room Air Oxygen Flow Rate 0 Narrative Exam Narrative: NAD, alert and oriented. Fluent speech. Lungs are clear, normal rate and effort. Heart is regular, no murmur gallop or rub. Abdomen is soft, non distended. Extremities are free of edema. Objective Labs 11/19/24 05:30 11/19/24 05:30 [facility] Surgical History S/P ACL reconstruction Social History household members: spouse lives independently: Yes caregiver/support person: Yes Smoking Status: Never smoker alcohol intake: never Assessment & Plan Assessment & Plan narrative: 1. Right hip fracture from ground level fall. Present on admission and improved. - s/p R MARLENE on 11/15. - improved pain control, no changes today - continue PT/OT, likely SNF, awaiting auth 2. Otitis externa. Continue topical antibiotics. Present on admission and improving. 3. IDDM. Present on admission and stable. - continue lantus with sliding scale insulin. - increased lantus to 20 U 11/18, added meal time for elevated glucose during the day with improvement today as sugars are all now <180 today. 4. HTN. Present on admission and stable. - Monitor BP and resume home medications accordingly. 5. Dental cavities. Will need to follow up as outpatient for teeth extraction. 6. Acute blood loss anemia secondary to surgical blood loss, new and stable. - h/h stable today, slightly improved at 8.7, patient is asymptomatic. PLAN: -S/P MARLENE, doing well today -DVT prophylaxis per Orthopedics preference, ASA BID. - continue PT/OT, likely needs SNF but difficult placement at this time. Appreciate case management evaluations. -topical antibiotics for otitis externa. We will continue with physical therapy and see if the payor does authorize [facility] facility or not. This will likely go on over the weekend. ROSENDO: 11/23, SNF vs home. DVT PPx ASA BID Time-Based Coding :: [TOTAL MINUTES] spent with patient and on the chart (including review of chart, obtaining history, exam, reviewing outside data, placing orders, documenting exam and treatment plan, and counseling patient) on [DATE]. Quality VTE Deep Vein Thrombosis/Pulmonary Embolism Present on Admission: No
--- NOTE | 2024-11-20 11:53 | PT.IPTN ---
Current Diagnoses Carpal tunnel syndrome, right upper limb (11/15/24) Unspecified otitis externa, right ear (11/15/24) Disorder of teeth and supporting structures, unspecified (11/15/24) Unilateral primary osteoarthritis, right hip (11/15/24) Fracture of unspecified part of neck of right femur, initial encounter for closed fracture (11/15/24) Presence of unspecified artificial hip joint (11/15/24) Other specified postprocedural states (11/15/24) Surgery Performed Operation Date: 11/15/24 10:00 Actual Procedures p Total Hip Arthroplasty(Right) - Bethanie Corona MD Physical Therapy Treatment Note M3 PT-IP Subjective Start: 11/15/24 08:37 Freq: NEEDED Status: Active Protocol: Document 11/20/24 11:44 KJ (Rec: 11/20/24 11:52 KJ [id number]) Subjective Physical Therapy Visit Type Type Treatment Note Visit Start Time 10:46 Visit Stop Time 11:28 Physical Therapy Visit Comments Patient Comments Pt concerned the toilet in her home is too low and bathroom too small for her to use properly due to the condition of her RLE and post hip precautions. Therapy Pain Assessment Pain When Pain Assessed During Mobility Pain Present Pain Present Pain Reported Location right hip Description Pulling Pain Behaviors Holding Area Pain Management Techniques Distraction,Re-positioning, Timing of Activity with Medications M4 PT-IP Mobility and Gait Start: 11/15/24 08:37 Freq: NEEDED Status: Active Protocol: Document 11/20/24 11:44 KJ (Rec: 11/20/24 11:52 KJ [id number]) PT-Transfer Assessment Sit to and From Stand Sit to and from Stand Standby Assistance Equipment Transfer Assistive Device Gait Belt,Front Wheeled Walker Orthotic/Prosthetic Devices or Brace: No Transfers Transfer Destination Toilet Transfer Technique Stand Step Pivot Transfer Ability Level of Assist Contact Guard Assistance Gait Assessment Gait Gait Assistance Required: Standby Assistance Distance (Feet) 75 Assistive Devices Assistive Device Gait Belt,Front Wheeled Walker Orthotic/Prosthetic Devices or Brace: No Gait Deviations General Gait Pattern Decreased Stride Length,Flexed Trunk Factors Limiting Gait Function Factors Limiting Gait Function Limited Range of Motion,Pain Comments Gait Comments Ambulates with a step through gait w/fww. Not placing much weight on the RLE, usually R ankle held in dorsiflex resulting in little weight through the heel. Otherwise gait is slow and steady. Stair Climbing Assessment Evaluation Level of Assist On Stairs Contact Guard Assistance Devices Stair Climbing Assistive Devices Left Railing,Right Railing Technique/Endurance Stair Climbing Direction Ascend and Descend Stair Climbing Technique Step to Step Number of Steps Climbed 3 Stair Climbing Set # Repetitions (reps) 2 Comments Stair Climbing Comments First trial used bilat railings. Second trial stepped up sideways leading w/L using rail w/LUE and crutch w/RUE. PT-Balance Assessment Sitting Balance and Reactions Static Sitting Balance Ability Normal Dynamic Sitting Balance Ability Normal Standing Balance and Reactions Static Standing Balance Ability Normal Dynamic Standing Balance Ability Good M5 PT-IP Objective Assessments Start: 11/15/24 08:37 Freq: NEEDED Status: Active Protocol: Document 11/16/24 14:05 MB (Rec: 11/16/24 14:34 MB [id number]) Orientation Orientation/Cognition Level of Alertness Alert Orientation Name,Age,Birthday,Month,Date, Year,Day of Week,Place, Situation Language Function Ability No Deficits Noted Safety Awareness Decreased Safety Awareness Memory Description No Deficits Noted Gross Range of Motion Upper Extremity ROM Impairments Defer to OT Lower Extremity ROM Assessment Bilaterally Impaired Strength Lower Extremity Strength Assessment Bilaterally Impaired Ankle 4/5 B ankle DF and great toe extension Comments Strength Comments Pt's right foot is IR/inverted at baseline and she reports limited B hip movement from right hip issues and previous left hip placement that did not recover well and she did not get PT after it, she does not tolerate full range and strength ROM Coordination Assessment Gross Coordination Gross Coordination Impaired Sensation Assessment Sensation Gross Sensation WNL Muscle Tone Muscle Tone WNL Yes Comments Muscle Tone Comments Increased tension in B PFs M6 PT-IP Treatment Start: 11/15/24 08:37 Freq: NEEDED Status: Active Protocol: Document 11/20/24 11:44 KJ (Rec: 11/20/24 11:52 KJ [id number]) Physical Therapy Treatment Exercises Exercises Ankle Pumps,Gluteal Sets,Quad Sets Education Education Provided Weight Bearing Status,Safety Other Treatments Other Treatment Performed Encouraged weight shifting onto RLE M7 PT-IP Assessment and Plan Start: 11/15/24 08:37 Freq: NEEDED Status: Active Protocol: Document 11/20/24 11:44 KJ (Rec: 11/20/24 11:52 KJ [id number]) PT Summary Assessment and Plan Potential Rehabilitation Potential Excellent Status of Condition at Evaluation Stable Summary Impairments Pain,Strength Progress Towards Goals Progressing Toward Goals Assessment Summary Pt progressing well on stairs Goals Bed Mobility Goal Independent Transfer Goal Independent Gait Goal Independent Gait Distance 100 Other Goals Ascend/descend 3 steps w/sba w / or w/out railing w/sba Ascend/descend 1 step w/out railing w/sba Ambulate w/forearm crutches 100' Frequency of Treatment Frequency Of Treatment Once a Day Treatment Plan Physical Therapy Treatment Plan Gait Training Other Recommendations and Next Treatment Continue to work on stairs and Focus steps w/ and w/out railings. Progress to ambulation w/ forearm crutches Precautions Posterior Hip Precautions No Hip Flexion > 90 degrees,No Hip Internal Rotation,No Hip Adduction Weight Bearing Status Weight Bearing Status Weight Bear as Tolerated Recommendations To Nursing Amount of Assist Needed 1 Person Assist Discharge Recommendations PT Discharge Recommendations Home with 03/06 Assist Available Transportation Needs at Discharge Private Vehicle
[2024-11-20 12:00] VITALS: BP 149/77; RESP 18; TEMP 36.3; O2SAT 98
--- NOTE | 2024-11-20 13:39 | CM.DPNOTE ---
Addendum entered by BRENDAN Gay 11/20/24 14:57: Correction: [facility]. Patient lives in [facility] does not serve this area. Original Note: DCP Cont According to conversation with Lin at [facility] this morning; she was able to get a hold of someone at [facility] who reports that a SNF auth could take up to 4-5 days. Updated team in multidisciplinary rounds. Patient is improving functionally, is able to complete stairs with railing. Although patient's fifth wheel does not have railing, it is expected she will be discharged home eventually. Met w/patient to review discharge plan. Patient reports numerous concerns about return home and upset that [facility] is not authorizing SNF stay in a timely manner. Specifically, patient concerned that: she does not have railing into her fifth wheel, no railing into her lifted bedroom area, no chair she can sleep in and no room for a recliner or any temporary railing. Discussed asking the [facility] and/or [facility] to get her into her fifth wheel and patient states she will not allow them into her home. Provided patient with the [facility] [facility] contact P (shared by Genie Amor, admitting). Patient was able to get through to someone and relay her disappointment in the process. Patient shares with this PRINTING ENGINEER that an emergency stat request has now been placed (?) Updated OT with summary of above. Plan: [facility] if SNF auth is secured vs home w/sp, HH (if patient agreeable and HH can be secured-). ROSENDO 11/20 CM team following closely for coordination efforts. KHRIS
[2024-11-20 16:00] VITALS: BP 161/74; PULSE 109; RESP 20; TEMP 36.3; O2SAT 97
--- NOTE | 2024-11-20 16:15 | OT.IP.TRT ---
Current Diagnoses Carpal tunnel syndrome, right upper limb (11/15/24) Unspecified otitis externa, right ear (11/15/24) Disorder of teeth and supporting structures, unspecified (11/15/24) Unilateral primary osteoarthritis, right hip (11/15/24) Fracture of unspecified part of neck of right femur, initial encounter for closed fracture (11/15/24) Presence of unspecified artificial hip joint (11/15/24) Other specified postprocedural states (11/15/24) Surgery Performed Operation Date: 11/15/24 10:00 Actual Procedures p Total Hip Arthroplasty(Right) - Bethanie Corona MD Occupational Therapy Treatment Note M2 OT-IP Current Condition Start: 11/16/24 10:41 Freq: Status: Active Protocol: Document 11/16/24 10:41 CGR (Rec: 11/16/24 11:08 CGR [id number]) Occupational Therapy Current Condition Current Condition Evaluation Date 11/16/24 Treatment Diagnosis fall with R hip fx s/p posterior MARLENE 11/15/24 Diagnosis Onset Date 11/15/24 Post Operative Precautions Posterior Hip Precautions No Hip Flexion > 90 degrees,No Hip Internal Rotation,No Hip Adduction Weight Bearing Status Weight Bearing Status Weight Bear as Tolerated M3 OT- IP Subjective and Pain Start: 11/16/24 10:41 Freq: Status: Active Protocol: Document 11/20/24 16:28 [facility] (Rec: 11/20/24 16:40 [facility] [id number]) OT- Subjective Occupational Therapy Visit Type Type Treatment Note Visit Start Time 15:15 Visit Stop Time 16:15 Occupational Therapy Visit Comments Patient Comments Pt's in the room and wearing a leg brace and just able to use one hand to assist pt. Patient/Caregiver Goals To get better. OT Pain Assessment Pain When Pain Assessed During Mobility Pain Present Pain Present Pain Reported M4 OT- IP ADL's Start: 11/16/24 10:41 Freq: Status: Active Protocol: Document 11/20/24 16:28 [facility] (Rec: 11/20/24 16:40 [facility] [id number]) OT [id number]-Wnrhoyb General Evaluation Self-Feeding Ability Independent OT ADL-Grooming General Evaluation Grooming Ability Independent OT ADL-Oral Care General Eval Oral Care Ability Independent OT ADL-Dressing Comments OT Dressing Comments Not performed. OT ADL-Toileting Comments OT Toileting Comments Per pt's -there is no room in the bathroom for equipment in addition that the floor is rotten and not able to use safely. Suggested they get a BSC for pt to use elsewhere and also use of campground bathroom for showering needs. OT ADL-Bathing Comments OT Bathing Comments Pt will benefit from use of campground showers with to assist. M5 OT- IP IADL's Start: 11/16/24 10:41 Freq: Status: Active Protocol: Document 11/16/24 10:41 CGR (Rec: 11/16/24 11:08 CGR [id number]) OT-Instrumental Activities of Daily Living Deficits IADL Deficits Identified No Deficits Home Safety Awareness Awareness of Need for Assistance at Home Good Awareness Ability to Problem Solve Emergency Able to Problem Solve Situations Medication Management Medication Management No Deficits Identified Money Management Money Management No Deficits Identified Meal Preparation Meal Preparation Comments Concerns regarding pt's ability to perform currently. Vp Care Management Vp Care Management Comments Concerns regarding pt's ability to perform currently. Driving Driving Concerns Identified Regarding Safety M6 OT- IP Functional Cognition Start: 11/16/24 10:41 Freq: Status: Active Protocol: Document 11/20/24 16:28 [facility] (Rec: 11/20/24 16:40 [facility] [id number]) Cognitive Factors Limiting Selfcare Function Cognitive Comments Cognitive Assessment Comments Pt's making snide comments and joking around. It would be beneficial for pt to have home health to home safety for environment and conditions. Pt's insisting on making a 5 foot ramp to negotiate 3 steps. Pt and therapist states ramp would be way too short and better off to put on railing to help get into the rv. M7 OT- IP Mobility and Balance Start: 11/16/24 10:41 Freq: Status: Active Protocol: Document 11/20/24 16:28 [facility] (Rec: 11/20/24 16:40 [facility] [id number]) OT- Bed Mobility Assessment Supine to Sit Supine to Sit Assist Minimal Assistance Sit to Supine Sit to Supine Assist Minimal Assistance OT-Transfer Assessment Sit to and From Stand Sit to and from Stand Standby Assistance,Contact Guard Assistance Transfers Transfer Ability Standby Assistance,Contact Guard Assistance Technique Transfer Destination Bed,Chair Transfer Technique Stand Step Pivot Devices Transfer Assistive Devices Gait Belt,Platform Walker Comments Mobility Comments Able to practice with her to get up and down from a high bed and pt's able to assist with her RLE. Pt able to come to stand with CGA to SBA to her platform walker and safety walk in the room with use of the brakes to slow the platform walker down. OT- Balance Assessment Sitting Balance and Reactions Static Sitting Balance Ability Normal Dynamic Sitting Balance Ability Good Standing Balance and Reactions Static Standing Balance Ability Good Dynamic Standing Balance Ability Good M8 OT- IP Objective Assessments Start: 11/16/24 10:41 Freq: Status: Active Protocol: Document 11/16/24 10:41 CGR (Rec: 11/16/24 11:08 CGR [id number]) OT Gross Range of Motion Upper Extremity Range of Motion Assessment Left Impaired ROM Impairments L shld impairment, pt states she thinks she tore something in the recent past. Pt states that B shlds hurt with internal rotation and states that she typically stand to wipe from the back and it is painful. OT Strength Upper Extremity Strength Assessment Within Functional Limits Comments Strength Comments for arms and hands 4/5 OT- Coordination Assessment Upper Extremity Finger to Nose Test Within Functional Limits Finger Tapping Test Within Functional Limits Comments Coordination Comments no significant deficits. OT-Muscle Tone Assessment Muscle Tone WNL Yes OT Sensation Assessment Edema Edema Present Edema Comments general minimal swelling. M9 OT- IP Assessment and Plan Start: 11/16/24 10:41 Freq: Status: Active Protocol: Document 11/20/24 16:28 [facility] (Rec: 11/20/24 16:40 [facility] [id number]) OT Summary Assessment and Plan Potential Rehabilitation Potential Good Analytic Complexity at Evaluation Moderate Summary OT Impairments Pain,Range of Motion,Strength, Balance,Functional Mobility, Dressing,Toileting,Bathing, Toilet Transfers,Shower Transfers,Activity Tolerance Progress Towards Goals Progressing Toward Goals Assessment Summary Pt's present and able to safely assist pt up from the recliner, low surfaces and hi bed. Pt's house set- up for bathroom is not safe and suggested best to use a BSC and use of campground showers instead. Pt to go home with 24 /7 assist and home health versus short skilled rehab. Goals Grooming Goal Independent Dressing Goal Independent Toileting Goal Independent Bathing Goal Independent Toilet Transfer Goal Independent Shower Transfer Goal Independent Patient/Caregiver Education Goal Demonstrate Post-Op Precautions Days to Meet Goals 10 Frequency of Treatment Other frequency 5x per week Treatment Plan OT Treatment Plan ADL Training,Functional Mobility,Therapeutic Exercises ,Patient/Family Education, Discharge Planning Discharge Recommendations OT Discharge Recommendations Home with 03/06 Assist Available,Home Health,Home vs SNF Transportation Needs at Discharge Private Vehicle
[2024-11-20 20:00] VITALS: BP 142/60; PULSE 92; RESP 16; TEMP 36.8; O2SAT 96
[2024-11-20] MEDS: INSULIN GLARGINE 100 UNIT/ML 3ML PEN 20 UNIT SUBCUT (20:47)
[2024-11-21] VITALS: BP 133/70; PULSE 83; RESP 16; TEMP 36.7; O2SAT 96
[2024-11-21 04:00] VITALS: BP 157/75; PULSE 83; RESP 14; TEMP 36.4; O2SAT 98
[2024-11-21] MEDS: OXYCODONE IR 5 MG TABLET PO ×4 (05:07→17:16)
[2024-11-21] MEDS: ACETAMINOPHEN 325 MG TABLET 650 MG PO ×4 (05:07→22:03)
[2024-11-21] MEDS: INSULIN LISPRO 100 UNIT/ML 3ML VIAL SUBCUT ×5 (07:57→17:17)
[2024-11-21 08:00] VITALS: BP 143/66; PULSE 75; RESP 18; TEMP 36.6; O2SAT 100
[2024-11-21] MEDS: ATORVASTATIN 20 MG TABLET 40 MG PO (08:00)
[2024-11-21] MEDS: hydroCHLOROthiazide 25 MG TABLET 12.5 MG PO (08:01)
[2024-11-21] MEDS: OXYCODONE IR 10 MG TABLET PO ×4 (08:01→22:01)
[2024-11-21] MEDS: CHOLECALCIFEROL (VITAMIN D3) 5,000 UNIT TABLET 10000 UNIT PO (08:02)
[2024-11-21] MEDS: FUROSEMIDE 40 MG TABLET PO (08:02)
[2024-11-21] MEDS: FLUTICASONE 120 SPRAY/16 GM SPRAY.SUSP NASAL (08:02)
[2024-11-21] MEDS: ASPIRIN EC 81 MG TABLET PO ×2 (08:02→20:26)
[2024-11-21] MEDS: NEOMY/POLYM B/HC OTIC 10 ML 4 DROPS EAR-BOTH ×3 (08:03→20:33)
[2024-11-21] MEDS: DOCUSATE 100 MG CAPSULE PO ×2 (08:03→20:26)
[2024-11-21] MEDS: TIZANIDINE 4 MG TABLET PO ×2 (08:04→21:58)
[2024-11-21] MEDS: NORTRIPTYLINE HCL 25 MG CAPSULE PO ×2 (08:04→20:26)
[2024-11-21] MEDS: GABAPENTIN 300 MG CAPSULE PO ×3 (08:04→20:26)
[2024-11-21] MEDS: SODIUM CHLORIDE 0.9% FLUSH 10 ML IV ×2 (09:29→20:27)
--- NOTE | 2024-11-21 10:55 | PT.IPTN ---
Current Diagnoses Carpal tunnel syndrome, right upper limb (11/15/24) Unspecified otitis externa, right ear (11/15/24) Disorder of teeth and supporting structures, unspecified (11/15/24) Unilateral primary osteoarthritis, right hip (11/15/24) Fracture of unspecified part of neck of right femur, initial encounter for closed fracture (11/15/24) Presence of unspecified artificial hip joint (11/15/24) Other specified postprocedural states (11/15/24) Surgery Performed Operation Date: 11/15/24 10:00 Actual Procedures p Total Hip Arthroplasty(Right) - Bethanie Corona MD Physical Therapy Treatment Note M3 PT-IP Subjective Start: 11/15/24 08:37 Freq: NEEDED Status: Active Protocol: Document 11/21/24 10:55 AB (Rec: 11/21/24 12:59 AB [id number]) Subjective Physical Therapy Visit Type Type Treatment Note Visit Start Time 10:55 Visit Stop Time 11:30 Number of HOME HEALTH CAREGIVER Visits 35 Physical Therapy Visit Comments Patient Comments agreeable to do PT Therapy Pain Assessment Pain When Pain Assessed At Rest Pain Present Pain Present Pain Reported Location right hip Intensity 4 Scale Used Numeric (0 - 10) Pain Management Techniques Apply Cold,Distraction, Modification of Treatment,Re- positioning,Timing of Activity with Medications M4 PT-IP Mobility and Gait Start: 11/15/24 08:37 Freq: NEEDED Status: Active Protocol: Document 11/21/24 10:55 AB (Rec: 11/21/24 12:59 AB [id number]) PT-Bed Mobility Assessment Supine to Sit Supine to Sit Standby Assistance Sit to Supine Sit to Supine Standby Assistance PT-Transfer Assessment Sit to and From Stand Sit to and from Stand Contact Guard Assistance,1 Person Assistance,Use of Upper Extremities Equipment Transfer Assistive Device Gait Belt,4 Wheeled Walker Orthotic/Prosthetic Devices or Brace: No Transfers Transfer Destination Bed,Chair Transfer Technique Stand Step Pivot Transfer Ability Level of Assist Standby Assistance,Contact Guard Assistance,Use of Upper Extremities Comments Mobility Comments pt sitting on the chair and agreeable to do PT. reviewed posterior hip precautions and pt was able to recall. pt completed sit to stand from the chair CGA and cues for precautions and safety. pt ambulated in the hallway ~ 100 ft using upright 4WW SBA to CGA and cues. presents with antalgic gait. pt ambulated back to the room and sat back on chair. cues to move RLE forward for hip precautions before sitting. pt stated that she has one step to enter her trailer and 2 steps to get to the kitchen. stated that a rail or ramp cannot be put in for the one step to enter the trailer and cannot use 2 crutches due to the tight space. stated that she had a few falls already when she was doing stairs using just one rail +1 crutch but not enough space to use 2 crutches. pt also stated that spouse will not be able to assist her much due to spouse' s h/o CVAs and has been using AFO and forearm crutches for mobility. pt completed sit to stand from the chair CGA cued again to move RLE forward before standing for hip precaution. step transfer to EOB using upright 4WW SBA to CGA. pt completed sit <>supine SBA. pt requiring increase time to complete. step transfer back to chair using upright 4WW SBA to CGA positioned pt on the chair. call light and table placed within reach. Gait Assessment Gait Gait Assistance Required: Standby Assistance,Contact Guard Assist,1 Person Assist Distance (Feet) 100 Able to Maintain Weight Bearing Status Yes During Gait Assistive Devices Assistive Device Gait Belt,4 Wheeled Walker Orthotic/Prosthetic Devices or Brace: No Gait Deviations General Gait Pattern Antalgic,Decreased Stride Length,Decreased Feet Clearance,Step-to Gait Factors Limiting Gait Function Factors Limiting Gait Function Decreased Activity Tolerance, Decreased Strength,Limited Range of Motion,Pain,Poor Balance,Poor Safety Awareness M5 PT-IP Objective Assessments Start: 11/15/24 08:37 Freq: NEEDED Status: Active Protocol: Document 11/16/24 14:05 MB (Rec: 11/16/24 14:34 MB [id number]) Orientation Orientation/Cognition Level of Alertness Alert Orientation Name,Age,Birthday,Month,Date, Year,Day of Week,Place, Situation Language Function Ability No Deficits Noted Safety Awareness Decreased Safety Awareness Memory Description No Deficits Noted Gross Range of Motion Upper Extremity ROM Impairments Defer to OT Lower Extremity ROM Assessment Bilaterally Impaired Strength Lower Extremity Strength Assessment Bilaterally Impaired Ankle 4/5 B ankle DF and great toe extension Comments Strength Comments Pt's right foot is IR/inverted at baseline and she reports limited B hip movement from right hip issues and previous left hip placement that did not recover well and she did not get PT after it, she does not tolerate full range and strength ROM Coordination Assessment Gross Coordination Gross Coordination Impaired Sensation Assessment Sensation Gross Sensation WNL Muscle Tone Muscle Tone WNL Yes Comments Muscle Tone Comments Increased tension in B PFs M6 PT-IP Treatment Start: 11/15/24 08:37 Freq: NEEDED Status: Active Protocol: Document 11/21/24 10:55 AB (Rec: 11/21/24 12:59 AB [id number]) Physical Therapy Treatment Education Education Provided Precautions,Safety M7 PT-IP Assessment and Plan Start: 11/15/24 08:37 Freq: NEEDED Status: Active Protocol: Document 11/21/24 10:55 AB (Rec: 11/21/24 12:59 AB [id number]) PT Summary Assessment and Plan Potential Rehabilitation Potential Good Summary Impairments Pain,ROM,Strength,Balance, Coordination,Sensation,Tone, Cognition,Bed Mobility, Transfers,Gait,Activity Tolerance Progress Towards Goals Progressing Toward Goals Assessment Summary pt progressing well with mobility and requires SBA to CGA with ambulation using an upright 4WW. pt continues to require assistance at home and is limited with assistance from spouse when pt goes home due to spouse's medical conditions. pt also have steps to enter the trailer and to get to the main living area of the trailer. will continue to assess progress. Goals Bed Mobility Goal Independent Transfer Goal Independent,Front Wheeled Walker,Four Wheeled Walker Gait Goal Independent,Front Wheel Walker ,Four Wheel Walker Gait Distance 100 Other Goals Ascend/descend 3 steps w/sba w / or w/out railing w/sba Ascend/descend 1 step w/out railing w/sba Ambulate w/forearm crutches 100' Days to Meet Goals 5 Frequency of Treatment Frequency Of Treatment Once a Day Other frequency once a day Treatment Plan Physical Therapy Treatment Plan Bed Mobility Training,Transfer Training,Gait Training, Therapeutic Exercise,Balance Retraining,Post Op Education, Discharge Planning,Hot or Cold Pack,Neuromuscular Re-ed, Coordination Retraining,Manual Therapy Precautions Posterior Hip Precautions No Hip Flexion > 90 degrees,No Hip Internal Rotation,No Hip Adduction Other Precautions No hip abduction strengthening on op report Weight Bearing Status Weight Bearing Status Weight Bear as Tolerated Allowed Weight Bearing Amount (enter % RLE WBAT or #) (%) Recommendations To Nursing Amount of Assist Needed 1 Person Assist Discharge Recommendations PT Discharge Recommendations Home with Assistance,Home Health,SNF Rehab Transportation Needs at Discharge Private Vehicle
--- NOTE | 2024-11-21 11:51 | CM.DPNOTE ---
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 Will keep our team updated. Per PT in morning rounds, pt completed stairs yesterday with rails but pt's home stairs do not have rails. Plan: [facility] if SNF auth is secured vs home w/sp. CM team will continue to follow closely. If SNF, [facility] needed Cari Emanuel, BRENDAN
[2024-11-21 12:00] VITALS: BP 109/67; PULSE 96; RESP 18; TEMP 36.4; O2SAT 96
--- NOTE | 2024-11-21 12:11 | P.PN_ITS ---
Subjective Subjective Date Patient Seen: 11/21/24 Time Patient Seen: 12:30 Interval history: Summary: 59-year-old female with chronic pain and diabetes was admitted for hip fracture and status post repair on November 15. She was awaiting a authorization from [facility]. She is progressing with physical therapy. Subjective: Adequate pain control. No nausea. She was able to walk some stairs yesterday. Exam Vital Signs (past 8 hours): - 11/21/24 08:00 Temperature 97.9 F Pulse Rate 75 Respiratory Rate 18 Blood Pressure 143/66 H Pulse Oximetry 100 Oxygen Flow Rate 0 Fraction of Inspired Oxygen 24 SaO2/FiO2 Ratio 404 Oxygen Delivery Method Room Air Oxygen Flow Rate 0 Narrative Exam Narrative: NAD, alert and oriented. Fluent speech. Lungs are clear, normal rate and effort. Heart is regular, no murmur gallop or rub. Abdomen is soft, non distended. Extremities are free of edema. Objective Labs 11/19/24 05:30 11/19/24 05:30 [facility] Surgical History S/P ACL reconstruction Social History household members: spouse lives independently: Yes caregiver/support person: Yes Smoking Status: Never smoker alcohol intake: never Assessment & Plan Assessment & Plan narrative: 1. Right hip fracture from ground level fall. Present on admission and improved. - s/p R MARLENE on 11/15. - improved pain control, no changes today - continue PT/OT, likely SNF, awaiting auth 2. Otitis externa. Continue topical antibiotics. Present on admission and improving. 3. IDDM. Present on admission and stable. - continue lantus with sliding scale insulin. - increased lantus to 20 U 11/18, added meal time for elevated glucose during the day with improvement today as sugars are all now <180 today. 4. HTN. Present on admission and stable. - Monitor BP and resume home medications accordingly. 5. Dental cavities. Will need to follow up as outpatient for teeth extraction. 6. Acute blood loss anemia secondary to surgical blood loss, new and stable. - h/h stable today, slightly improved at 8.7, patient is asymptomatic. PLAN: -S/P MARLENE, doing well today -DVT prophylaxis per Orthopedics preference, ASA BID. -continue PT/OT, likely needs SNF but difficult placement at this time. Appreciate case management evaluations. -topical antibiotics for otitis externa. We will continue with physical therapy and see if the payor does authorize senior living facility or not. This will likely go on over the weekend. ROSENDO: 11/23, SNF vs home. DVT PPx ASA BID Quality VTE Deep Vein Thrombosis/Pulmonary Embolism Present on Admission: No IH PROFEE Charge codes Subsequent inpatient/observation care: 20940
--- NOTE | 2024-11-21 13:42 | PM.PNPO.1 ---
Subjective Subjective Date Patient Seen: 11/21/24 Time Patient Seen: 13:42 Interval history: Patient states she is doing well. She has been able to work with physical therapy and is able to ambulate up and down stairs with hand rails. She has still not gone a discharge location set up yet. He has been working with case management as well as their insurance to find a place to be discharged to. Patient's pain is controlled with oral medication. ?Pain is localized to surgical site. ?Patient declines any new numbness or tingling at the surgical extremity. ?Patient denies any shortness of breath, dizziness, light-headedness, nausea, vomiting, fever or chills. Exam Vital Signs (past 8 hours): - 11/21/24 08:00 11/21/24 12:00 Temperature 97.9 F 97.6 F Pulse Rate 75 96 H Respiratory Rate 18 18 Blood Pressure 143/66 H 109/67 Pulse Oximetry 100 96 Oxygen Flow Rate 0 0 Fraction of Inspired Oxygen 24 SaO2/FiO2 Ratio 404 Oxygen Delivery Method Room Air Oxygen Flow Rate 0 Narrative Exam Narrative: Patient found sitting comfortably in chair in her street clothes. 5/5 strength in hip flexors, quadriceps, hamstrings, DF, PF, EHL bilaterally. Sensation to light touch intact throughout BLE. Calves soft, compressible, nontender. HANNAH dressing placed intraoperatively has scant discharge. No increase in discharge since yesterday. Hannah VAC has been removed by nursing staff due battery power running out.. Resp Effort & Inspection: normal respiratory effort and able to speak in complete sentences Objective Labs 11/19/24 05:30 11/19/24 05:30 [facility] Surgical History S/P ACL reconstruction Social History household members: spouse lives independently: Yes caregiver/support person: Yes Smoking Status: Never smoker alcohol intake: never Assessment & Plan Post-op Postoperative Procedures: Procedures Operation Date: 11/15/24 10:00 Actual Procedure Side Surgeon p Total Hip Arthroplasty Right Bethanie Corona MD Postoperative day: 6 Postoperative status: doing well Postoperative plan: routine post-op care and ambulate Postoperative plan narrative: Still awaiting SNF placement. Glucose is downward trending. (1) S/P total hip arthroplasty: Weightbearing as tolerated to right leg. Posterior hip precautions. No hip abductor strengthening exercises Continue ASA 81mg BID x 5 weeks for VTE prophylaxis. Keep dressing on, clean and dry, until follow up in clinic. Follow up w/ [facility] in 1 weeks for wound check and repeat imaging of hip. Disposition and pain management per hospitalist service (2) S/P ACL reconstruction: If needed, she can be placed into a knee immobilizer for stability while walking and pursue outpatient follow up w/ her regular orthopedist for evaluation of her ACL and other graft/repair. (3) Carpal tunnel syndrome of right wrist: Continue bracing as needed. Time Spent With Patient Time with patient: less than 15 minutes Quality VTE Deep Vein Thrombosis/Pulmonary Embolism Present on Admission: No
[2024-11-21 16:00] VITALS: BP 145/71; PULSE 84; RESP 16; TEMP 36.6; O2SAT 99
[2024-11-21 20:00] VITALS: BP 139/73; PULSE 84; RESP 16; TEMP 36.1; O2SAT 98
[2024-11-21] MEDS: INSULIN GLARGINE 100 UNIT/ML 3ML PEN 20 UNIT SUBCUT (20:42)
--- NOTE | 2024-11-22 02:25 | PC.NURSE ---
Assumed care of patient at 0130.
[2024-11-22 04:00] VITALS: BP 142/65; PULSE 77; RESP 16; TEMP 36.4; O2SAT 95
[2024-11-22] MEDS: OXYCODONE IR 10 MG TABLET PO ×2 (04:37→09:05)
[2024-11-22 08:00] VITALS: BP 148/58; PULSE 83; RESP 18; TEMP 36.4; O2SAT 96
[2024-11-22] MEDS: CHOLECALCIFEROL (VITAMIN D3) 5,000 UNIT TABLET 10000 UNIT PO (09:06)
[2024-11-22] MEDS: hydroCHLOROthiazide 25 MG TABLET 12.5 MG PO (09:06)
[2024-11-22] MEDS: DOCUSATE 100 MG CAPSULE PO (09:07)
[2024-11-22] MEDS: ATORVASTATIN 20 MG TABLET 40 MG PO (09:07)
[2024-11-22] MEDS: ASPIRIN EC 81 MG TABLET PO (09:07)
[2024-11-22] MEDS: GABAPENTIN 300 MG CAPSULE PO ×2 (09:07→14:13)
[2024-11-22] MEDS: NORTRIPTYLINE HCL 25 MG CAPSULE PO (09:07)
[2024-11-22] MEDS: FUROSEMIDE 40 MG TABLET PO (09:07)
[2024-11-22] MEDS: INSULIN LISPRO 100 UNIT/ML 3ML VIAL SUBCUT ×6 (09:08→16:53)
[2024-11-22] MEDS: NEOMY/POLYM B/HC OTIC 10 ML 4 DROPS EAR-BOTH ×2 (09:14→14:13)
[2024-11-22] MEDS: SODIUM CHLORIDE 0.9% FLUSH 10 ML IV (09:15)
--- NOTE | 2024-11-22 10:52 | PM.PN.1 ---
Subjective Subjective Date Patient Seen: 11/22/24 Time Patient Seen: 08:40 Interval history: Summary: 59-year-old female with chronic pain and diabetes was admitted for hip fracture and status post repair on November 15. She was awaiting a authorization from [facility] for senior living facility. She is progressing with physical therapy. Subjective: She is able to get up with contact guard assist. Awaiting senior living facility placement. Consider home with home health though she lives in a trailer and has considerable limitations in terms of home assistance, with her unable to provide help. Exam Vital Signs (past 8 hours): - 11/22/24 04:00 11/22/24 08:00 11/22/24 08:00 Temperature 97.6 F 97.6 F Pulse Rate 77 83 Respiratory Rate 16 18 Blood Pressure 142/65 H 148/58 H Pulse Oximetry 95 96 Oxygen Delivery Method Room Air Oxygen Flow Rate 0 0 Fraction of Inspired Oxygen 24 SaO2/FiO2 Ratio 404 Oxygen Delivery Method Room Air Oxygen Flow Rate 0 Narrative Exam Narrative: NAD, alert and oriented. Fluent speech. Lungs are clear, normal rate and effort. Heart is regular, no murmur gallop or rub. Abdomen is soft, non distended. Extremities are free of edema. Right hip bandage in place, clean, dry and intact. Objective Labs 11/19/24 05:30 11/19/24 05:30 [facility] Surgical History S/P ACL reconstruction Social History household members: spouse lives independently: Yes caregiver/support person: Yes Smoking Status: Never smoker alcohol intake: never Assessment & Plan Assessment & Plan narrative: 1. Right hip fracture from ground level fall. Present on admission and improved. - s/p R MARLENE on 11/15. - improved pain control, no changes today - continue PT/OT, likely SNF, awaiting auth, though given that she requires only contact guard assist may be able to manage with home health/outpatient PT 2. Otitis externa. Continue topical antibiotics. Present on admission and improving. 3. IDDM. Present on admission and stable. - continue lantus with sliding scale insulin. - increased lantus to 20 U 11/18, added meal time for elevated glucose during the day with improvement but still variable readings from 90-230s. 4. HTN. Present on admission and stable. - Monitor BP and resume home medications accordingly. 5. Dental cavities. Will need to follow up as outpatient for teeth extraction. 6. Acute blood loss anemia secondary to surgical blood loss, new and stable. - h/h stable today, slightly stable at 8.7, patient is asymptomatic. PLAN: -S/P MARLENE, doing well -DVT prophylaxis per Orthopedics preference, ASA BID. -continue PT/OT, likely needs SNF but difficult placement at this time. Appreciate case management evaluations. Likely discharge tomorrow. -topical antibiotics for otitis externa. We will continue with physical therapy and see if the payor does authorize senior living facility or not. This will likely go on over the weekend. ROSENDO: 11/23, SNF vs home. DVT PPx ASA BID Quality VTE Deep Vein Thrombosis/Pulmonary Embolism Present on Admission: No IH PROFEE Charge codes Subsequent inpatient/observation care: 56069
[2024-11-22] MEDS: ACETAMINOPHEN 325 MG TABLET 650 MG PO (11:51)
--- NOTE | 2024-11-22 14:13 | PT.IPTN ---
Current Diagnoses Carpal tunnel syndrome, right upper limb (11/15/24) Unspecified otitis externa, right ear (11/15/24) Disorder of teeth and supporting structures, unspecified (11/15/24) Unilateral primary osteoarthritis, right hip (11/15/24) Fracture of unspecified part of neck of right femur, initial encounter for closed fracture (11/15/24) Presence of unspecified artificial hip joint (11/15/24) Other specified postprocedural states (11/15/24) Surgery Performed Operation Date: 11/15/24 10:00 Actual Procedures p Total Hip Arthroplasty(Right) - Bethanie Corona MD Physical Therapy Treatment Note M3 PT-IP Subjective Start: 11/15/24 08:37 Freq: NEEDED Status: Active Protocol: Document 11/22/24 13:40 MB (Rec: 11/22/24 14:13 MB [id number]) Subjective Physical Therapy Visit Type Type Treatment Note Visit Start Time 13:40 Visit Stop Time 14:08 Number of BED WORKER Visits 0 Physical Therapy Visit Comments Patient Comments Pt is agreeable to PT M4 PT-IP Mobility and Gait Start: 11/15/24 08:37 Freq: NEEDED Status: Active Protocol: Document 11/22/24 13:40 MB (Rec: 11/22/24 14:13 MB [id number]) PT-Transfer Assessment Sit to and From Stand Sit to and from Stand Independent,Use of Upper Extremities Equipment Transfer Assistive Device Gait Belt,Forearm Crutches Orthotic/Prosthetic Devices or Brace: No Transfers Transfer Destination Chair Transfer Technique Ambulation Transfer Ability Level of Assist Independent,Use of Upper Extremities Gait Assessment Gait Gait Assistance Required: Independent,Standby Assistance ,1 Person Assist Distance (Feet) 50 Able to Maintain Weight Bearing Status Yes During Gait Assistive Devices Assistive Device Gait Belt,Forearm Crutches Orthotic/Prosthetic Devices or Brace: No Gait Deviations General Gait Pattern Antalgic,Decreased Stride Length,Decreased Feet Clearance,Step-to Gait Factors Limiting Gait Function Factors Limiting Gait Function Decreased Strength,Limited Range of Motion Comments Gait Comments Pt gait trains well with her forearm crutches and she advances one crutch with opposite leg for each step Stair Climbing Assessment Evaluation Level of Assist On Stairs Standby Assistance,Contact Guard Assistance Technique/Endurance Stair Climbing Direction Ascend and Descend Stair Climbing Technique Step to Step Number of Steps Climbed 1 Stair Climbing Set # Repetitions (reps) 2 Comments Stair Climbing Comments Forearm crutches and ed to step up first with good foot and down first with bad foot PT-Balance Assessment Sitting Balance and Reactions Static Sitting Balance Ability Normal Dynamic Sitting Balance Ability Normal Standing Balance and Reactions Static Standing Balance Ability Normal Dynamic Standing Balance Ability Good M5 PT-IP Objective Assessments Start: 11/15/24 08:37 Freq: NEEDED Status: Active Protocol: Document 11/16/24 14:05 MB (Rec: 11/16/24 14:34 MB [id number]) Orientation Orientation/Cognition Level of Alertness Alert Orientation Name,Age,Birthday,Month,Date, Year,Day of Week,Place, Situation Language Function Ability No Deficits Noted Safety Awareness Decreased Safety Awareness Memory Description No Deficits Noted Gross Range of Motion Upper Extremity ROM Impairments Defer to OT Lower Extremity ROM Assessment Bilaterally Impaired Strength Lower Extremity Strength Assessment Bilaterally Impaired Ankle 4/5 B ankle DF and great toe extension Comments Strength Comments Pt's right foot is IR/inverted at baseline and she reports limited B hip movement from right hip issues and previous left hip placement that did not recover well and she did not get PT after it, she does not tolerate full range and strength ROM Coordination Assessment Gross Coordination Gross Coordination Impaired Sensation Assessment Sensation Gross Sensation WNL Muscle Tone Muscle Tone WNL Yes Comments Muscle Tone Comments Increased tension in B PFs M6 PT-IP Treatment Start: 11/15/24 08:37 Freq: NEEDED Status: Active Protocol: Document 11/22/24 13:40 MB (Rec: 11/22/24 14:13 MB [id number]) Physical Therapy Treatment Education Education Provided Precautions,Safety M7 PT-IP Assessment and Plan Start: 11/15/24 08:37 Freq: NEEDED Status: Active Protocol: Document 11/22/24 13:40 MB (Rec: 11/22/24 14:13 MB [id number]) PT Summary Assessment and Plan Potential Rehabilitation Potential Excellent Summary Impairments Pain,ROM,Strength,Balance,Bed Mobility,Transfers,Gait Progress Towards Goals Progressing Toward Goals,Safe For Discharge Assessment Summary Pt does well with transfers, gait and 1 step with forearm crutches today. Discussed d/c and pt is appropriate for and agreeable to d/c home with OPPT. Frequency of Treatment Frequency Of Treatment Discharge Precautions Posterior Hip Precautions No Hip Flexion > 90 degrees,No Hip Internal Rotation,No Hip Adduction Other Precautions No hip abduction strengthening on op report Weight Bearing Status Weight Bearing Status Weight Bear as Tolerated Allowed Weight Bearing Amount (enter % RLE WBAT or #) (%) Recommendations To Nursing Amount of Assist Needed Standby Assistance Discharge Recommendations PT Discharge Recommendations Home with Assistance, Outpatient PT Transportation Needs at Discharge Private Vehicle
[2024-11-22 16:00] VITALS: BP 145/71; PULSE 98; RESP 18; TEMP 36.4; O2SAT 98
--- NOTE | 2024-11-22 16:27 | CM.DPNOTE ---
Discussed in rounds and with PT, PT now rec home with outpatient PT, pt agreeable- unsure of options in [place] that accept . Per Dr. Aguilar patient is appropriate for d/c home tomorrow with outpatient PT. BRENDAN Nolan
--- NOTE | 2024-11-22 17:16 | P.DS_ITS ---
History of Present Illness History of Present Illness Date Patient Seen: 11/22/24 Time Patient Seen: 08:40 Date of Onset of Symptoms: 11/15/24 Chief complaint: fall, chronic rt femur problem Narrative: From Night doctor: 59 year old female with past medical history of severe bilateral degenerative arthritis of both hips s/p left hip replacement and awaiting right hip replcement,IDDM with peripheral neuropathy and HTN presents with ground level fall and right hip pain. Per the patient's report, the patient acccidentaly slipped and fell landing on her right hip today. The patient denies any LOC or head injury but states that she has severe pain on her right hip and unable to ambulate. Of note, the patient was awaiting as outpatient to get her dental extractions done before right hip elective surgery. The patient otherwise denies any fever, chills, nausea, vomiting, chest pain or shortness of breath. In our ER, the patient was hemodynamically stable. CT hip shows right femoral neck fracture. Orthopedic surgery consulted and plan for OR. NOte patient was found to have otitis media and antibiotics given. Labs are pending. Additonal information: She was taken to the operating room this morning for a hemiarthroplasty and surgery went well and she had 300 mL of EBL. She was seen after coming back from the OR in his doing well. She was good pain control, she had a spinal. She denies any dyspnea, or chest pain. Discharge Providers Provider Date of admission: 11/15/24 04:32 Discharge Date: 11/22/24 Consults: 11/15/24 04:35 Consult to Occupational Therapy Evaluate & Treat Comment: Physician Instructions: Evaluate and treat Consult to Physical Therapy Evaluate & Treat Comment: Physician Instructions: Evaluate and Treat 11/15/24 06:08 Consult to Speech Therapy Evaluate & Treat Comment: Physician Instructions: Evaluate and treat 11/15/24 17:06 Consult to Discharge Planning Routine Comment: plan dc home with outpt PT Consult to Occupational Therapy Evaluate & Treat Comment: Physician Instructions: Evaluate and treat Consult to Physical Therapy Evaluate & Treat Comment: php walker vs forearm crutches Physician Instructions: post op MARLENE protocol Discharge provider: Zurdo Aguilar MD Summary Hospital Course Discharge Diagnosis: 1. Right hip fracture due to ground level fall, likely pathologic due to osteoporosis. 2. Otitis externa. Continue topical antibiotics. Present on admission and improving. 3. Type 2 diabetes mellitus. 4. HTN. 5. Dental cavities. 6. Acute blood loss anemia secondary to surgical blood loss. Hospital Course: Patient was admitted and underwent operative repair on 11/15/2019 5 without incident. She had an unremarkable postoperative course. Diabetes was inadequate controlled on Lantus insulin was increased 20 units daily. Had dental cavities and outpatient evaluation for extraction is planned. She was treated with DVT prophylaxis during her hospitalization. She was considered for possible [facility] facility placement though improved significantly he was able to walk independently with physical therapy at the time of discharge. Outpatient arrangements were made for health services. No other issues arose. Status at Discharge Cognitive/behavioral status at discharge: oriented Functional status at discharge: independent ambulation Overall status at discharge: patient is progressing back to baseline Time Spent with Patient Time spent: Less than 30 minutes Exam Vital Signs (past 8 hours): Fraction of Inspired Oxygen 24 SaO2/FiO2 Ratio 404 Oxygen Delivery Method Room Air Oxygen Flow Rate 0 Narrative Exam Narrative: NAD, alert and oriented. Fluent speech. Lungs are clear, normal rate and effort. Heart is regular, no murmur gallop or rub. Abdomen is soft, non distended. Extremities are free of edema. Right hip bandage in place, clean, dry and intact. Objective Labs 11/19/24 05:30 11/19/24 05:30 [facility] Surgical History S/P ACL reconstruction Social History household members: spouse lives independently: Yes caregiver/support person: Yes Smoking Status: Never smoker alcohol intake: never Discharge Plan Discharge Plan Patient Disposition: Home Health Service Provider Discharge Comment: Followup with PCP 1 week and orthopedics as advised. Discharge orders & Medications Prescriptions: New acetaminophen 325 mg Tablet 650 mg PO Q6H Qty: 30 0RF aspirin 81 mg Tablet,Delayed Release (Dr/Ec) 81 mg PO BID Qty: 30 0RF insulin glargine [Lantus Solostar U-100 Insulin] 100 unit/mL (3 mL) Insulin Pen 20 unit SUBCUT 2100 Qty: 15 0RF Continued furosemide 40 mg tablet 40 mg PO DAILY atorvastatin 40 mg tablet 40 mg PO DAILY tizanidine 4 mg tablet 4 mg PO 3XD nortriptyline 25 mg capsule 25 mg PO BID oxycodone-acetaminophen 10-325 mg tablet 1 tab PO Q4H PRN (Reason: Pain (Scale Score 7-10)) gabapentin 300 mg capsule 300 mg PO 3XD metformin 500 mg tablet extended release 24 hr 1,000 mg PO BID hydrochlorothiazide 12.5 mg tablet 12.5 mg PO DAILY fluticasone propionate [Flonase Allergy Relief] 50 mcg/actuation [place],Suspension 2 spray INTRANASAL DAILY Rx Instructions: administer into each nostril cholecalciferol (vitamin D3) 250 mcg (10,000 unit) Capsule 250 mcg PO DAILY Rx Instructions: every other day Discontinued insulin glargine [Lantus Solostar U-100 Insulin] 100 unit/mL (3 mL) insulin pen 10 unit SUBCUT BEDTIME Patient Comments: [NO ORIGINAL SIG] Visit Report/Discharge Packet Instructions: DI for Hip Replacement, How to Prevent Falls, DI for Prescription Opioid Use Stand Alone Forms: [facility] HANNAH Drain, Patient Portal/API, Stroke Signs & Symptoms Quality VTE Deep Vein Thrombosis/Pulmonary Embolism Present on Admission: No MIPS - Admit I confirm the patient?s Advance Care Plan is present, Code status is documented, Surrogate decision maker is in patient?s record [If Yes, STOP here]: Yes MIPS - Meds 'Current medications' to include all prescriptions, [id number] products, herbals, cannabis/cannabidiol products, and vitamin/mineral/dietary (nutritional) supplements. I have utilized all available resources to obtain, update, or review the patient?s current medications. [If Yes, STOP here]: Yes MIPS - DC The patient has a history of heart transplant or Left Ventricular Assist Device (LVAD). If yes, STOP here.: No The patient has current or prior documentation of left ventricular ejection fraction (LVEF) less than or equal to 40%, or moderate or severely depressed left ventricular systolic function.: No A. The patient was prescribed or already taking an Angiotensin-Converting Enzyme (HUGO) Inhibitor, or Angiotensin Receptor Ramon (ARB).: No B. The patient was prescribed or already taking a beta-ramon. [If Yes to Both A & B, STOP here]: No Patient not prescribed/taking HUGO or ARB, no reason given.: No Patient not prescribed/taking beta-ramon, no reason given.: No PROFEE Charge Codes Discharge inpatient/observation: 10098
--- NOTE | 2024-11-22 17:24 | CM.SWNOTE ---
DCP Continued: Reviewed EMR and team rounds for pt?s medical status. Per RN, pt requesting clarity of discharge plans due to progress with PT and no authorizations. DCP entered room, introduced self and role. Present in the room is pt's . Patient was dressed for discharge. DCP discussed goals of care, pt reports she understands she might not qualify for SNF due to progress made with PT/OT. Pt endorsed feeling comfortable with discharging home with spouse and preference for OP PT. Pt declined offers for home health referral or any other services in the community. Plan: Anticipating discharge home with spouse to transport, will follow up for outpatient PT. CM Team will continue to follow for coordination of discharge plans. CODY Sue
--- NOTE | 2024-11-22 17:44 | PC.NURSE ---
Pt states ready for discharge, that PT stated she was going tonight, spouse at bedside with belongings packed. This RN spoke with CM and provider for clarification. Discharge ordered. Pt and spouse agreeable to discharge plan to home with home health services. Pt able to ambulate in room SBA w/ home crutches. Education provided on safety, fall prevention, stroke s/s, followup appointments, and dressing care. No IV access to d/c. Pt wheeled via w/c with PCT and spouse to private vehicle at approximately 1745.
== END 2024-11-22 17:45 | disposition home health service (06) | DRG 522 ==
LOC: ED 11-15 02:46 → AC 11-15 04:34
PROVIDERS: Internal Medicine; Orthopaedic Surgery; Admitting Provider Internal Medicine; Emergency Provider Emergency Medicine; Visit Provider Internal Medicine
PROC: 0SR90JZ Replacement of Right Hip Joint with Synthetic Substitute, Open Approach (ICD-10-PCS; CPT 27130; principal; 2024-11-15 10:00)
DX: M80.051A Age-related osteoporosis with current pathological fracture, right femur, initial encounter for fracture (principal); Z59.19 Other inadequate housing; E11.42 Type 2 diabetes mellitus with diabetic polyneuropathy; I10 Essential (primary) hypertension; R01.1 Cardiac murmur, unspecified; K02.9 Dental caries, unspecified; M16.11 Unilateral primary osteoarthritis, right hip; G56.01 Carpal tunnel syndrome, right upper limb; E66.9 Obesity, unspecified; M24.551 Contracture, right hip; M47.812 Spondylosis without myelopathy or radiculopathy, cervical region; H60.93 Unspecified otitis externa, bilateral; M25.561 Pain in right knee; M79.7 Fibromyalgia; E11.65 Type 2 diabetes mellitus with hyperglycemia; Z79.4 Long term (current) use of insulin; Z79.84 Long term (current) use of oral hypoglycemic drugs; Z68.32 Body mass index [BMI] 32.0-32.9, adult; Z98.890 Other specified postprocedural states
CPT/HCPCS: 36415; 71045; 72170; 72192; 73502; 73552; 73562; 80053; 81001; 82962; 83735; 85025; 92610; 93005; 94762; 97110; 97116; 97162; 97166; 97530; 97535; 99283; 99285; C1776; A9270; C1713; J0690; J1100; J1171; J1815; J1885; J2250; J2405; J2704; J3010; J3410